=== PATIENT | female | born 1950 | race Caucasian/White ===

== ENCOUNTER → 2017-06-15 | Outpatient (CLI) | payer MEDICARE, BC | END | disposition home or self-care (01) | LOC: LABWHC1 11:53 | PROVIDERS: ATTEND Orthopaedic Surgery | DX: Z01.812 Encounter for preprocedural laboratory examination (principal) | CPT/HCPCS: 87070 ==

== ENCOUNTER → 2017-07-12 | Outpatient (CLI) | payer MEDICARE, BC ==
--- NOTE | 2017-07-12 15:02 | US ---
EXAMINATION TYPE: US venous doppler duplex LE LT DATE OF EXAM: 07/12/2017 2:39 PM COMPARISON: NONE CLINICAL HISTORY: S89.92XA,injury of left lower leg M79.605Pain in l; taking Xarelto x 4 years since PE after back surgery; recent fall between bed and camper wall with injury to left knee and below SIDE PERFORMED: Left TECHNIQUE: The lower extremity deep venous system is examined utilizing real time linear array sonog shana with graded compression, doppler sonography and color-flow sonography. VESSELS IMAGED: Common Femoral Vein Deep Femoral Vein Greater Saphenous Vein * Femoral Vein Popliteal Vein Small Saphenous Vein * Proximal Calf Veins (* superficial vessels) Left Leg: Hyperechoic intimal thickening noted left Femoral Vein mid and distally suggests non occlu ding DVT with chronic wall changes. IMPRESSION: Nonoccluding DVT as discussed above.
== END | disposition home or self-care (01) ==
LOC: RADUSWWP 13:46
PROVIDERS: ATTEND Family Medicine
DX: I82.412 Acute embolism and thrombosis of left femoral vein (principal)

== ENCOUNTER → 2017-08-03 | Outpatient (CLI) | payer MEDICARE, BC ==
[2017-08-03 13:32] LABS: Albumin 4.3 g/dL (3.5-5.0); Potassium 4.4 mmol/L (3.5-5.1); Total Bilirubin 0.4 mg/dL (0.2-1.3); Total Protein 6.9 g/dL (6.3-8.2)
[2017-08-03 13:34] LABS: INR 1.1 (<1.2); Partial Thromboplastin Time 23.1 sec (22.0-30.0); Prothrombin Time 10.4 sec (9.0-12.0)
[2017-08-03 13:50] LABS: Anisocytosis Slight; HCT 41.2 % (34.0-46.0); HGB 13.4 gm/dL (11.4-16.0); Hypochromasia Slight; MCHC 32.5 g/dL (31.0-37.0); MCV 95.4 fL (80.0-100.0); Mean Platelet Volume 7.3; Platelet Count 269 k/uL (150-450); RBC 4.32 m/uL (3.80-5.40); RDW 16.1 % (11.5-15.5); WBC 9.8 k/uL (3.8-10.6)
[2017-08-03 13:59] LABS: Appearance,Urine Turbid (Clear); Bacteria,Urine Moderate /hpf; Bilirubin,Urine Negative (Negative); Blood,Urine Small (Negative); Color,Urine Yellow; Glucose,Urine (UA) Negative (Negative); Hyaline Casts,Urine 14 /lpf (0-2); Ketones,Urine Negative (Negative); Leukocyte Esterase,Urine Large (Negative); Nitrite,Urine Positive (Negative); Protein,Urine Trace (Negative); RBC,Urine 127 /hpf (0-5); Specific Gravity,Urine 1.012 (1.001-1.035); Urobilinogen,Urine <2.0 mg/dL (<2.0); WBC,Urine >182 /hpf (0-5)
== END | disposition home or self-care (01) ==
LOC: LABPAT 12:38
PROVIDERS: ATTEND Orthopaedic Surgery
DX: Z01.812 Encounter for preprocedural laboratory examination (principal); Z79.01 Long term (current) use of anticoagulants
CPT/HCPCS: 36415; 80053; 81001; 85027; 85610; 85730

== ENCOUNTER 2017-08-10 09:14 | Inpatient (IN) | payer MEDICARE, BC ==
[2017-07-30 13:46] VITALS: BMI 44.4
[~2017-08-10 09:14] MED LIST: ACETAMINOPHEN TAB 500 MG TAB PO ONE; HYDROmorphone 0.5 MG/0.5 ML SYRINGE IVP PRN; LIDOCAINE 1% 20 ML VIAL (10MG/ML) FOR IV START INTRADERMA PRN; MELOXICAM 7.5 MG TAB PO ONE; ONDANSETRON 4 MG/2 ML VIAL IVP ONE; TRANEXAMIC ACID 1,000 MG in SODIUM CHLORIDE 0.9% 50 ML IVPB ONE
[2017-08-10 09:43] LABS: Glucose,Whole Blood 114 mg/dL (75-99)
[2017-08-10] MEDS: LACTATED RINGERS 1,000 ML IV SCH (09:45)
[2017-08-10] MEDS ORDERED: PHENYLEPHRINE-0.9% NACL SYG 1 MG/10 ML SYRINGE ONE (11:12)
[2017-08-10] MEDS ORDERED: SUCCINYLCHOLINE CHLORIDE 100 MG/5 ML SYR IV ONE (11:12)
[2017-08-10] MEDS ORDERED: MIDAZOLAM 2 MG/2 ML VIAL ONE (11:12)
[2017-08-10] MEDS ORDERED: SODIUM CHLORIDE 0.9% 100 ML BAG ONE (11:12)
[2017-08-10] MEDS ORDERED: LIDOCAINE 1% INJ 10MG/ML (20 ML MDV) ONE (11:12)
[2017-08-10] MEDS ORDERED: fentaNYL (PF) 50 MCG/ML 2 ML AMP ONE (11:12)
[2017-08-10] MEDS ORDERED: ePHEDrine SULFATE/0.9% NACL/PF 50 MG/5 ML SYRINGE IV ONE (11:12)
[2017-08-10] MEDS ORDERED: HEPARIN SODIUM,PORCINE 10,000 UNIT/ML 1 ML VIAL ONE (11:12)
[2017-08-10] MEDS ORDERED: KETAMINE 10 MG/ML 20 ML VIAL ONE (11:12)
[2017-08-10] MEDS ORDERED: SODIUM CHLORIDE 0.9% IRRIG 1,000 ML BTL IRRIGATION ONE (11:12)
[2017-08-10] MEDS ORDERED: PROPOFOL 10 MG/ML 20 ML VIAL IV ONE (11:12)
[2017-08-10] MEDS ORDERED: TRANEXAMIC ACID 1,000 MG/10 ML VIAL ONE (11:12)
[2017-08-10] MEDS: ROPIVACAINE 246.25 MG, EPINEPHrine 0.5 MG, KETOROLAC 30 MG, cloNIDine HCL/PF 80 MCG, WA... MISCELLANE ONE ×10 (11:20→11:48)
[2017-08-10] MEDS ORDERED: LACTATED RINGERS 1,000 ML IV ONE (12:17)
--- NOTE | 2017-08-10 12:42 | P.OP ---
Date of Procedure: 08/10/17 Preoperative Diagnosis: Severe osteoarthritis right hip Postoperative Diagnosis: Severe osteoarthritis right hip Procedure(s) Performed: Right total hip arthroplasty with a direct anterior approach Implants: Lao and nephew Polarstem size 5 standard Lao & Nephew R3, 3 hole acetabular shell, 52 mm Lao & Nephew reflection 6.5 mm cancellus screw, 20 mm 2 Lao & Nephew R3, XLPE 20 acetabular liner Lao & Nephew Oxinium femoral head 36 m, +4 All components were press-fit. The articulation is Oxinium on polyethylene. Anesthesia: GETA Surgeon: Hi Dykes Can Sealer #1: Daisy Stubbs Estimated Blood Loss (ml): 150 (60 mL returned with Cell Saver) Pathology: other (Femoral head) Condition: stable Disposition: PACU Indications for Procedure: After failure of conservative treatment we discussed the surgical and nonsurgical treatment options at length. Patient wishes to proceed with a total hip arthroplasty with a direct anterior approach. Complications specific to this procedure were discussed at length, including but not limited to infection, leg length discrepancy, dislocation, and nerve injury. Patient is aware of all these complications and informed consent was obtained Operative Findings: The operative findings are consistent with severe osteoarthritis of the right hip Description of Procedure: Patient was seen and evaluated in the preoperative area, consent was reviewed, and the surgical site was marked with a skin marker. Patient was then brought to the operating room and given prophylactic antibiotics intravenously. 1 g of Tranexamic acid was also given. A general anesthetic was administered by the anesthesia department. The patient was then placed on the [place] table with the bony prominences well-padded. The hip area was then prepped and draped in usual sterile fashion. A universal timeout was then performed, which confirmed the patient's name, surgical site, ALLERGIES, and procedure being performed. Next the incision site was located at 1 cm distal and 1 cm lateral to the anterior superior iliac spine. The skin and subcutaneous tissues were sharply incised. Incision was carefully dissected down to the fascia overlying the tensor fascia wilson muscle. This fascia was then incised in line with the incision. Next, using blunt finger dissection, the tensor fascia wilson muscle was dissected off its investing fascia. The muscle was then carefully retracted laterally with a cobra retractor over the lateral neck of the femur. Next, the circumflex vessels were identified and cauterized using the AquaMantis device. The anterior hip capsule was then exposed. The capsule was then opened and an inverted T fashion. Cobra retractors were then placed intracapsularly. The proximal femur was then visualized. The femoral neck was then osteotomized appropriate level above the lesser trochanter. Small amount of traction was placed with the [place] table. A small wedge of bone was then removed from the remaining femoral head. Next, using a corkscrew femoral head was easily removed from the acetabulum. On gross visual inspection, the femoral head had complete loss of articular cartilage in multiple periarticular osteophytes. Attention was then turned to the acetabulum. the acetabulum was exposed and any remaining labrum was excised. Sequential reaming of the acetabulum was performed using fluoroscopic guidance. When the appropriate size was reached, a trial was then placed. The position and fit of the trial was checked with fluoroscopy. The trial was then removed. Then, using fluoroscopic guidance, the final implant was impacted at 20 of anteversion and 40 of abduction, and fully seated in the acetabulum. 2 screws were then placed in the acetabulum. Again fluoroscopy was used to check position of the screws. Next, the liner was then impacted, with a 20 elevated liner located in the anterior superior quadrant. Component locking was confirmed. Attention was then directed to the femur. With the aid of the [place] table, the femur was externally rotated to approximately 130, extended, and abducted under the opposite leg. A side hook was then placed under the proximal femur, and the side hook elevator was used to elevate the proximal femur. Retractors were then placed. A capsular release was performed, as well as a release of the conjoined tendon, which afforded excellent visualization of the proximal femur. Next, a box osteotome was used to lateralize the proximal femur. A hand picker was then used to locate the femoral canal. Sequential broaching was then performed with appropriate size which afforded excellent fixation in the proximal femur. A trial was then placed with appropriate head and neck, and the hip was gently reduced with the aid of the [place] table. Fluoroscopy was then used to check position of the components, as well as to ensure equal leg lengths. The hip was then gently dislocated and the trials were then removed. Final implants were then impacted and the hip was again reduced. Final fluoroscopic x-rays confirmed that the components were in anatomic position, as well as equal leg lengths. The hip was also taken through range of motion, and found to be stable. The hip was then copiously irrigated with antibiotic solution with pulsatile lavage. The hip was then irrigated with Irrisept solution. The soft tissues were then injected with a ropivacaine solution, which consisted of 246.25 mg of ropivacaine, 0.5 mg of epinephrine, 30 mg of Toradol, 80 g of clonidine, and 48.45 mL of sterile water, for a total of 100 mL of fluid injected. A second dose of 1 g of Tranexamic acid was also given. the fascia was then closed with 2-0 strata fix suture. The subcutaneous tissue was closed with 3-0 Vicryl. The subcuticular tissue was closed with 3-0 strata fix suture. The skin was then closed with Dermabond glue and a sterile silver dressing. The patient was then transferred to the recovery room in stable condition. The assistant boys track coach KRISTA Posada was required due to the complexity of surgery, and the need for skilled assistant director of financial aid for positioning, draping, exposure, retraction, and closure of the wound.
--- NOTE | 2017-08-10 12:55 | FL ---
Fluoroscopy HISTORY: Anterior hip replacement 45 seconds fluoroscopy time supplied to the referring clinician. 3 intraoperative C-arm images docum ent the procedure. See dictated report from orthopedic surgery.
--- NOTE | 2017-08-10 13:04 | XR ---
Limited right hip HISTORY: Hip arthroplasty 3 intraoperative C-arm images document the procedure.
[2017-08-10] MEDS ORDERED: NALOXONE 0.4 MG/ML 1 ML VIAL IV PRN (14:36)
[2017-08-10] MEDS ORDERED: hydrOXYzine PAMOATE 25 MG CAP PO PRN (14:36)
[2017-08-10] MEDS ORDERED: DIAZEPAM 5 MG TAB PO PRN ×2 (14:36)
[2017-08-10] MEDS ORDERED: ONDANSETRON 4 MG/2 ML VIAL IVP PRN (14:36)
[2017-08-10] MEDS ORDERED: HYDROcodone/APAP 5-325MG 1 EACH TAB PO PRN (14:36)
[2017-08-10] MEDS ORDERED: HYDROmorphone 0.5 MG/0.5 ML SYRINGE IVP PRN ×3 (14:36)
[2017-08-10] MEDS ORDERED: MAGNESIUM HYDROXIDE 2,400 MG/10 ML CUP PO PRN (14:36)
--- NOTE | 2017-08-10 15:40 | XR ---
EXAMINATION TYPE: XR Hip Limited RT DATE OF EXAM: 08/10/2017 COMPARISON: NONE HISTORY: Postop TECHNIQUE: One view submitted. FINDINGS: There is postsurgical change in near anatomic alignment. There is soft tissue edema and emphysema. IMPRESSION: 1. Postoperative change. Appears in near-anatomic alignment.
[2017-08-10] MEDS ORDERED: GABAPENTIN 300 MG CAP PO PRN (16:13)
--- NOTE | 2017-08-10 17:11 | P.CONS ---
History of Present Illness - Reason for Consult Consult date: 08/10/17 Medical management Requesting physician: Hi Dykes - Chief Complaint s/p total right hip arthroplasty - History of Present Illness This is a 66-year-old female of Dr. Maddox. Status post total right hip arthroplasty with Dr. Dykes. Patient has a known medical history of GERD, depression, diabetes type 2, DVT and PE in which she takes xeralto at home. Patient also states that she has mitral valve prolapse in which she had a stress test and was cleared by cardiology prior to surgery. Patient is currently resting comfortably in bed. denies chest pain, shortness of breath, nausea or vomiting. Patient is having blood pressures in the 90s and complaining of some dizziness the low blood pressure. 500 mL normal saline bolus has been ordered and a home blood pressure medications have been held. Patient currently on xeralto per ortho surgerical services. Antibiotics have also ordered per surgical services. Surgical site clean dry and intact. Review of Systems Please see HPI otherwise unremarkable Past Medical History Past Medical History: Asthma, Diabetes Mellitus, Deep Vein Thrombosis (DVT), GERD/Reflux, Hyperlipidemia, Hypertension, Mitral Valve Prolapse (MVP), Osteoarthritis (OA), Pulmonary Embolus (PE), Thyroid Disorder Additional Past Medical History / Comment(s): scoliosis History of Any Multi-Drug Resistant Organisms: None Reported Past Surgical History: Back Surgery, Breast Surgery, Cholecystectomy, Heart Catheterization, Hernia Repair, Hysterectomy Additional Past Surgical History / Comment(s): spinal surgery with screws and metal plate, jennifer breast reduction Past Anesthesia/Blood Transfusion Reactions: No Reported Reaction Past Psychological History: Depression Smoking Status: Former smoker Past Alcohol Use History: Rare Additional Past Alcohol Use History / Comment(s): smoked 47 years 2 ppd quit Past Drug Use History: None Reported - Past Family History Mother Family Medical History: Cancer, Pneumonia Additional Family Medical History / Comment(s): breast cancer Medications and Allergies Home Medications Medication Instructions Recorded Confirmed Type Ranitidine HCl 150 mg PO BID 06/23/13 08/10/17 History Rivaroxaban [Xarelto] 15 mg PO DAILY 06/23/13 08/10/17 History Simvastatin [Zocor] 40 mg PO HS 06/23/13 08/10/17 History Terbinafine [LamISIL] 250 mg PO BID 06/23/13 08/10/17 History buPROPion HCL [Wellbutrin XL] 300 mg PO DAILY 06/23/13 08/10/17 History metFORMIN HCL [Glucophage] 500 mg PO BID 06/23/13 08/10/17 History predniSONE 20 mg PO DAILY #4 day 06/23/13 08/10/17 Rx rOPINIRole HCL [Requip] 0.25 mg PO HS 06/23/13 08/10/17 History Ascorbic Acid [Vitamin C] 500 mg PO DAILY 07/30/17 08/10/17 History Cholecalciferol [Vitamin D3] 1,000 unit PO DAILY 07/30/17 08/10/17 History DULoxetine HCL [Cymbalta] 60 mg PO DAILY 07/30/17 08/10/17 History Fluticasone/Umeclidin/Vilanter 1 puff INHALATION RT-DAILY 07/30/17 08/10/17 History [Trelegy Ellipta 100-62.5-25] Furosemide [Lasix] 40 mg PO DAILY 07/30/17 08/10/17 History Gabapentin [Neurontin] 300 mg PO DAILY PRN 07/30/17 08/10/17 History Levothyroxine Sodium [Synthroid] 25 mcg PO DAILY 07/30/17 08/10/17 History Losartan [Cozaar] 100 mg PO DAILY 07/30/17 08/10/17 History Mirabegron [Myrbetriq] 50 mg PO DAILY 07/30/17 08/10/17 History Multivitamins, Thera [Multivitamin 1 tab PO DAILY 07/30/17 08/10/17 History (formulary)] OLANZapine [ZyPREXA] 7.5 mg PO DAILY 07/30/17 08/10/17 History Vitamin E 1,000 unit PO DAILY 07/30/17 08/10/17 History Allergies Allergy/AdvReac Type Severity Reaction Status Date / Time No Known Allergies Allergy Verified 08/10/17 15:12 Physical Exam Vitals: Vital Signs Temp Pulse Resp BP Pulse Ox 08/10/17 14:00 100 16 120/59 95 08/10/17 13:45 97 18 110/59 95 08/10/17 13:27 96 16 105/55 93 L 08/10/17 13:19 97.0 F L 98 12 92/53 91 L 08/10/17 09:33 97.2 F L 97 16 134/77 93 L Intake and Output 08/10/17 08/10/17 08/10/17 06:59 14:59 22:59 Intake Total 1350 Output Total 150 Balance 1200 Intake: IV 1350 Output: Estimated Blood Loss 150 Head normocephalic Neck supple Lungs clear to auscultation bilaterally no wheezing or crackles Heart regular rate and rhythm S1-S2, no rub or gallop Abdomen is soft nontender nondistended positive bowel sounds no hepatosplenomegaly Extremities no edema. Right hip dressing clean dry and intact Neuro alert and orientated to 3 Results Labs: Abnormal Lab Results - Last 24 Hours (Table) 08/10/17 Range/Units 09:38 POC Glucose (mg/dL) 114 H (75-99) mg/dL Assessment and Plan Assessment: 1. post total right hip arthroplasty with Dr. Dykes. Patient currently on Kefzol and xeralto per surgical services. 2. Postsurgical hypotension: Patient received 500 mL bolus. Home blood medications currently on hold including Lasix, Aldactone and Cozaar 3. History of mitral valve prolapse. Patient states she had stress test and clearance from cardiology prior to surgery 4. History of DVT and pulmonary embolism. Patient was maintained on xeralto at home. Xeralto 20 mg by mouth ordered per Orthos services 5. Diabetes mellitus type 2. Sliding scale insulin ordered 6. History of bipolar depression. Patient states she takes Abilify, Wellbutrin , Cymbalta and Zyprexa at home. Medications will be reordered 7. History of hyperlipidemia 8. History of hypertension. Current blood pressure medications are on hold due to hypotension 9. Hypothyroidism. Patient's Synthroid resumed. DVT prophylaxis xeralto and SCDs. GI prophylaxis Pepcid Thank you for this consult. I performed an examination of the patient and discussed their management with the Nurse Practitioner. I have reviewed the Nurse Practitioner's notes and agree with the documented findings and plan of care Time with Patient: Greater than 30 (Greater than 60% of the total time spent in counseling and coordination of care)
[2017-08-10 17:19] LABS: Glucose,Whole Blood 149 mg/dL (75-99)
[2017-08-10] MEDS: SODIUM CHLORIDE 0.9% 1,000 ML IV SCH (18:06)
[2017-08-10] MEDS: INSULIN ASPART 100 UNIT/ML 1 ML 10 ML VIAL SQ SCH ×2 (18:16→21:26)
[2017-08-10 21:19] LABS: Glucose,Whole Blood 122 mg/dL (75-99)
[2017-08-10] MEDS: ATORVASTATIN 20 MG TAB PO SCH (21:26)
[2017-08-10] MEDS: SENNOSIDES-DOCUSATE SODIUM 1 EACH TAB PO SCH (21:26)
[2017-08-11] MEDS: SODIUM CHLORIDE 0.9% 1,000 ML IV SCH ×2 (03:10→11:45)
[2017-08-11] MEDS: LEVOTHYROXINE 25 MCG TAB PO SCH (06:21)
[2017-08-11 07:01] LABS: Glucose,Whole Blood 133 mg/dL (75-99)
[2017-08-11] MEDS: INSULIN ASPART 100 UNIT/ML 1 ML 10 ML VIAL SQ SCH ×4 (07:10→21:35)
[2017-08-11 07:30] LABS: Basophils % (A) 0 %; Eosinophils # (A) 0.1 k/uL (0-0.7); Eosinophils % (A) 1 %; HCT 36.6 % (34.0-46.0); HGB 11.5 gm/dL (11.4-16.0); Hypochromasia Slight; Lymphocytes # (A) 0.8 k/uL (1.0-4.8); Lymphocytes % (A) 7 %; MCH 29.5 pg (25.0-35.0); MCHC 31.4 g/dL (31.0-37.0); Mean Platelet Volume 7.3; Monocytes # (A) 0.7 k/uL (0-1.0); Monocytes % (A) 6 %; Neutrophils # (A) 9.7 k/uL (1.3-7.7); Neutrophils % (A) 84 %; Platelet Count 260 k/uL (150-450); RBC 3.89 m/uL (3.80-5.40); RDW 15.1 % (11.5-15.5); WBC 11.5 k/uL (3.8-10.6)
[2017-08-11 07:42] LABS: Albumin 3.4 g/dL (3.5-5.0); Potassium 5.1 mmol/L (3.5-5.1); Total Bilirubin 0.4 mg/dL (0.2-1.3); Total Protein 5.7 g/dL (6.3-8.2)
[2017-08-11] MEDS: TRELEGY ELLIPTA INHALATION SCH (08:10)
[2017-08-11] MEDS: ASCORBIC ACID 500 MG TAB PO SCH (09:06)
[2017-08-11] MEDS: buPROPion XL 300 MG TAB.ER.24H PO SCH (09:06)
[2017-08-11] MEDS: CHOLECALCIFEROL 1,000 UNIT TAB PO SCH (09:06)
[2017-08-11] MEDS: OLANZapine 2.5 MG TAB PO SCH (09:06)
[2017-08-11] MEDS: DULoxetine HCL 60 MG CAPSULE.DR PO SCH (09:06)
[2017-08-11] MEDS: HYDROcodone/APAP 5-325MG 1 EACH TAB PO PRN ×3 (09:06→21:58)
[2017-08-11] MEDS: FAMOTIDINE 20 MG TAB PO SCH (09:06)
[2017-08-11] MEDS: LACTATED RINGERS 1,000 ML IV SCH (09:41)
--- NOTE | 2017-08-11 10:35 | P.PN ---
Subjective Progress Note Date: 08/11/17 This is a 66-year-old female of Dr. Maddox. Status post total right hip arthroplasty with Dr. Dykes. Patient has a known medical history of GERD, depression, diabetes type 2, DVT and PE in which she takes xeralto at home. Patient also states that she has mitral valve prolapse in which she had a stress test and was cleared by cardiology prior to surgery. Patient is currently resting comfortably in bed. denies chest pain, shortness of breath, nausea or vomiting. Patient is having blood pressures in the 90s and complaining of some dizziness the low blood pressure. 500 mL normal saline bolus has been ordered and a home blood pressure medications have been held. Patient currently on xeralto per ortho surgerical services. Antibiotics have also ordered per surgical services. Surgical site clean dry and intact. On 08/11/2017 patient is currently sitting up in chair. Patient is sleepy due to administration of pain medication prior but able to answer questions. Patient states she has been up walking. Patient had episodes of hypotension yesterday. Patient received 2 500 mL boluses. Current blood pressure 102/65. Home blood pressure medications currently on hold. White blood cell this a.m. 11.5, UA and culture along with chest x-ray have been ordered. Bun 32 and creatinine 1.83. We'll continue IV fluid at 100 and continue to hold Aldactone , losartan and Lasix. Patient questioned about home medication of prednisone, patient states she took it for a temporary time for her breathing but has not been on it for multiple weeks. . Objective - Vital Signs Vital signs: Vital Signs Temp 98.3 F 08/11/17 07:35 Pulse 62 08/11/17 07:35 Resp 14 08/11/17 07:35 BP 102/65 08/11/17 07:35 Pulse Ox 96 08/11/17 07:35 Intake & Output 08/10/17 08/11/17 08/11/17 18:59 06:59 18:59 Intake Total 1350 1500 Output Total 150 Balance 1200 1500 Weight 140.6 kg Intake: IV 1350 Intake, IV Titration 900 Amount Sodium Chloride 0.9% 1, 800 000 ml @ 100 mls/hr IV . Q10H [facility] Rx#:[id number] ceFAZolin 3 gm In Sodium 100 Chloride 0.9% 50 ml @ 100 mls/hr IVPB Q8H [facility] Rx#: [id number] Oral 600 Output: Estimated Blood Loss 150 Other: Voiding Method Toilet # Voids 1 - Exam Head normocephalic Neck supple Lungs clear to auscultation bilaterally no wheezing or crackles Heart regular rate and rhythm S1-S2, no rub or gallop Abdomen is soft nontender nondistended positive bowel sounds no hepatosplenomegaly Extremities no edema, right hip dressing clean dry and intact Neuro alert and orientated to 3. Patient sleepy but arousable and answers questions appropriatley. - Labs CBC & Chem 7: 08/11/17 06:40 08/11/17 06:40 Labs: Abnormal Lab Results - Last 24 Hours (Table) 08/10/17 08/10/17 08/11/17 Range/Units 16:43 21:06 06:40 WBC 11.5 H (3.8-10.6) k/uL Neutrophils # 9.7 H (1.3-7.7) k/uL Lymphocytes # 0.8 L (1.0-4.8) k/uL BUN (7-17) mg/dL Creatinine (0.52-1.04) mg/dL Glucose (74-99) mg/dL POC Glucose (mg/dL) 149 H 122 H (75-99) mg/dL Total Protein (6.3-8.2) g/dL Albumin (3.5-5.0) g/dL 08/11/17 08/11/17 Range/Units 06:40 06:59 WBC (3.8-10.6) k/uL Neutrophils # (1.3-7.7) k/uL Lymphocytes # (1.0-4.8) k/uL BUN 32 H (7-17) mg/dL Creatinine 1.83 H (0.52-1.04) mg/dL Glucose 117 H (74-99) mg/dL POC Glucose (mg/dL) 133 H (75-99) mg/dL Total Protein 5.7 L (6.3-8.2) g/dL Albumin 3.4 L (3.5-5.0) g/dL Assessment and Plan Assessment: 1. post total right hip arthroplasty with Dr. Dykes. Patient currently on Kefzol and xarelto per surgical services. 2. Postsurgical hypotension: Patient received 500 mL bolus. Home blood medications currently on hold including Lasix, Aldactone and Cozaar. Blood pressure now 102/65 we'll continue to hold home blood pressure medications. 3. History of mitral valve prolapse. Patient states she had stress test and clearance from cardiology prior to surgery 4. History of DVT and pulmonary embolism. Patient was maintained on xarelto at home. Xarelto 20 mg by mouth ordered per [facility] services 5. Diabetes mellitus type 2. Sliding scale insulin ordered 6. History of bipolar depression. Patient states she takes Abilify, Wellbutrin , Cymbalta and Zyprexa at home. Medications will be reordered. Psych consulted due to multiple medications 7. History of hyperlipidemia 8. History of hypertension. Current blood pressure medications are on hold due to hypotension 9. Hypothyroidism. Patient's Synthroid resumed. 10. Acute kidney injury. Bun 32, creatinine 1.83. Will continue IV fluid at 100. We'll continue to hold home medications of Aldactone, Lasix, Cozaar. 11. Leukocytosis. White blood cell 11.5. Analysis, urine culture and chest x- ray has been ordered. Prednisone 20 mg listed on her home medications discussed with patient. Patient states she has not taken medication in multiple weeks and was prescribed by her primary care provider for breathing issues. DVT prophylaxis xeralto and SCDs. GI prophylaxis Pepcid
--- NOTE | 2017-08-11 11:00 | P.PN ---
Subjective Progress Note Date: 08/11/17 This is a 66 year-old female who is status post right total hip arthroplasty. This is postoperative day #1. Patient is seen and evaluated at bedside with Dr. Hi Dykes. Patient states that her pain is well-controlled. Patient denies any fever/chills, numbness, weakness, tingling, abdominal pain, shortness of breath or chest pain. Objective - Vital Signs Vital signs: Vital Signs Temp 98.3 F 08/11/17 07:35 Pulse 62 08/11/17 07:35 Resp 14 08/11/17 07:35 BP 102/65 08/11/17 07:35 Pulse Ox 96 08/11/17 07:35 Intake & Output 08/10/17 08/11/17 08/11/17 18:59 06:59 18:59 Intake Total 1350 1500 Output Total 150 Balance 1200 1500 Weight 140.6 kg Intake: IV 1350 Intake, IV Titration 900 Amount Sodium Chloride 0.9% 1, 800 000 ml @ 100 mls/hr IV . Q10H [facility] Rx#:[id number] ceFAZolin 3 gm In Sodium 100 Chloride 0.9% 50 ml @ 100 mls/hr IVPB Q8H [facility] Rx#: [id number] Oral 600 Output: Estimated Blood Loss 150 Other: Voiding Method Toilet # Voids 1 - Exam Vital signs are stable. Patient is in no acute distress and is alert and oriented 3. Calf is soft and nontender to palpation. Dressing is clean, dry, and intact. Patient has full foot and ankle motion without pain or difficulty. Neurovascular status and circulatory status are intact. - Labs CBC & Chem 7: 08/11/17 06:40 08/11/17 06:40 Labs: Abnormal Lab Results - Last 24 Hours (Table) 08/10/17 08/10/17 08/11/17 Range/Units 16:43 21:06 06:40 WBC 11.5 H (3.8-10.6) k/uL Neutrophils # 9.7 H (1.3-7.7) k/uL Lymphocytes # 0.8 L (1.0-4.8) k/uL BUN (7-17) mg/dL Creatinine (0.52-1.04) mg/dL Glucose (74-99) mg/dL POC Glucose (mg/dL) 149 H 122 H (75-99) mg/dL Total Protein (6.3-8.2) g/dL Albumin (3.5-5.0) g/dL 08/11/17 08/11/17 Range/Units 06:40 06:59 WBC (3.8-10.6) k/uL Neutrophils # (1.3-7.7) k/uL Lymphocytes # (1.0-4.8) k/uL BUN 32 H (7-17) mg/dL Creatinine 1.83 H (0.52-1.04) mg/dL Glucose 117 H (74-99) mg/dL POC Glucose (mg/dL) 133 H (75-99) mg/dL Total Protein 5.7 L (6.3-8.2) g/dL Albumin 3.4 L (3.5-5.0) g/dL Assessment and Plan (1) Primary osteoarthritis of right hip Current Visit: Yes Status: Acute Code(s): M16.11 - UNILATERAL PRIMARY OSTEOARTHRITIS, RIGHT HIP SNOMED Code(s): 069411800 (2) S/P total hip arthroplasty Current Visit: Yes Status: Acute Code(s): Z96.649 - PRESENCE OF UNSPECIFIED ARTIFICIAL HIP JOINT SNOMED Code(s): 031368253608 Plan: Continue routine postop care. Continue antocoagulation with Xarelto. Weightbearing as tolerated with a walker Leave dressing in place for 1 week Likely discharge to rehab Wednesday.
[2017-08-11 11:52] LABS: Glucose,Whole Blood 130 mg/dL (75-99)
--- NOTE | 2017-08-11 13:12 | XR ---
EXAMINATION TYPE: XR chest 2V DATE OF EXAM: 08/11/2017 COMPARISON: Prior chest x-ray 04/17/2013 HISTORY: Elevated white blood cell count, longterm placement, postop TECHNIQUE: Frontal and lateral views of the chest are obtained. FINDINGS: Patchy basilar density is present. There is no evident pneumothorax or pleural effusion. C ardiac mediastinal silhouette, pulmonary vascularity and michelle are stable. Prominent lung volume may b e indicative of COPD. IMPRESSION: Basilar atelectasis, correlate to exclude pneumonia, follow-up suggested.
--- NOTE | 2017-08-11 13:42 | P.CN ---
Psychiatric Consult - . Consult date: 08/11/17 Consult:: Identification data/reason for consult: The patient is a 66-year-old female admitted to surgery for right hip arthroplasty. The surgeons submitted a consult to evaluate the patient's multiple psychiatric medications. Psychiatric history: I reviewed the medical record and interviewed the patient. She confirmed that she is taking for psychotropic medications; Abilify 20 mg daily, Wellbutrin XL 300 mg daily, Cymbalta 60 mg daily and Zyprexa 7.5 mg daily. She stated that she's been taking this medication combination for " about 8 months." The medications are prescribed by her primary care provider, Dr. Maddox, at [facility]. She denied side effects to the medications and reported a marked improvement in her mood since she was taking this medication combination. Her daughter was also present during interview and remarked that her mother "is doing the best I seen her." She denied feeling depressed, sad, hopeless or helpless. She denied thoughts of or suicide. She described a history of depression and treatment of depression for more than 20 years. She received all of her psychotropic medications from her primary care provider. She had met with an individual therapist in the past but was transitioned out of individual therapy several years ago. She described a history of classic depressive symptoms including hopelessness, helplessness and worthlessness, feelings of guilt, thoughts of suicide, insomnia , impairment in her capacity etc. She denied a history of sustained irritability, elevated mood or euphoria consistent with kaykay or hypomania. She denied a history of psychotic symptoms such as auditory, visual or olfactory house hallucinations. She denied history of problems with alcohol or drugs. Past psychiatric history: She denied psychiatric hospitalizations. She denied history of suicide attempts or gestures. Social history: She lives in [facility] screen was In particular her of 47 years. They are retired. He has a daughter, son and 6 grandchildren. Mental status examination she presented as an obese 66-year-old female who was pleasant on approach. She made eye contact and attempted to interview. She had no prominent physical abnormalities. She had a blunted but bright facial expression. She is alert and oriented to person, place and time. She showed psychomotor retardation but no abnormal involuntary movements. Her speech was spontaneous with normal rate, rhythm and volume. Her affect was blunted but stable and appropriate. She denied suicidal ideation or wishes. She denied homicidal ideation. She denied such depressive cognitions as hopelessness, helplessness and worthlessness. She did not express ideas reference, phobias, paranoid ideation, magical ideation or delusional thoughts or beliefs. Her thinking was abstract and associations were coherent, logical and goal directed. She denied hallucinations and did not appear to be responding to internal stimuli. Impression: Major depressive disorder recurrent in full sustained remission Recommendation: Continue current psychiatric medications. Refer to her primary care provider for continued management of the medications and the discussion of any changes if necessary. Thank you for this consult. 08/11/17 13:30
[2017-08-11] MEDS: RIVAROXABAN 20 MG TAB PO SCH (17:23)
[2017-08-11 17:24] LABS: Glucose,Whole Blood 135 mg/dL (75-99)
[2017-08-11 20:57] LABS: Glucose,Whole Blood 138 mg/dL (75-99)
[2017-08-11] MEDS: ATORVASTATIN 20 MG TAB PO SCH (21:35)
[2017-08-11] MEDS: SENNOSIDES-DOCUSATE SODIUM 1 EACH TAB PO SCH (21:35)
[2017-08-12] MEDS: HYDROcodone/APAP 5-325MG 1 EACH TAB PO PRN ×4 (04:47→21:24)
[2017-08-12] MEDS: LEVOTHYROXINE 25 MCG TAB PO SCH (06:23)
[2017-08-12 07:04] LABS: Glucose,Whole Blood 135 mg/dL (75-99)
[2017-08-12 07:17] LABS: Albumin 3.2 g/dL (3.5-5.0); Calcium 9.1 mg/dL (8.4-10.2); Potassium 4.5 mmol/L (3.5-5.1); Total Bilirubin 0.5 mg/dL (0.2-1.3); Total Protein 5.6 g/dL (6.3-8.2)
[2017-08-12] MEDS: INSULIN ASPART 100 UNIT/ML 1 ML 10 ML VIAL SQ SCH ×4 (07:32→21:23)
[2017-08-12] MEDS: TRELEGY ELLIPTA INHALATION SCH (07:48)
[2017-08-12] MEDS: SODIUM CHLORIDE 0.9% 1,000 ML IV SCH ×3 (07:53→21:33)
[2017-08-12] MEDS: LACTATED RINGERS 1,000 ML IV SCH (07:54)
[2017-08-12] MEDS: FAMOTIDINE 20 MG TAB PO SCH (08:28)
[2017-08-12] MEDS: ASCORBIC ACID 500 MG TAB PO SCH (08:28)
[2017-08-12] MEDS: buPROPion XL 300 MG TAB.ER.24H PO SCH (08:28)
[2017-08-12] MEDS: CHOLECALCIFEROL 1,000 UNIT TAB PO SCH (08:28)
[2017-08-12] MEDS: OLANZapine 2.5 MG TAB PO SCH (08:29)
--- NOTE | 2017-08-12 08:29 | P.PN ---
Subjective Progress Note Date: 08/12/17 This is a 66 year-old female who is status post right total hip arthroplasty. This is postoperative day #2. Patient is seen and evaluated at bedside. Patient states that her pain is well-controlled today and she has been up and walking with physical therapy. Patient denies any fever/chills, numbness, weakness, tingling, abdominal pain, shortness of breath or chest pain. Objective - Vital Signs Vital signs: Vital Signs Temp 97.2 F L 08/12/17 07:15 Pulse 86 08/12/17 07:15 Resp 12 08/12/17 07:15 BP 113/71 08/12/17 07:15 Pulse Ox 95 08/12/17 07:15 Intake & Output 08/11/17 08/12/17 08/12/17 18:59 06:59 18:59 Intake Total 400 300 550 Balance 400 300 550 Intake: Intake, IV Titration 400 Amount Sodium Chloride 0.9% 1, 400 000 ml @ 100 mls/hr IV . Q10H [facility] Rx#:[id number] Oral 300 550 Other: Voiding Method Toilet Bedside Commode # Voids 2 3 1 - Exam Vital signs are stable. Patient is in no acute distress and is alert and oriented 3. Calf is soft and nontender to palpation. Dressing is clean, dry, and intact. Patient has full foot and ankle motion without pain or difficulty. Neurovascular status and circulatory status are intact. - Labs CBC & Chem 7: 08/11/17 06:40 08/12/17 06:17 Labs: Abnormal Lab Results - Last 24 Hours (Table) 08/11/17 08/11/17 08/11/17 Range/Units 11:38 17:15 20:35 BUN (7-17) mg/dL Creatinine (0.52-1.04) mg/dL Glucose (74-99) mg/dL POC Glucose (mg/dL) 130 H 135 H 138 H (75-99) mg/dL Total Protein (6.3-8.2) g/dL Albumin (3.5-5.0) g/dL 08/12/17 08/12/17 Range/Units 06:17 06:47 BUN 28 H (7-17) mg/dL Creatinine 1.22 H (0.52-1.04) mg/dL Glucose 122 H (74-99) mg/dL POC Glucose (mg/dL) 135 H (75-99) mg/dL Total Protein 5.6 L (6.3-8.2) g/dL Albumin 3.2 L (3.5-5.0) g/dL Assessment and Plan (1) Primary osteoarthritis of right hip Current Visit: Yes Status: Acute Code(s): M16.11 - UNILATERAL PRIMARY OSTEOARTHRITIS, RIGHT HIP SNOMED Code(s): 072716734 (2) S/P total hip arthroplasty Current Visit: Yes Status: Acute Code(s): Z96.649 - PRESENCE OF UNSPECIFIED ARTIFICIAL HIP JOINT SNOMED Code(s): 607168105211 Plan: Continue routine postop care. Continue antocoagulation with Xarelto. Weightbearing as tolerated with a walker Leave dressing in place for 1 week Likely discharge to rehab Wednesday.
[2017-08-12] MEDS: DULoxetine HCL 60 MG CAPSULE.DR PO SCH (09:41)
[2017-08-12 09:52] LABS: Basophils % (A) 0 %; Eosinophils # (A) 0.2 k/uL (0-0.7); Eosinophils % (A) 3 %; HCT 32.7 % (34.0-46.0); HGB 10.2 gm/dL (11.4-16.0); Lymphocytes # (A) 0.7 k/uL (1.0-4.8); Lymphocytes % (A) 8 %; MCH 29.3 pg (25.0-35.0); MCHC 31.3 g/dL (31.0-37.0); MCV 93.5 fL (80.0-100.0); Mean Platelet Volume 8.3; Monocytes # (A) 0.7 k/uL (0-1.0); Monocytes % (A) 8 %; Neutrophils # (A) 6.6 k/uL (1.3-7.7); Neutrophils % (A) 80 %; Platelet Count 200 k/uL (150-450); WBC 8.3 k/uL (3.8-10.6)
--- NOTE | 2017-08-12 10:41 | P.PN ---
Subjective Progress Note Date: 08/12/17 This is a 66-year-old female of Dr. Maddox. Status post total right hip arthroplasty with Dr. Dykes. Patient has a known medical history of GERD, depression, diabetes type 2, DVT and PE in which she takes xeralto at home. Patient also states that she has mitral valve prolapse in which she had a stress test and was cleared by cardiology prior to surgery. Patient is currently resting comfortably in bed. denies chest pain, shortness of breath, nausea or vomiting. Patient is having blood pressures in the 90s and complaining of some dizziness the low blood pressure. 500 mL normal saline bolus has been ordered and a home blood pressure medications have been held. Patient currently on xeralto per ortho surgerical services. Antibiotics have also ordered per surgical services. Surgical site clean dry and intact. On 08/11/2017 patient is currently sitting up in chair. Patient is sleepy due to administration of pain medication prior but able to answer questions. Patient states she has been up walking. Patient had episodes of hypotension yesterday. Patient received 2 500 mL boluses. Current blood pressure 102/65. Home blood pressure medications currently on hold. White blood cell this a.m. 11.5, UA and culture along with chest x-ray have been ordered. Bun 32 and creatinine 1.83. We'll continue IV fluid at 100 and continue to hold Aldactone , losartan and Lasix. Patient questioned about home medication of prednisone, patient states she took it for a temporary time for her breathing but has not been on it for multiple weeks. 08/12/2017 patient sitting up in bed. She has taken her oxygen off. She does not feel short of breath. We will monitor her off of oxygen. Denies any chest pain shortness of breath. Denies any nausea or vomiting. Reports passing gas no bowel movement yet. Denies any difficulty urinating. Creatinine is improving down to 1.22. White count normalized 8.3. Hemoglobin dropped to 10.2 Objective - Vital Signs Vital signs: Vital Signs Temp 97.2 F L 08/12/17 07:15 Pulse 86 08/12/17 07:15 Resp 12 08/12/17 07:15 BP 113/71 08/12/17 07:15 Pulse Ox 95 08/12/17 07:15 Intake & Output 08/11/17 08/12/17 08/12/17 18:59 06:59 18:59 Intake Total 400 300 550 Balance 400 300 550 Intake: Intake, IV Titration 400 Amount Sodium Chloride 0.9% 1, 400 000 ml @ 100 mls/hr IV . Q10H [facility] Rx#:[id number] Oral 300 550 Other: Voiding Method Toilet Bedside Commode # Voids 2 3 1 - Exam Head normocephalic Neck supple Lungs clear to auscultation bilaterally no wheezing or crackles Heart regular rate and rhythm S1-S2, no rub or gallop Abdomen is soft nontender nondistended positive bowel sounds no hepatosplenomegaly Extremities no edema. Right hip dressing clean dry and intact, no cellulitis Neuro alert and orientated to 3 - Labs CBC & Chem 7: 08/12/17 06:17 08/12/17 06:17 Labs: Abnormal Lab Results - Last 24 Hours (Table) 08/11/17 08/11/17 08/11/17 Range/Units 11:38 17:15 20:35 RBC (3.80-5.40) m/uL Hgb (11.4-16.0) gm/dL Hct (34.0-46.0) % Lymphocytes # (1.0-4.8) k/uL BUN (7-17) mg/dL Creatinine (0.52-1.04) mg/dL Glucose (74-99) mg/dL POC Glucose (mg/dL) 130 H 135 H 138 H (75-99) mg/dL Total Protein (6.3-8.2) g/dL Albumin (3.5-5.0) g/dL 08/12/17 08/12/17 08/12/17 Range/Units 06:17 06:17 06:47 RBC 3.50 L (3.80-5.40) m/uL Hgb 10.2 L (11.4-16.0) gm/dL Hct 32.7 L (34.0-46.0) % Lymphocytes # 0.7 L (1.0-4.8) k/uL BUN 28 H (7-17) mg/dL Creatinine 1.22 H (0.52-1.04) mg/dL Glucose 122 H (74-99) mg/dL POC Glucose (mg/dL) 135 H (75-99) mg/dL Total Protein 5.6 L (6.3-8.2) g/dL Albumin 3.2 L (3.5-5.0) g/dL Assessment and Plan Assessment: 1. Status post total right hip arthroplasty with Dr. Dykes. Patient currently on Kefzol and xarelto per surgical services. 2. Postsurgical hypotension: Patient received 500 mL bolus. Home blood medications currently on hold including Lasix, Aldactone and Cozaar. Blood pressure slowly showing improvement. Continue to hold BP home medications 3. History of mitral valve prolapse. Patient states she had stress test and clearance from cardiology prior to surgery 4. History of DVT and pulmonary embolism. Patient was maintained on xarelto at home. Xarelto 20 mg by mouth ordered per [facility] 5. Diabetes mellitus type 2. Sliding scale insulin ordered 6. History of bipolar, depression. Patient states she takes Abilify, Wellbutrin, Cymbalta and Zyprexa at home. Medications will be reordered. Patient seen by psychiatry. They're recommending CT continue current home psych medications 7. History of hyperlipidemia 8. History of hypertension. Current blood pressure medications are on hold due to hypotension 9. Hypothyroidism. Patient's Synthroid resumed. 10. Acute kidney injury. Bun 32, creatinine 1.83. We'll continue to hold home medications of Aldactone, Lasix, Cozaar. Kidney function improving. Continue to monitor 11. Leukocytosis. Resolved. Chest x-ray showing atelectasis. Doubt pneumonia. Patient denies any cough or fever. Encourage incentive spirometer use. Urinalysis pending Prednisone 20 mg listed on her home medications discussed with patient. Patient states she has not taken medication in multiple weeks and was prescribed by her primary care provider for breathing issues. 12. Expected acute blood loss anemia secondary to surgical procedure. We'll start iron supplement. Repeat CBC in a.m. DVT prophylaxis Xarelto and GI prophylaxis Pepcid Anticipate discharge to [facility] tomorrow I performed an examination of the patient and discussed their management with the physician Radio Reporter. I have reviewed the Physician Radio Reporter's notes and agree with the documented findings and plan of care
[2017-08-12 11:06] LABS: Glucose,Whole Blood 147 mg/dL (75-99)
[2017-08-12 17:18] LABS: Glucose,Whole Blood 116 mg/dL (75-99)
[2017-08-12] MEDS: RIVAROXABAN 20 MG TAB PO SCH (17:29)
[2017-08-12 19:45] LABS: Glucose,Whole Blood 176 mg/dL (75-99)
[2017-08-12] MEDS: ATORVASTATIN 20 MG TAB PO SCH (21:23)
[2017-08-12] MEDS: FERROUS SULFATE 325 MG TAB PO SCH (21:23)
[2017-08-12] MEDS: SENNOSIDES-DOCUSATE SODIUM 1 EACH TAB PO SCH (21:23)
[2017-08-13 02:07] VITALS: RESP 16; TEMP 98.3
[2017-08-13] MEDS: HYDROcodone/APAP 5-325MG 1 EACH TAB PO PRN ×2 (03:58→10:07)
[2017-08-13] MEDS: LACTATED RINGERS 1,000 ML IV SCH (05:28)
[2017-08-13] MEDS: LEVOTHYROXINE 25 MCG TAB PO SCH (06:22)
[2017-08-13 06:54] LABS: Basophils % (A) 0 %; Eosinophils # (A) 0.3 k/uL (0-0.7); Eosinophils % (A) 3 %; HCT 31.2 % (34.0-46.0); HGB 9.7 gm/dL (11.4-16.0); Lymphocytes # (A) 0.8 k/uL (1.0-4.8); Lymphocytes % (A) 10 %; MCH 29.1 pg (25.0-35.0); MCHC 31.2 g/dL (31.0-37.0); MCV 93.6 fL (80.0-100.0); Mean Platelet Volume 7.4; Monocytes # (A) 0.5 k/uL (0-1.0); Monocytes % (A) 7 %; Neutrophils # (A) 6.4 k/uL (1.3-7.7); Neutrophils % (A) 78 %; Platelet Count 233 k/uL (150-450); RBC 3.34 m/uL (3.80-5.40); WBC 8.2 k/uL (3.8-10.6)
[2017-08-13 06:56] LABS: Potassium 4.5 mmol/L (3.5-5.1); Total Bilirubin 0.4 mg/dL (0.2-1.3); Total Protein 5.4 g/dL (6.3-8.2)
[2017-08-13 06:58] LABS: Glucose,Whole Blood 144 mg/dL (75-99)
[2017-08-13 07:28] VITALS: BP 128/76; PULSE 80
[2017-08-13] MEDS: INSULIN ASPART 100 UNIT/ML 1 ML 10 ML VIAL SQ SCH ×2 (08:10→12:08)
[2017-08-13] MEDS: TRELEGY ELLIPTA INHALATION SCH (08:16)
--- NOTE | 2017-08-13 08:22 | P.DS ---
Providers Date of admission: 08/10/17 09:14 Expected date of discharge: 08/13/17 Attending physician: Hi Dykes Consults: 08/10/17 14:36 Consult Physician Routine Consulting Provider: Geneva Maddox Consult Reason/Comments: medical management and anticoagulation Do you want consulting provider notified?: Yes 08/10/17 15:35 Consult Physician Routine Consulting Provider: Kalee Sweet Consult Reason/Comments: medical management Do you want consulting provider notified?: Yes 08/10/17 17:18 Consult Physician Routine Consulting Provider: Isak Oneal Consult Reason/Comments: Multiple psych medications Do you want consulting provider notified?: Yes 08/10/17 18:30 Consult Physician Routine Consulting Provider: Mati Roberts Consult Reason/Comments: Multiple psych medications Do you want consulting provider notified?: Already Contacted Primary care physician: Geneva Maddxo - Discharge Diagnosis(es) (1) Primary osteoarthritis of right hip Current Visit: Yes Status: Acute (2) S/P total hip arthroplasty Current Visit: Yes Status: Acute Hospital Course: This is a 66-year-old female with known history of degenerative arthritis of the right hip. The patient presents for evaluation. After discussion and consideration patient elects to proceed with total hip arthroplasty. The patient is seen preoperatively by Dr. Dykes and medically cleared for surgery by their primary care physician. Patient is admitted to [facility] on 08/10/2017 for total hip arthroplasty. The procedures performed without complication or sequelae. The patient is doing well postoperatively. Labs and vital signs are stable on day of discharge. On day of discharge patient's hip incision is healing well. There is minimal erythema. There is no drainage noted at this time. There is minimal soft tissue swelling to the hip and thigh. Patient has full foot and ankle motion without difficulty or pain. Neurovascular status to the right lower extremity is intact. Patient is discharged to rehab in good condition. Please see med rec for accurate list of home medications. Plan - Discharge Summary Discharge Rx Participant: Yes New Discharge Prescriptions: New HYDROcodone/APAP 5-325MG [[place] 5-325] 1 - 2 tab PO Q4-6H PRN #90 tab PRN Reason: Pain Rivaroxaban [Xarelto] 1 tab PO DAILY #30 tab Sennosides [Senokot] 1 tab PO BID #60 tablet No Action rOPINIRole HCL [Requip] 0.25 mg PO HS buPROPion HCL [Wellbutrin XL] 300 mg PO DAILY metFORMIN HCL [Glucophage] 500 mg PO BID Simvastatin [Zocor] 40 mg PO HS Rivaroxaban [Xarelto] 15 mg PO DAILY Ranitidine HCl 150 mg PO BID Terbinafine [LamISIL] 250 mg PO BID predniSONE 20 mg PO DAILY #4 day Furosemide [Lasix] 40 mg PO DAILY Multivitamins, Thera [Multivitamin (formulary)] 1 tab PO DAILY Cholecalciferol [Vitamin D3] 1,000 unit PO DAILY Ascorbic Acid [Vitamin C] 500 mg PO DAILY Vitamin E 1,000 unit PO DAILY Fluticasone/Umeclidin/Vilanter [Trelegy Ellipta 100-62.5-25] 1 puff INHALATION RT-DAILY Levothyroxine Sodium [Synthroid] 25 mcg PO DAILY OLANZapine [ZyPREXA] 7.5 mg PO DAILY Mirabegron [Myrbetriq] 50 mg PO DAILY DULoxetine HCL [Cymbalta] 60 mg PO DAILY Losartan [Cozaar] 100 mg PO DAILY Gabapentin [Neurontin] 300 mg PO DAILY PRN PRN Reason: Pain Spironolactone [Aldactone] 500 mg PO DAILY ARIPiprazole [Abilify] 20 mg PO DAILY Discharge Medication List Ranitidine HCl 150 mg PO BID 06/23/13 [History] Rivaroxaban [Xarelto] 15 mg PO DAILY 06/23/13 [History] Simvastatin [Zocor] 40 mg PO HS 06/23/13 [History] Terbinafine [LamISIL] 250 mg PO BID 06/23/13 [History] buPROPion HCL [Wellbutrin XL] 300 mg PO DAILY 06/23/13 [History] metFORMIN HCL [Glucophage] 500 mg PO BID 06/23/13 [History] predniSONE 20 mg PO DAILY #4 day 06/23/13 [Rx] rOPINIRole HCL [Requip] 0.25 mg PO HS 06/23/13 [History] Ascorbic Acid [Vitamin C] 500 mg PO DAILY 07/30/17 [History] Cholecalciferol [Vitamin D3] 1,000 unit PO DAILY 07/30/17 [History] DULoxetine HCL [Cymbalta] 60 mg PO DAILY 07/30/17 [History] Fluticasone/Umeclidin/Vilanter [Trelegy Ellipta 100-62.5-25] 1 puff INHALATION RT-DAILY 07/30/17 [History] Furosemide [Lasix] 40 mg PO DAILY 07/30/17 [History] Gabapentin [Neurontin] 300 mg PO DAILY PRN 07/30/17 [History] Levothyroxine Sodium [Synthroid] 25 mcg PO DAILY 07/30/17 [History] Losartan [Cozaar] 100 mg PO DAILY 07/30/17 [History] Mirabegron [Myrbetriq] 50 mg PO DAILY 07/30/17 [History] Multivitamins, Thera [Multivitamin (formulary)] 1 tab PO DAILY 07/30/17 [History ] OLANZapine [ZyPREXA] 7.5 mg PO DAILY 07/30/17 [History] Vitamin E 1,000 unit PO DAILY 07/30/17 [History] ARIPiprazole [Abilify] 20 mg PO DAILY 08/10/17 [History] Spironolactone [Aldactone] 500 mg PO DAILY 08/10/17 [History] HYDROcodone/APAP 5-325MG [[place] 5-325] 1 - 2 tab PO Q4-6H PRN #90 tab 08/13/17 [ Rx] Rivaroxaban [Xarelto] 1 tab PO DAILY #30 tab 08/13/17 [Rx] Sennosides [Senokot] 1 tab PO BID #60 tablet 08/13/17 [Rx] Follow up Appointment(s)/Referral(s): Hi Dykes DO [Doctor of Osteopathic Medicine] - 08/23/17 3:40 pm Geneva Maddox DO [Primary Care Provider] - 08/17/17 1:00 pm (With Veronique) Activity/Diet/Wound Care/Special Instructions: Weightbearing as tolerated with walker Leave dressing intact. Dressing may be removed by home care nurse in 10 days. May shower with dressing on. Follow-up with [facility] in 2 weeks, please call with any questions or concerns [phone] Discharge Disposition: TRANSFER TO SNF/ECF
[2017-08-13] MEDS: DULoxetine HCL 60 MG CAPSULE.DR PO SCH (08:24)
[2017-08-13] MEDS: FERROUS SULFATE 325 MG TAB PO SCH (08:24)
[2017-08-13] MEDS: ASCORBIC ACID 500 MG TAB PO SCH (08:24)
[2017-08-13] MEDS: FAMOTIDINE 20 MG TAB PO SCH (08:24)
[2017-08-13] MEDS: CHOLECALCIFEROL 1,000 UNIT TAB PO SCH (08:24)
[2017-08-13] MEDS: buPROPion XL 300 MG TAB.ER.24H PO SCH (08:24)
[2017-08-13] MEDS: OLANZapine 2.5 MG TAB PO SCH (08:25)
[2017-08-13 11:27] LABS: Glucose,Whole Blood 130 mg/dL (75-99)
--- NOTE | 2017-08-13 12:30 | P.PN ---
Subjective Progress Note Date: 08/13/17 This is a 66-year-old female of Dr. Maddox. Status post total right hip arthroplasty with Dr. Dykes. Patient has a known medical history of GERD, depression, diabetes type 2, DVT and PE in which she takes xeralto at home. Patient also states that she has mitral valve prolapse in which she had a stress test and was cleared by cardiology prior to surgery. Patient is currently resting comfortably in bed. denies chest pain, shortness of breath, nausea or vomiting. Patient is having blood pressures in the 90s and complaining of some dizziness the low blood pressure. 500 mL normal saline bolus has been ordered and a home blood pressure medications have been held. Patient currently on xeralto per ortho surgerical services. Antibiotics have also ordered per surgical services. Surgical site clean dry and intact. On 08/11/2017 patient is currently sitting up in chair. Patient is sleepy due to administration of pain medication prior but able to answer questions. Patient states she has been up walking. Patient had episodes of hypotension yesterday. Patient received 2 500 mL boluses. Current blood pressure 102/65. Home blood pressure medications currently on hold. White blood cell this a.m. 11.5, UA and culture along with chest x-ray have been ordered. Bun 32 and creatinine 1.83. We'll continue IV fluid at 100 and continue to hold Aldactone , losartan and Lasix. Patient questioned about home medication of prednisone, patient states she took it for a temporary time for her breathing but has not been on it for multiple weeks. 08/12/2017 patient sitting up in bed. She has taken her oxygen off. She does not feel short of breath. We will monitor her off of oxygen. Denies any chest pain shortness of breath. Denies any nausea or vomiting. Reports passing gas no bowel movement yet. Denies any difficulty urinating. Creatinine is improving down to 1.22. White count normalized 8.3. Hemoglobin dropped to 10.2 August 13 2017 patient sitting up in bedside chair. Pain is controlled. She denies any chest pain shortness breath. Denies any nausea or vomiting. Reports passing gas. No bowel movement. Denies any difficulty urinating. Hemoglobin has dropped to 9.2 she needs to continue her ferrous sulfate. Recommend checking a CBC in 1 week. Kidney functions have improved creatinine is normal at 0.94. Objective - Vital Signs Vital signs: Vital Signs Temp 98.3 F 08/13/17 07:27 Pulse 80 08/13/17 07:27 Resp 16 08/13/17 07:27 BP 128/76 08/13/17 07:27 Pulse Ox 94 L 08/13/17 08:16 Intake & Output 08/12/17 08/13/17 08/13/17 18:59 06:59 18:59 Intake Total 770 1190 Balance 770 1190 Intake: Intake, IV Titration 100 650 Amount Sodium Chloride 0.9% 1, 100 650 000 ml @ 50 mls/hr IV . Q20H [facility] Rx#:[id number] Oral 670 540 Other: Voiding Method Bedside Commode Toilet Bedside Commode # Voids 1 2 # Bowel Movements 0 - Exam Head normocephalic Neck supple Lungs clear to auscultation bilaterally no wheezing or crackles Heart regular rate and rhythm S1-S2, no rub or gallop Abdomen is soft nontender nondistended positive bowel sounds no hepatosplenomegaly Extremities no edema. Right hip dressing clean dry and intact, no cellulitis Neuro alert and orientated to 3 - Labs CBC & Chem 7: 08/13/17 06:13 08/13/17 06:13 Labs: Abnormal Lab Results - Last 24 Hours (Table) 08/12/17 08/12/17 08/13/17 Range/Units 17:11 19:43 06:13 RBC 3.34 L (3.80-5.40) m/uL Hgb 9.7 L (11.4-16.0) gm/dL Hct 31.2 L (34.0-46.0) % Lymphocytes # 0.8 L (1.0-4.8) k/uL BUN (7-17) mg/dL Glucose (74-99) mg/dL POC Glucose (mg/dL) 116 H 176 H (75-99) mg/dL Total Protein (6.3-8.2) g/dL Albumin (3.5-5.0) g/dL 08/13/17 08/13/17 08/13/17 Range/Units 06:13 06:56 11:12 RBC (3.80-5.40) m/uL Hgb (11.4-16.0) gm/dL Hct (34.0-46.0) % Lymphocytes # (1.0-4.8) k/uL BUN 23 H (7-17) mg/dL Glucose 121 H (74-99) mg/dL POC Glucose (mg/dL) 144 H 130 H (75-99) mg/dL Total Protein 5.4 L (6.3-8.2) g/dL Albumin 3.0 L (3.5-5.0) g/dL Assessment and Plan Assessment: 1. Status post total right hip arthroplasty with Dr. Dykes. Patient currently on Kefzol and xarelto per surgical services. 2. Expected postoperative hypotension: Likely medication induced from anesthesia and pain medication and also hypokalemic. Improved with IV fluids. Patient received 500 mL bolus. Home blood medications currently on hold including Lasix, Aldactone and Cozaar. Blood pressure slowly showing improvement. Continue to hold BP home medications. Blood pressure medications have been adjusted. Lasix and Aldactone discontinued during this admission. Cozaar has been decreased from 100 to 50 mg daily 3. History of mitral valve prolapse. Patient states she had stress test and clearance from cardiology prior to surgery 4. History of DVT and pulmonary embolism. Patient was maintained on xarelto at home. Xarelto 20 mg by mouth ordered per [facility] 5. Diabetes mellitus type 2. Okay to resume oral hypoglycemics 6. History of bipolar, depression. Patient states she takes Abilify, Wellbutrin, Cymbalta and Zyprexa at home. Medications will be reordered. Patient seen by psychiatry. They're recommending CT continue current home psych medications 7. History of hyperlipidemia 8. History of hypertension. Current blood pressure medications are on hold due to hypotension 9. Hypothyroidism. Patient's Synthroid resumed. 10. Acute kidney injury. Bun 32, creatinine 1.83. Kidney function improving. Continue to monitor. Creatinine 0.94 at discharge. Kidney functions have normalized 11. Leukocytosis. Resolved. Chest x-ray showing atelectasis. Doubt pneumonia. Patient denies any cough or fever. Encourage incentive spirometer use. Urinalysis pending Prednisone 20 mg listed on her home medications discussed with patient. Patient states she has not taken medication in multiple weeks and was prescribed by her primary care provider for breathing issues. 12. Expected acute blood loss anemia secondary to surgical procedure. Patient started on iron supplement. Recheck CBC in 1 week DVT prophylaxis Xarelto and GI prophylaxis Pepcid Patient is medical stable for discharge to [facility] Dr. Sweet to follow at [facility] I performed an examination of the patient and discussed their management with the physician Nailing Machine Feeder. I have reviewed the Physician Nailing Machine Feeder's notes and agree with the documented findings and plan of care
== END 2017-08-13 15:15 | DRG 470 ==
LOC: 2ORMAIN 09:14 → 3SUR 13:14
PROVIDERS: ADMIT Orthopaedic Surgery; ATTEND Orthopaedic Surgery
PROC: 30233N0 Transfusion of Autologous Red Blood Cells into Peripheral Vein, Percutaneous Approach (ICD-10-PCS; 2017-08-10)
PROC: 0SR906A Replacement of Right Hip Joint with Oxidized Zirconium on Polyethylene Synthetic Substitute, Uncemented, Open Approach (ICD-10-PCS; principal; 2017-08-10 11:30)
DX: M16.11 Unilateral primary osteoarthritis, right hip (principal); N17.9 Acute kidney failure, unspecified; D62 Acute posthemorrhagic anemia; J98.11 Atelectasis; I95.9 Hypotension, unspecified; M41.9 Scoliosis, unspecified; J43.9 Emphysema, unspecified; J45.909 Unspecified asthma, uncomplicated; E11.9 Type 2 diabetes mellitus without complications; I10 Essential (primary) hypertension; E78.5 Hyperlipidemia, unspecified; K21.9 Gastro-esophageal reflux disease without esophagitis; I34.1 Nonrheumatic mitral (valve) prolapse; F33.42 Major depressive disorder, recurrent, in full remission; E03.9 Hypothyroidism, unspecified; Z79.01 Long term (current) use of anticoagulants; Z79.84 Long term (current) use of oral hypoglycemic drugs; Z79.890 Hormone replacement therapy; Z79.51 Long term (current) use of inhaled steroids; Z79.52 Long term (current) use of systemic steroids; Z79.899 Other long term (current) drug therapy; Z90.49 Acquired absence of other specified parts of digestive tract; Z90.710 Acquired absence of both cervix and uterus; Z98.1 Arthrodesis status; Z86.718 Personal history of other venous thrombosis and embolism; Z87.891 Personal history of nicotine dependence; Z86.711 Personal history of pulmonary embolism; Z80.3 Family history of malignant neoplasm of breast; Z82.5 Family history of asthma and other chronic lower respiratory diseases
CPT/HCPCS: 71046; 73501; 80053; 85025; 86850; 86891; 86900; 86901; 88300; 94760

== ENCOUNTER → 2018-08-09 | Outpatient (CLI) | payer MEDICARE, BC ==
--- NOTE | 2018-08-09 13:15 | MR ---
EXAMINATION TYPE: MR knee RT wo con DATE OF EXAM: 08/09/2018 COMPARISON: None HISTORY: Pain TECHNIQUE: Multiplanar, multisequence imaging of the right knee is performed without IV contrast. FINDINGS: There is limitation exam due to artifact. Assessment of menisci is limited. There is significant narrowing of the medial compartment of the knee joint and patellofemoral joint i n a pattern compatible osteoarthritis. Hypertrophic spurring noted. There is abnormal signal in the p osterior horn of the medial meniscus compatible with a tear. Grossly the anterior cruciate and posterior cruciate ligaments are intact. The medial collateral and lateral collateral ligaments are intact. 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 There is a moderate-sized suprapatellar bursal fluid collection. Patellar and quadriceps tendons are intact. No obvious evidence of marrow edema or contusion. No acute fracture. There is a small amount of soft tissue edema diffusely no sizable popliteal fossa cyst. IMPRESSION: 1. Findings are compatible with osteoarthritis involving the tricompartment spaces. No erosive change s. 2. Degenerative complex tear posterior horn and body medial meniscus. 3. Chondromalacia involving the articular cartilage as discussed above. 4. No evidence of ligamentous tear.
== END | disposition home or self-care (01) ==
LOC: RADMRIMAIN 11:50
PROVIDERS: ATTEND Orthopaedic Surgery
DX: S83.232A Complex tear of medial meniscus, current injury, left knee, initial encounter (principal); M22.41 Chondromalacia patellae, right knee; M17.11 Unilateral primary osteoarthritis, right knee; M21.061 Valgus deformity, not elsewhere classified, right knee; M71.20 Synovial cyst of popliteal space [Baker], unspecified knee

== ENCOUNTER 2019-04-11 06:58 | Day surgery (SDC) | payer BC, MEDICARE ==
[2019-04-07 08:51] VITALS: BMI 44.4
[~2019-04-11 06:58] MED LIST changes: -ACETAMINOPHEN TAB 500 MG TAB PO ONE; -HYDROmorphone 0.5 MG/0.5 ML SYRINGE IVP PRN; +LACTATED RINGERS 1,000 ML IV SCH; +LIDOCAINE 1% (10MG/ML) FOR IV START INTRADERMA PRN; -LIDOCAINE 1% 20 ML VIAL (10MG/ML) FOR IV START INTRADERMA PRN; -MELOXICAM 7.5 MG TAB PO ONE; -ONDANSETRON 4 MG/2 ML VIAL IVP ONE; -TRANEXAMIC ACID 1,000 MG in SODIUM CHLORIDE 0.9% 50 ML IVPB ONE
[2019-04-11 07:16] VITALS: TEMP 97.9
[2019-04-11] MEDS ORDERED: LACTATED RINGERS 1,000 ML IV ONE ×2 (07:22)
[2019-04-11] MEDS ORDERED: PROPOFOL 10 MG/ML 20 ML VIAL IV ONE (07:40)
[2019-04-11] MEDS ORDERED: LIDOCAINE 1% INJ 10MG/ML (20 ML MDV) ONE (07:40)
--- NOTE | 2019-04-11 07:55 | P.GSHP ---
History of Present Illness H&P Date: 04/11/19 Chief Complaint: Diarrhea Is a 60-year-old female presents today for colonoscopy. Patient had issues with diarrhea. Past Medical History Past Medical History: Asthma, Diabetes Mellitus, Deep Vein Thrombosis (DVT), GERD/Reflux, Hyperlipidemia, Hypertension, Mitral Valve Prolapse (MVP), Osteoarthritis (OA), Pulmonary Embolus (PE), Thyroid Disorder Additional Past Medical History / Comment(s): scoliosis, HAS BEEN HAVING FREQUENT DIARRHEA. DVT/PE AFTER BACK SURGERY-2012 History of Any Multi-Drug Resistant Organisms: None Reported Past Surgical History: Back Surgery, Breast Surgery, Cholecystectomy, Heart Catheterization, Hernia Repair, Hysterectomy, Joint Replacement Additional Past Surgical History / Comment(s): spinal surgery with screws and metal plate, jennifer breast reduction, RT CHRISTIANO, COLONOSCOPY, BILAT CATARACTS REMOVED WITH LENS IMPLANTS Past Anesthesia/Blood Transfusion Reactions: No Reported Reaction Smoking Status: Former smoker - Past Family History Mother Family Medical History: Cancer, Pneumonia Additional Family Medical History / Comment(s): breast cancer Medications and Allergies Home Medications Medication Instructions Recorded Confirmed Type Ranitidine HCl 150 mg PO BID 06/23/13 04/07/19 History Simvastatin [Zocor] 40 mg PO HS 06/23/13 04/07/19 History Terbinafine [LamISIL] 250 mg PO BID 06/23/13 04/07/19 History buPROPion HCL [Wellbutrin XL] 300 mg PO DAILY 06/23/13 04/07/19 History rOPINIRole HCL [Requip] 0.25 mg PO HS 06/23/13 04/07/19 History Ascorbic Acid [Vitamin C] 500 mg PO DAILY 07/30/17 04/07/19 History Cholecalciferol [Vitamin D3 (25 1,000 unit PO DAILY 07/30/17 04/07/19 History Mcg = 1000 Iu)] DULoxetine HCL [Cymbalta] 60 mg PO DAILY 07/30/17 04/07/19 History Fluticasone/Umeclidin/Vilanter 1 puff INHALATION RT-DAILY 07/30/17 04/07/19 History [Trelegy Ellipta 100-62.5-25] Gabapentin [Neurontin] 300 mg PO DAILY PRN 07/30/17 04/07/19 History Levothyroxine Sodium [Synthroid] 25 mcg PO DAILY 07/30/17 04/07/19 History Mirabegron [Myrbetriq] 50 mg PO DAILY 07/30/17 04/07/19 History Multivitamins, Thera [Multivitamin 1 tab PO DAILY 07/30/17 04/07/19 History (formulary)] OLANZapine [ZyPREXA] 7.5 mg PO DAILY 07/30/17 04/07/19 History Vitamin E 1,000 unit PO DAILY 07/30/17 04/07/19 History ARIPiprazole [Abilify] 20 mg PO DAILY 08/10/17 04/07/19 History Losartan [Cozaar] 50 mg PO DAILY #0 08/13/17 04/07/19 Rx Rivaroxaban [Xarelto] 1 tab PO DAILY #30 tab 08/13/17 04/07/19 Rx Sennosides [Senokot] 1 tab PO BID #60 tablet 08/13/17 04/07/19 Rx Allergies Allergy/AdvReac Type Severity Reaction Status Date / Time No Known Allergies Allergy Verified 04/07/19 08:41 Surgical - Exam Vital Signs Temp Pulse Resp BP Pulse Ox 97.9 F 91 20 135/65 95 04/11/19 07:15 04/11/19 07:15 04/11/19 07:15 04/11/19 07:15 04/11/19 07:15 - General well developed, well nourished, no distress - Eyes PERRL - ENT normal pinna - Neck no masses - Respiratory normal expansion - Cardiovascular Rhythm: regular - Abdomen Abdomen: soft, non tender Assessment and Plan Assessment: Diarrhea. We'll perform colonoscopy.
[2019-04-11 08:26] VITALS: BP 123/77; PULSE 79; RESP 18
--- NOTE | 2019-04-11 09:55 | P.OP ---
Date of Procedure: 04/11/19 Preoperative Diagnosis: Diarrhea Postoperative Diagnosis: Normal appearing colon Biopsy pending Procedure(s) Performed: Colonoscopy Anesthesia: MAC Surgeon: Zain Clinton Pathology: other (Random cold biopsy) Condition: stable Disposition: PACU Description of Procedure: The patient's placed on the endoscopy table in the lateral position. She received IV sedation. Digital rectal exam was performed which revealed no abnormalities. The flexible colonoscope was then placed patient anus and passed throughout the entire colon. The ileocecal valve was visualized. The cecum ascending transverse, descending and sigmoid colon appeared normal. Random biopsies were taken of the right transverse left and rectum. There is known to any inflammatory changes or colitis. The scope was withdrawn for patient.
== END 2019-04-11 08:42 | disposition home or self-care (01) ==
LOC: ORWHC2ENDO 06:58
PROVIDERS: ATTEND Surgery
DX: R19.7 Diarrhea, unspecified (principal); I10 Essential (primary) hypertension; I34.1 Nonrheumatic mitral (valve) prolapse; E11.9 Type 2 diabetes mellitus without complications; K21.9 Gastro-esophageal reflux disease without esophagitis; E78.5 Hyperlipidemia, unspecified; M19.90 Unspecified osteoarthritis, unspecified site; F32.9 Major depressive disorder, single episode, unspecified; J44.9 Chronic obstructive pulmonary disease, unspecified; E07.9 Disorder of thyroid, unspecified; Z86.711 Personal history of pulmonary embolism; Z98.890 Other specified postprocedural states; Z90.49 Acquired absence of other specified parts of digestive tract; Z87.19 Personal history of other diseases of the digestive system; Z90.710 Acquired absence of both cervix and uterus; Z96.641 Presence of right artificial hip joint; Z98.41 Cataract extraction status, right eye; Z98.42 Cataract extraction status, left eye; Z86.718 Personal history of other venous thrombosis and embolism; Z96.1 Presence of intraocular lens; Z87.891 Personal history of nicotine dependence; Z80.3 Family history of malignant neoplasm of breast; Z83.6 Family history of other diseases of the respiratory system; Z79.899 Other long term (current) drug therapy; Z79.51 Long term (current) use of inhaled steroids; Z79.890 Hormone replacement therapy; Z79.01 Long term (current) use of anticoagulants; Z99.81 Dependence on supplemental oxygen
CPT/HCPCS: 88305; 45380; J2001; J2704

== ENCOUNTER 2021-06-03 15:37 | Inpatient (IN) | payer MEDICARE ==
[2021-06-03] MEDS ORDERED: ACETAMINOPHEN TAB 500 MG TAB PO STA (15:57)
[2021-06-03] MEDS ORDERED: IPRATROPIUM-ALBUTEROL 3 ML NEB INHALATION STA (15:57)
--- NOTE | 2021-06-03 15:57 | ED ---
General Adult HPI - General Chief complaint: Shortness of Breath Stated complaint: MANSOOR Time Seen by Provider: 06/03/21 15:40 Source: patient, EMS, RN notes reviewed Mode of arrival: EMS Limitations: no limitations - History of Present Illness Initial comments: Patient is a pleasant 70-year-old female presenting to the emergency department with difficulty breathing. Symptoms have progressed over the past couple of weeks. Patient does have cough. No fevers at home. Patient was recently diagnosed with cellulitis. Patient has chronic leg edema. Patient does have history of COPD. - Related Data Home Medications Medication Instructions Recorded Confirmed Ranitidine HCl 150 mg PO BID 06/23/13 04/07/19 Simvastatin [Zocor] 40 mg PO HS 06/23/13 04/07/19 Terbinafine [LamISIL] 250 mg PO BID 06/23/13 04/07/19 buPROPion HCL [Wellbutrin XL] 300 mg PO DAILY 06/23/13 04/07/19 rOPINIRole HCL [Requip] 0.25 mg PO HS 06/23/13 04/07/19 Ascorbic Acid [Vitamin C] 500 mg PO DAILY 07/30/17 04/07/19 Cholecalciferol [Vitamin D3 (25 1,000 unit PO DAILY 07/30/17 04/07/19 Mcg = 1000 Iu)] DULoxetine HCL [Cymbalta] 60 mg PO DAILY 07/30/17 04/07/19 Fluticasone/Umeclidin/Vilanter 1 puff INHALATION RT-DAILY 07/30/17 04/07/19 [Trelegy Ellipta 100-62.5-25] Gabapentin [Neurontin] 300 mg PO DAILY PRN 07/30/17 04/07/19 Levothyroxine Sodium [Synthroid] 25 mcg PO DAILY 07/30/17 04/07/19 Mirabegron [Myrbetriq] 50 mg PO DAILY 07/30/17 04/07/19 Multivitamins, Thera [Multivitamin 1 tab PO DAILY 07/30/17 04/07/19 (formulary)] OLANZapine [ZyPREXA] 7.5 mg PO DAILY 07/30/17 04/07/19 Vitamin E (Dl,Tocopheryl Acet) 1,000 unit PO DAILY 07/30/17 04/07/19 [Vitamin E] ARIPiprazole [Abilify] 20 mg PO DAILY 08/10/17 04/07/19 Previous Rx's Medication Instructions Recorded Losartan [Cozaar] 50 mg PO DAILY #0 08/13/17 Rivaroxaban [Xarelto] 1 tab PO DAILY #30 tab 08/13/17 Sennosides [Senokot] 1 tab PO BID #60 tablet 08/13/17 Allergies Allergy/AdvReac Type Severity Reaction Status Date / Time No Known Allergies Allergy Verified 06/03/21 17:41 Review of Systems ROS Statement: Those systems with pertinent positive or pertinent negative responses have been documented in the HPI. ROS Other: All systems not noted in ROS Statement are negative. Constitutional: Reports: as per HPI Eyes: Denies: eye pain ENT: Denies: ear pain Respiratory: Reports: as per HPI, cough, dyspnea Cardiovascular: Denies: chest pain Endocrine: Reports: fatigue Gastrointestinal: Denies: abdominal pain Genitourinary: Denies: dysuria Musculoskeletal: Denies: back pain Skin: Denies: rash Neurological: Denies: weakness Past Medical History Past Medical History: Asthma, Diabetes Mellitus, Deep Vein Thrombosis (DVT), GERD/Reflux, Hyperlipidemia, Hypertension, Mitral Valve Prolapse (MVP), Osteoarthritis (OA), Pulmonary Embolus (PE), Thyroid Disorder Additional Past Medical History / Comment(s): scoliosis, HAS BEEN HAVING FREQUENT DIARRHEA. DVT/PE AFTER BACK SURGERY-2012 History of Any Multi-Drug Resistant Organisms: None Reported Past Surgical History: Back Surgery, Breast Surgery, Cholecystectomy, Heart Catheterization, Hernia Repair, Hysterectomy, Joint Replacement Additional Past Surgical History / Comment(s): spinal surgery with screws and metal plate, jennifer breast reduction, RT CHRISTIANO, COLONOSCOPY, BILAT CATARACTS REMOVED WITH LENS IMPLANTS Past Anesthesia/Blood Transfusion Reactions: No Reported Reaction Past Psychological History: Bipolar, Depression Past Alcohol Use History: Rare Past Drug Use History: None Reported - Past Family History Mother Family Medical History: Cancer, Pneumonia Additional Family Medical History / Comment(s): breast cancer General Exam Limitations: no limitations General appearance: alert, in no apparent distress Head exam: Present: normocephalic Eye exam: Present: normal appearance Neck exam: Present: normal inspection. Absent: meningismus Respiratory exam: Present: wheezes Cardiovascular Exam: Present: regular rate, normal rhythm GI/Abdominal exam: Present: soft. Absent: tenderness Extremities exam: Present: pedal edema Neurological exam: Present: alert Psychiatric exam: Present: normal affect, normal mood Skin exam: Present: erythema (Right lower leg) Course Vital Signs 06/03/21 15:48 Temperature 101.4 F H Pulse Rate 60 Respiratory 35 H Rate Blood Pressure 127/60 O2 Sat by Pulse 93 L Oximetry - Reevaluation(s) Reevaluation #1: 06/03/21 17:45 There is concern for sepsis diagnosed at 1745. Blood culture and lactic acid and IV antibiotics will be ordered. EKG Findings - EKG Comments: EKG Findings:: Sinus rhythm with rate of 100. DC 177. QRS 97. QT 324. QTC 31. Normal axis. Low QRS voltage. No acute ST change. Medical Decision Making - Medical Decision Making Patient reevaluated and somewhat improved. Patient updated on results and plan. Dr. Mills has been paged for admission for Dr. Maddox. - Lab Data Result diagrams: 06/03/21 16:41 06/03/21 16:41 Lab Results 06/03/21 06/03/21 06/03/21 Range/Units 16:41 16:41 16:41 WBC 16.9 H (3.8-10.6) k/uL RBC 4.78 (3.80-5.40) m/uL Hgb 14.4 (11.4-16.0) gm/dL Hct 44.7 (34.0-46.0) % MCV 93.5 (80.0-100.0) fL MCH 30.2 (25.0-35.0) pg MCHC 32.3 (31.0-37.0) g/dL RDW 14.4 (11.5-15.5) % Plt Count 319 (150-450) k/uL MPV 7.7 Neutrophils % 92 % Lymphocytes % 2 % Monocytes % 4 % Eosinophils % 1 % Basophils % 0 % Neutrophils # 15.6 H (1.3-7.7) k/uL Lymphocytes # 0.3 L (1.0-4.8) k/uL Monocytes # 0.7 (0-1.0) k/uL Eosinophils # 0.1 (0-0.7) k/uL Basophils # 0.1 (0-0.2) k/uL PT 11.9 (9.0-12.0) sec INR 1.1 (<1.2) APTT 28.5 (22.0-30.0) sec Sodium 136 L (137-145) mmol/L Potassium 4.6 (3.5-5.1) mmol/L Chloride 101 (98-107) mmol/L Carbon Dioxide 26 (22-30) mmol/L Anion Gap 9 mmol/L BUN 24 H (7-17) mg/dL Creatinine 2.08 H (0.52-1.04) mg/dL Est GFR (CKD-EPI)AfAm 27 (>60 ml/min/1.73 sqM) Est GFR (CKD-EPI)NonAf 24 (>60 ml/min/1.73 sqM) Glucose 102 H (74-99) mg/dL Plasma Lactic Acid Wenceslao (0.7-2.0) mmol/L Calcium 9.2 (8.4-10.2) mg/dL Total Bilirubin 0.9 (0.2-1.3) mg/dL AST 19 (14-36) U/L ALT 12 (4-34) U/L Alkaline Phosphatase 125 (38-126) U/L Troponin I (0.000-0.034) ng/mL NT-Pro-B Natriuret Pep pg/mL Total Protein 7.2 (6.3-8.2) g/dL Albumin 4.1 (3.5-5.0) g/dL Coronavirus (PCR) (Not Detectd) 06/03/21 06/03/21 06/03/21 Range/Units 16:41 16:41 16:41 WBC (3.8-10.6) k/uL RBC (3.80-5.40) m/uL Hgb (11.4-16.0) gm/dL Hct (34.0-46.0) % MCV (80.0-100.0) fL MCH (25.0-35.0) pg MCHC (31.0-37.0) g/dL RDW (11.5-15.5) % Plt Count (150-450) k/uL MPV Neutrophils % % Lymphocytes % % Monocytes % % Eosinophils % % Basophils % % Neutrophils # (1.3-7.7) k/uL Lymphocytes # (1.0-4.8) k/uL Monocytes # (0-1.0) k/uL Eosinophils # (0-0.7) k/uL Basophils # (0-0.2) k/uL PT (9.0-12.0) sec INR (<1.2) APTT (22.0-30.0) sec Sodium (137-145) mmol/L Potassium (3.5-5.1) mmol/L Chloride (98-107) mmol/L Carbon Dioxide (22-30) mmol/L Anion Gap mmol/L BUN (7-17) mg/dL Creatinine (0.52-1.04) mg/dL Est GFR (CKD-EPI)AfAm (>60 ml/min/1.73 sqM) Est GFR (CKD-EPI)NonAf (>60 ml/min/1.73 sqM) Glucose (74-99) mg/dL Plasma Lactic Acid Wenceslao 1.4 (0.7-2.0) mmol/L Calcium (8.4-10.2) mg/dL Total Bilirubin (0.2-1.3) mg/dL AST (14-36) U/L ALT (4-34) U/L Alkaline Phosphatase (38-126) U/L Troponin I <0.012 (0.000-0.034) ng/mL NT-Pro-B Natriuret Pep 138 pg/mL Total Protein (6.3-8.2) g/dL Albumin (3.5-5.0) g/dL Coronavirus (PCR) (Not Detectd) 06/03/21 Range/Units 17:04 WBC (3.8-10.6) k/uL RBC (3.80-5.40) m/uL Hgb (11.4-16.0) gm/dL Hct (34.0-46.0) % MCV (80.0-100.0) fL MCH (25.0-35.0) pg MCHC (31.0-37.0) g/dL RDW (11.5-15.5) % Plt Count (150-450) k/uL MPV Neutrophils % % Lymphocytes % % Monocytes % % Eosinophils % % Basophils % % Neutrophils # (1.3-7.7) k/uL Lymphocytes # (1.0-4.8) k/uL Monocytes # (0-1.0) k/uL Eosinophils # (0-0.7) k/uL Basophils # (0-0.2) k/uL PT (9.0-12.0) sec INR (<1.2) APTT (22.0-30.0) sec Sodium (137-145) mmol/L Potassium (3.5-5.1) mmol/L Chloride (98-107) mmol/L Carbon Dioxide (22-30) mmol/L Anion Gap mmol/L BUN (7-17) mg/dL Creatinine (0.52-1.04) mg/dL Est GFR (CKD-EPI)AfAm (>60 ml/min/1.73 sqM) Est GFR (CKD-EPI)NonAf (>60 ml/min/1.73 sqM) Glucose (74-99) mg/dL Plasma Lactic Acid Wenceslao (0.7-2.0) mmol/L Calcium (8.4-10.2) mg/dL Total Bilirubin (0.2-1.3) mg/dL AST (14-36) U/L ALT (4-34) U/L Alkaline Phosphatase (38-126) U/L Troponin I (0.000-0.034) ng/mL NT-Pro-B Natriuret Pep pg/mL Total Protein (6.3-8.2) g/dL Albumin (3.5-5.0) g/dL Coronavirus (PCR) Not Detected (Not Detectd) - Radiology Data Radiology results: image reviewed (Chest x-ray shows no acute process) Critical Care Time Critical Care Time: Yes Total Critical Care Time: 32 Disposition Clinical Impression: Acute exacerbation of chronic obstructive pulmonary disease, Cellulitis, Sepsis Disposition: ADMITTED IP TO THIS HOSP Condition: Serious Is patient prescribed a controlled substance at d/c from ED?: No Referrals: Geneva Maddox DO [Primary Care Provider] - 1-2 days Time of Disposition: 17:45
[2021-06-03 16:48] LABS: Basophils # (A) 0.1 k/uL (0-0.2); Basophils % (A) 0 %; Eosinophils # (A) 0.1 k/uL (0-0.7); Eosinophils % (A) 1 %; HCT 44.7 % (34.0-46.0); HGB 14.4 gm/dL (11.4-16.0); Lymphocytes # (A) 0.3 k/uL (1.0-4.8); Lymphocytes % (A) 2 %; MCH 30.2 pg (25.0-35.0); MCHC 32.3 g/dL (31.0-37.0); MCV 93.5 fL (80.0-100.0); Mean Platelet Volume 7.7; Monocytes # (A) 0.7 k/uL (0-1.0); Monocytes % (A) 4 %; Neutrophils # (A) 15.6 k/uL (1.3-7.7); Neutrophils % (A) 92 %; Platelet Count 319 k/uL (150-450); RBC 4.78 m/uL (3.80-5.40); RDW 14.4 % (11.5-15.5); WBC 16.9 k/uL (3.8-10.6)
--- NOTE | 2021-06-03 16:54 | XR ---
EXAMINATION TYPE: XR chest 2V DATE OF EXAM: 06/03/2021 COMPARISON: 08/11/2017 HISTORY: Difficulty breathing TECHNIQUE: 2 view FINDINGS: There is no heart failure not confluent pneumonic infiltrate. Costophrenic angles are clear . There are chest leads. There are no hilar masses. IMPRESSION: No active cardiomegaly disease. No change.
[2021-06-03 16:59] LABS: INR 1.1 (<1.2); Partial Thromboplastin Time 28.5 sec (22.0-30.0); Prothrombin Time 11.9 sec (9.0-12.0)
[2021-06-03 17:07] LABS: Albumin 4.1 g/dL (3.5-5.0); Calcium 9.2 mg/dL (8.4-10.2); Potassium 4.6 mmol/L (3.5-5.1); Total Bilirubin 0.9 mg/dL (0.2-1.3); Total Protein 7.2 g/dL (6.3-8.2)
[2021-06-03] MEDS ORDERED: VANCOMYCIN IV PER PHARMACY 1 EACH MISC MISCELLANE PRN (17:47)
[2021-06-03] MEDS ORDERED: IPRATROPIUM-ALBUTEROL 3 ML NEB INHALATION PRN (17:48)
[2021-06-03] MEDS: methylPREDNISolone SOD SUCCI 125 MG/2 ML VIAL IV SCH ×2 (18:23→23:56)
[2021-06-03] MEDS ORDERED: VANCOMYCIN 2,500 MG in SODIUM CHLORIDE 0.9% 500 ML 500 ML IVPB ONE (19:00)
[2021-06-03] MEDS: IPRATROPIUM-ALBUTEROL 3 ML NEB INHALATION SCH (19:29)
[2021-06-04] MEDS ORDERED: GABAPENTIN 300 MG CAP PO PRN (06:16)
[2021-06-04] MEDS: methylPREDNISolone SOD SUCCI 125 MG/2 ML VIAL IV SCH ×3 (06:22→17:50)
[2021-06-04] MEDS: IPRATROPIUM-ALBUTEROL 3 ML NEB INHALATION SCH ×4 (07:12→23:29)
[2021-06-04 08:57] LABS: African American GFR (CKD) 27 (>60 ml/min/1.73 sqM); Anion Gap 8 mmol/L; Blood Urea Nitrogen 29 mg/dL (7-17); Calcium 8.8 mg/dL (8.4-10.2); Carbon Dioxide 27 mmol/L (22-30); Chloride 100 mmol/L (98-107); Glucose 173 mg/dL (74-99); Non-African American GFR(CKD) 24 (>60 ml/min/1.73 sqM); Potassium 4.5 mmol/L (3.5-5.1); Sodium 135 mmol/L (137-145)
[2021-06-04] MEDS: BREXPIPRAZOLE 3 MG PO SCH (10:46)
[2021-06-04] MEDS: LOSARTAN 50 MG TAB PO SCH (10:55)
[2021-06-04] MEDS: FAMOTIDINE 20 MG TAB PO SCH (10:55)
[2021-06-04] MEDS: hydroCHLOROthiazide 25 MG TAB PO SCH (10:56)
[2021-06-04] MEDS: buPROPion XL 300 MG TAB.ER.24H PO SCH (10:56)
[2021-06-04] MEDS: AMPICILLIN-SULBACTAM 3 GM in SODIUM CHLORIDE 0.9% 100 ML IVPB SCH ×2 (10:56→20:34)
[2021-06-04] MEDS: SPIRONOLACTONE 25 MG TAB PO SCH (10:56)
[2021-06-04] MEDS: PSYLLIUM HUSK 100% 6 GM PACKET PO SCH (11:13)
[2021-06-04] MEDS: RIVAROXABAN 20 MG TAB PO SCH (17:49)
[2021-06-04] MEDS: ATORVASTATIN 20 MG TAB PO SCH (20:33)
--- NOTE | 2021-06-04 22:42 | P.HPIM ---
History of Present Illness H&P Date: 06/04/21 Chief Complaint: malaise, shortness of breath Jorge Kelsey is a 70 yo F with PMH of COPD, chronic respiratory failure on home O2, bipolar disorder, CKD3, morbid obesity who presented to the ED complaining of increased weakness malaise and shortness of breath. She complains she has been treated for a wound on her leg by her PCP and was given antibiotics a few weeks ago but despite this it has remained red and draining. She feels things have worsened and she is now getting more swelling. She denies fever or chills. On presentation pt febrile, tachycardic and hypoxic. WBC 17k, Cr 2.08, trop negative. CXR no acute process. Pt started on IV steroids, vancomycin, rocephin. Review of Systems All systems: negative Constitutional: Reports fatigue, Reports fever, Reports malaise, Reports weakness, Denies chills Eyes: denies blurred vision, denies pain Ears, nose, mouth and throat: Denies headache, Denies sore throat Cardiovascular: Denies chest pain, Denies shortness of breath Respiratory: Reports dyspnea, Denies cough Gastrointestinal: Denies abdominal pain, Denies diarrhea, Denies nausea, Denies vomiting Genitourinary: Denies dysuria, Denies hematuria Musculoskeletal: Denies myalgias Integumentary: Denies pruritus, Denies rash Neurological: Denies numbness, Denies weakness Psychiatric: Denies anxiety, Denies depression Endocrine: Denies fatigue, Denies weight change Past Medical History Past Medical History: Asthma, COPD, Diabetes Mellitus, Deep Vein Thrombosis (DVT), GERD/Reflux, Hyperlipidemia, Hypertension, Mitral Valve Prolapse (MVP), Osteoarthritis (OA), Pneumonia, Pulmonary Embolus (PE), Thyroid Disorder Additional Past Medical History / Comment(s): Recent diagnosis of bilateral cellulitis, chronic bilateral leg edema, RLS, bilateral PEs/R leg DVT after back surgery, MVP, NIDDM diet controlled, chronic head tremors, gout, neuropathy bilateral feet, chronic low back pain. History of Any Multi-Drug Resistant Organisms: None Reported Past Surgical History: Back Surgery, Breast Surgery, Cholecystectomy, Heart Catheterization, Hernia Repair, Hysterectomy, Joint Replacement Additional Past Surgical History / Comment(s): spinal surgery with screws and metal plate, jennifer breast reduction, RT CHRISTIANO, COLONOSCOPY, BILAT CATARACTS REMOVED WITH LENS IMPLANTS, bladder suspension x2, hiatal hernia repair Past Anesthesia/Blood Transfusion Reactions: No Reported Reaction Smoking Status: Former smoker - Past Family History Mother Family Medical History: Cancer Additional Family Medical History / Comment(s): breast cancer Father Family Medical History: No Reported History Additional Family Medical History / Comment(s): Father was healthy Medications and Allergies Home Medications Medication Instructions Recorded Confirmed Type Simvastatin [Zocor] 40 mg PO HS 06/23/13 06/03/21 History buPROPion HCL [Wellbutrin XL] 300 mg PO DAILY 06/23/13 06/03/21 History Ascorbic Acid [Vitamin C] 500 mg PO DAILY 07/30/17 06/03/21 History Mirabegron [Myrbetriq] 50 mg PO DAILY 07/30/17 06/03/21 History Multivitamins, Thera [Multivitamin 1 tab PO DAILY 07/30/17 06/03/21 History (formulary)] ARIPiprazole [Abilify] 20 mg PO DAILY 08/10/17 06/03/21 History Losartan [Cozaar] 50 mg PO DAILY #0 08/13/17 06/03/21 Rx Brexpiprazole [Rexulti] 3 mg PO DAILY 06/03/21 06/03/21 History Cholecalciferol [Vitamin D3 (25 25 mcg PO DAILY 06/03/21 06/03/21 History Mcg = 1000 Iu)] DULoxetine HCL [Cymbalta] 60 mg PO DAILY 06/03/21 06/03/21 History Famotidine 40 mg PO DAILY 06/03/21 06/03/21 History Gabapentin 600 mg PO BID PRN 06/03/21 06/03/21 History Rivaroxaban [Xarelto] 20 mg PO W/SUPPER 06/03/21 06/03/21 History SILVER sulfADIAZINE CREAM 1 applic TOPICAL BID 06/03/21 06/03/21 History [Silvadene Cream] Semaglutide [Ozempic] 0.5 mg SQ MO 06/03/21 06/03/21 History Spironolactone 50 mg PO DAILY 06/03/21 06/03/21 History Tolterodine Tartrate [Tolterodine 4 mg PO DAILY 06/03/21 06/03/21 History Tartrate ER] Umeclidinium Brm/Vilanterol Tr 1 puff INHALATION RT-BID 06/03/21 06/03/21 History [Anoro Ellipta 62.5-25 Mcg INH] Vitamin E [Vitamin E (1000 Iu = 1,000 unit PO DAILY 06/03/21 06/03/21 History 450 MG)] hydroCHLOROthiazide 25 mg PO DAILY 06/03/21 06/03/21 History metOLazone [Zaroxolyn] 2.5 mg PO MOFR 06/03/21 06/03/21 History Allergies Allergy/AdvReac Type Severity Reaction Status Date / Time No Known Allergies Allergy Verified 06/03/21 17:41 Physical Exam Vitals: Vital Signs Temp Pulse Pulse Resp BP BP Pulse Ox 06/04/21 20:25 98.4 F 82 20 120/67 94 L 06/04/21 16:56 98.6 F 87 19 107/66 93 L 06/04/21 15:32 79 06/04/21 15:22 76 06/04/21 13:48 98.0 F 86 16 100/64 93 L 06/04/21 11:18 75 06/04/21 11:10 76 06/04/21 08:00 98.4 F 86 16 146/78 93 L 06/04/21 07:28 75 06/04/21 07:12 72 06/04/21 06:00 97.5 F L 86 19 109/79 93 L Intake and Output 06/04/21 06/04/21 06/04/21 06:59 14:59 22:59 Intake Total 0 Balance 0 Intake: Oral 0 Other: Voiding Method Bedside Commode Bedside Commode # Voids 1 # Bowel Movements 2 Weight 145.15 kg General: well nourished, well developed, morbidly obese, in mild distress. Vitals reviewed Eyes: PERRL, EOMI, conjunctiva normal HENT: normocephalic, mucus membranes moist Neck: supple, no JVD Lungs: increased respiratory effort, no wheezes or rales CV: Regular rate and rhythm, no murmur. Peripheral pulses 2+ Abdomen: soft, nondistended, no organomegaly Lymph: no cervical or axillary LAD Skin: lower extremity edema 1+, erythema, open wounds with minimal serous drainage Neuro: A&Ox3, normal mood and affect Results CBC & Chem 7: 06/03/21 16:41 06/04/21 07:52 Labs: Abnormal Lab Results - Last 24 Hours (Table) 06/04/21 Range/Units 07:52 Sodium 135 L (137-145) mmol/L BUN 29 H (7-17) mg/dL Creatinine 2.09 H (0.52-1.04) mg/dL Glucose 173 H (74-99) mg/dL Microbiology - Last 24 Hours (Table) 06/03/21 17:30 Blood Culture - Preliminary Blood No Growth after 24 hours Thrombosis Risk Factor Assmnt - Choose All That Apply Any of the Below Risk Factors Present?: Yes Each Factor Represents 1 point: Abnormal pulmonary function (COPD), Sepsis (< 1month), Swollen legs (current) Each Risk Factor Represents 2 Points: Age 61-74 years Each Risk Factor Represents 3 Points: History of DVT/PE Other congenital or acquired thrombophilia - If yes, enter type in comment: No Thrombosis Risk Factor Assessment Total Risk Factor Score: 8 Thrombosis Risk Factor Assessment Level: High Risk Assessment and Plan Plan: 1. Severe sepsis. secondary to cellulitis of both lower extremities. Continue with vancomycin, unasyn. ID consult. Follow blood cultures 2. Acute on chronic hypoxic respiratory failure. COPD. Continue with duonebs; pt given solumedrol 3. Bipolar disorder. Continue home medications 4. Hx DVT. Continue lovenox 5. Chronic diastolic CHF. Continue HCTZ, aldactone. Hold metolazone 6. CKD. HTN. Continue losartan
[2021-06-05] MEDS: AMPICILLIN-SULBACTAM 3 GM in SODIUM CHLORIDE 0.9% 100 ML IVPB SCH ×3 (00:53→17:06)
--- NOTE | 2021-06-05 00:57 | P.CONS ---
History of Present Illness - Reason for Consult Consult date: 06/04/21 Cellulitis, antibiotic treatment Requesting physician: Mae Maya - Chief Complaint Lower extremity swelling and redness x few days - History of Present Illness Patient is a 70-year-old female with multiple comorbidities in this patient did have a chronic swelling to bilateral lower extremity that apparently seem to be getting worse for the last few days without any history of any trauma patient has been present to the hospital for evaluation of increasing shortness of breath apparently getting worse for the last few days patient denies having any chest pain no significant cough or sputum production no nausea vomiting no abdominal pain no diarrhea she recommended of some pain to bilateral extremities patient left leg with did have some diffuse swelling redness and wound to the left lateral leg but no drainage, with the symptom the patient has been evaluated by ER physician on arrival to the ER the patient did have fever of 101.4 degrees formulae patient was mildly hypoxic with need for supplemental oxygen. Have elevated white count with a left shift BUN and creatinine was mildly elevated liver enzymes are normal sesay PCR was negative blood cultures been currently pending chest x-ray no active cardiopulmonary disease patient was started on Unasyn has been admitted to the hospital infectious disease was consulted for further management of antibiotic therapy Review of Systems Positive point has been mentioned in the HPI rest of the systems are negative Past Medical History Past Medical History: Asthma, COPD, Diabetes Mellitus, Deep Vein Thrombosis (DVT), GERD/Reflux, Hyperlipidemia, Hypertension, Mitral Valve Prolapse (MVP), Osteoarthritis (OA), Pneumonia, Pulmonary Embolus (PE), Thyroid Disorder Additional Past Medical History / Comment(s): Recent diagnosis of bilateral cellulitis, chronic bilateral leg edema, RLS, bilateral PEs/R leg DVT after back surgery, MVP, NIDDM diet controlled, chronic head tremors, gout, neuropathy bilateral feet, chronic low back pain. History of Any Multi-Drug Resistant Organisms: None Reported Past Surgical History: Back Surgery, Breast Surgery, Cholecystectomy, Heart Catheterization, Hernia Repair, Hysterectomy, Joint Replacement Additional Past Surgical History / Comment(s): spinal surgery with screws and metal plate, jennifer breast reduction, RT CHRISTIANO, COLONOSCOPY, BILAT CATARACTS REMOVED WITH LENS IMPLANTS, bladder suspension x2, hiatal hernia repair Past Anesthesia/Blood Transfusion Reactions: No Reported Reaction Smoking Status: Former smoker - Past Family History Mother Family Medical History: Cancer Additional Family Medical History / Comment(s): breast cancer Father Family Medical History: No Reported History Additional Family Medical History / Comment(s): Father was healthy Medications and Allergies Home Medications Medication Instructions Recorded Confirmed Type Simvastatin [Zocor] 40 mg PO HS 06/23/13 06/03/21 History buPROPion HCL [Wellbutrin XL] 300 mg PO DAILY 06/23/13 06/03/21 History Ascorbic Acid [Vitamin C] 500 mg PO DAILY 07/30/17 06/03/21 History Mirabegron [Myrbetriq] 50 mg PO DAILY 07/30/17 06/03/21 History Multivitamins, Thera [Multivitamin 1 tab PO DAILY 07/30/17 06/03/21 History (formulary)] ARIPiprazole [Abilify] 20 mg PO DAILY 08/10/17 06/03/21 History Losartan [Cozaar] 50 mg PO DAILY #0 08/13/17 06/03/21 Rx Brexpiprazole [Rexulti] 3 mg PO DAILY 06/03/21 06/03/21 History Cholecalciferol [Vitamin D3 (25 25 mcg PO DAILY 06/03/21 06/03/21 History Mcg = 1000 Iu)] DULoxetine HCL [Cymbalta] 60 mg PO DAILY 06/03/21 06/03/21 History Famotidine 40 mg PO DAILY 06/03/21 06/03/21 History Gabapentin 600 mg PO BID PRN 06/03/21 06/03/21 History Rivaroxaban [Xarelto] 20 mg PO W/SUPPER 06/03/21 06/03/21 History SILVER sulfADIAZINE CREAM 1 applic TOPICAL BID 06/03/21 06/03/21 History [Silvadene Cream] Semaglutide [Ozempic] 0.5 mg SQ MO 06/03/21 06/03/21 History Spironolactone 50 mg PO DAILY 06/03/21 06/03/21 History Tolterodine Tartrate [Tolterodine 4 mg PO DAILY 06/03/21 06/03/21 History Tartrate ER] Umeclidinium Brm/Vilanterol Tr 1 puff INHALATION RT-BID 06/03/21 06/03/21 History [Anoro Ellipta 62.5-25 Mcg INH] Vitamin E [Vitamin E (1000 Iu = 1,000 unit PO DAILY 06/03/21 06/03/21 History 450 MG)] hydroCHLOROthiazide 25 mg PO DAILY 06/03/21 06/03/21 History metOLazone [Zaroxolyn] 2.5 mg PO MOFR 06/03/21 06/03/21 History Allergies Allergy/AdvReac Type Severity Reaction Status Date / Time No Known Allergies Allergy Verified 06/03/21 17:41 Physical Exam Vitals: Vital Signs Temp Pulse Pulse Resp BP BP Pulse Ox 06/04/21 13:48 98.0 F 86 16 100/64 93 L 06/04/21 11:18 75 06/04/21 11:10 76 06/04/21 08:00 98.4 F 86 16 146/78 93 L 06/04/21 07:28 75 06/04/21 07:12 72 06/04/21 06:00 97.5 F L 86 19 109/79 93 L 06/03/21 22:00 100.4 F H 90 18 150/75 94 L 06/03/21 21:02 92 22 110/69 92 L 06/03/21 20:24 108 H 06/03/21 19:24 100.3 F H 06/03/21 19:06 104 H 24 148/76 94 L 06/03/21 18:17 106 H 24 108/70 06/03/21 17:58 102 H 06/03/21 17:49 100 06/03/21 15:48 101.4 F H 60 35 H 127/60 93 L Intake and Output 06/03/21 06/04/21 06/04/21 22:59 06:59 14:59 Intake Total 0 Balance 0 Intake: Oral 0 Other: Voiding Method Bedside Commode # Bowel Movements 2 2 Weight 145.15 kg 145.15 kg GENERAL DESCRIPTION: An elderly female lying in bed, no distress. No tachypnea or accessory muscle of respiration use. HEENT: Shows Pallor , no scleral icterus. Oral mucous membrane is dry. No pharyngeal erythema or thrush NECK: Trachea central, no thyromegaly. LUNGS: Unlabored breathing. Clear to auscultation anteriorly. No wheeze or crackle. HEART: S1, S2, regular rate and rhythm. No loud murmur ABDOMEN: Soft, no tenderness , guarding or rigidity, no organomegaly EXTREMITIES: Diffuse swelling to bilateral lower extremity with some erythema superficial ulceration to the left lower leg with no slough tissue or any foul- smelling drainage SKIN: No rash, no masses palpable. NEUROLOGICAL: The patient is awake, alert, oriented x3, mood and affect normal. Results CBC & Chem 7: 06/03/21 16:41 06/04/21 07:52 Labs: Abnormal Lab Results - Last 24 Hours (Table) 06/03/21 06/03/21 06/04/21 Range/Units 16:41 16:41 07:52 WBC 16.9 H (3.8-10.6) k/uL Neutrophils # 15.6 H (1.3-7.7) k/uL Lymphocytes # 0.3 L (1.0-4.8) k/uL Sodium 136 L 135 L (137-145) mmol/L BUN 24 H 29 H (7-17) mg/dL Creatinine 2.08 H 2.09 H (0.52-1.04) mg/dL Glucose 102 H 173 H (74-99) mg/dL Assessment and Plan (1) Cellulitis Current Visit: Yes Status: Acute Code(s): L03.90 - CELLULITIS, UNSPECIFIED SNOMED Code(s): 518664937 (2) Sepsis Current Visit: Yes Status: Acute Code(s): A41.9 - SEPSIS, UNSPECIFIED ORGANISM SNOMED Code(s): 26799098 Plan: 1patient presented to hospital with sepsis in this patient did have fever elevated white count source likely bilateral lower extremity cellulitis left greater than the right and likely from gram-positive skin florecita. 2patient with elevated creatinine hydronephrosis from vancomycin. 3local wound care to be left lower extremity with Aquacel silver to the open wound moisturizing cream to the dry scaly skin to the leg followed by Alfonso wrap from just above the toe to below the knee. 4local wound care to the right leg wound with moisturizing cream to the skin and Alfonso wrap from distal lateral to below the knee. 5Unasyn 3 g every 8 hours We will follow on clinical condition and cultures to further adjust medication if needed Thank you for this consultation will follow this patient along with you
[2021-06-05] MEDS ORDERED: VANCOMYCIN 2,500 MG in SODIUM CHLORIDE 0.9% 500 ML 500 ML IVPB SCH (06:00)
[2021-06-05] MEDS: IPRATROPIUM-ALBUTEROL 3 ML NEB INHALATION SCH ×4 (07:15→19:50)
[2021-06-05 08:12] LABS: African American GFR (CKD) 32 (>60 ml/min/1.73 sqM); Anion Gap 10 mmol/L; Blood Urea Nitrogen 36 mg/dL (7-17); Calcium 8.9 mg/dL (8.4-10.2); Carbon Dioxide 25 mmol/L (22-30); Chloride 102 mmol/L (98-107); Glucose 159 mg/dL (74-99); Non-African American GFR(CKD) 28 (>60 ml/min/1.73 sqM); Potassium 4.4 mmol/L (3.5-5.1); Sodium 137 mmol/L (137-145)
[2021-06-05] MEDS: hydroCHLOROthiazide 25 MG TAB PO SCH (09:13)
[2021-06-05] MEDS: FAMOTIDINE 20 MG TAB PO SCH (09:13)
[2021-06-05] MEDS: SPIRONOLACTONE 25 MG TAB PO SCH (09:13)
[2021-06-05] MEDS: LOSARTAN 50 MG TAB PO SCH (09:13)
[2021-06-05] MEDS: PSYLLIUM HUSK 100% 6 GM PACKET PO SCH (09:14)
[2021-06-05] MEDS: buPROPion XL 300 MG TAB.ER.24H PO SCH (09:14)
[2021-06-05] MEDS: BREXPIPRAZOLE 3 MG PO SCH (09:43)
--- NOTE | 2021-06-05 12:01 | P.PN ---
Subjective Progress Note Date: 06/05/21 Jorge Kelsey is a 70 yo F with PMH of COPD, chronic respiratory failure on home O2, bipolar disorder, CKD3, morbid obesity who presented to the ED complaining of increased weakness malaise and shortness of breath. She complains she has been treated for a wound on her leg by her PCP and was given antibiotics a few weeks ago but despite this it has remained red and draining. She feels things have worsened and she is now getting more swelling. She denies fever or chills. On presentation pt febrile, tachycardic and hypoxic. WBC 17k, Cr 2.08, trop negative. CXR no acute process. Pt started on IV steroids, vancomycin, rocephin. 06/05/2021 Maintaining O2 sats in the 90s on 4 L nasal cannula. Maintained on IV antibiotics of Unasyn, Afebrile, preliminary blood cultures reporting no crackles after 24 hours. BUN 36, creatinine 1.81. Denies increased shortness of breath. Denies chest pain, palpitations. Denies pain in legs. Objective - Vital Signs Vital signs: Vital Signs Temp 97.9 F 06/05/21 05:00 Pulse 72 06/05/21 11:19 Resp 16 06/05/21 08:40 BP 130/70 06/05/21 09:43 Pulse Ox 92 L 06/05/21 05:00 Intake & Output 06/04/21 06/05/21 06/05/21 18:59 06:59 18:59 Intake Total 1270 Balance 1270 Weight 145.15 kg Intake: Intake, IV Titration 200 Amount Ampicillin-Sulbactam 3 gm 200 In Sodium Chloride 0.9% 100 ml @ 200 mls/hr IVPB Q8HR [facility] Rx#:[id number] Oral 1070 Other: Voiding Method Bedside Commode Bedside Commode Bedside Commode # Voids 1 1 2 # Bowel Movements 1 - Exam General: morbidly obese, alert and oriented 3, sitting up in chair, NAD Eyes: PERRL, EOMI, conjunctiva normal HENT: normocephalic, mucus membranes moist Neck: supple, no JVD Lungs: unlabored,CTA, no wheezes or rales CV: Regular rate and rhythm, no murmur. Peripheral pulses 2+ Abdomen: soft, nondistended, no organomegaly Skin: lower extremity edema, bilateral lower extremity Alfonso wrap dressings clean dry and intact Neuro: A&Ox3, normal mood and affect - Labs CBC & Chem 7: 06/03/21 16:41 06/05/21 07:10 Labs: Abnormal Lab Results - Last 24 Hours (Table) 06/05/21 Range/Units 07:10 BUN 36 H (7-17) mg/dL Creatinine 1.81 H (0.52-1.04) mg/dL Glucose 159 H (74-99) mg/dL Microbiology - Last 24 Hours (Table) 06/03/21 16:30 Blood Culture - Preliminary Blood No Growth after 24 hours 06/03/21 17:30 Blood Culture - Preliminary Blood No Growth after 24 hours Assessment and Plan Assessment: Severe sepsis secondary to bilateral lower extremity cellulitis Acute on chronic hypoxic respiratory failure secondary to the above. Wears 4l nasal cannula at home, qhs. DMII COPD-chronic Bipolar disorder Chronic diastolic CHF History of DVT CKD HTN Plan: Continue on current medication regime ,monitoring and symptomatic t reatment.Steroids discontinued, secondary to increased shakiness and clinically not presenting as acute COPD exacerbation. Antibiotics/wound care as per ID. The impression and plan of care has been dictated as directed. .: I performed a history and examination of this patient, discussed the same with the dictator. I agree with the dictator's note ,documented as a scribe. Any additional findings or plans will be noted.
[2021-06-05] MEDS ORDERED: PANTOPRAZOLE 40 MG/10 ML VIAL IVP SCH (12:15)
[2021-06-05 12:35] LABS: Glucose,Whole Blood 129 mg/dL (75-99)
[2021-06-05] MEDS: INSULIN ASPART (NovoLOG) 100 UNIT/ML VIAL SQ SCH ×3 (12:56→20:31)
[2021-06-05] MEDS: ACETAMINOPHEN TAB 325 MG TAB PO PRN ×2 (15:14→21:13)
[2021-06-05] MEDS: RIVAROXABAN 20 MG TAB PO SCH (17:59)
[2021-06-05 20:29] LABS: Glucose,Whole Blood 180 mg/dL (75-99)
[2021-06-05] MEDS: ATORVASTATIN 20 MG TAB PO SCH (20:32)
[2021-06-05] MEDS: GABAPENTIN 300 MG CAP PO PRN (21:15)
--- NOTE | 2021-06-05 22:12 | P.PN ---
Subjective Progress Note Date: 06/05/21 Principal diagnosis: Bilateral lower extremity cellulitis Patient is a 71-year-old female presented to hospital with weakness did have significant swelling to both lower extremity and some superficial ulceration to the left leg concerning for cellulitis. On today's evaluation that is 06/05/2021, the patient denies having any fever or chills, the patient is breathing comfortably, the patient denies having any chest pain or shortness with a cough no abdominal pain overall discomfort to the bilateral lower extremity has decreased Objective - Vital Signs Vital signs: Vital Signs Temp 97.6 F 06/05/21 12:43 Pulse 82 06/05/21 12:43 Resp 20 06/05/21 12:43 BP 130/70 06/05/21 09:43 Pulse Ox 99 06/05/21 12:43 Intake & Output 06/04/21 06/05/21 06/05/21 18:59 06:59 18:59 Intake Total 1270 Balance 1270 Weight 145.15 kg Intake: Intake, IV Titration 200 Amount Ampicillin-Sulbactam 3 gm 200 In Sodium Chloride 0.9% 100 ml @ 200 mls/hr IVPB Q8HR [facility] Rx#:[id number] Oral 1070 Other: Voiding Method Bedside Commode Bedside Commode Bedside Commode # Voids 1 1 2 # Bowel Movements 1 - Exam GENERAL DESCRIPTION: An elderly female lying in bed in no distress RESPIRATORY SYSTEM: Unlabored breathing , decreased breath sounds at bases HEART: S1 S2 regular rate and rhythm , ABDOMEN: Soft , no tenderness EXTREMITIES: Bilateral legs are currently wrapped no drainage on the dressing - Labs CBC & Chem 7: 06/03/21 16:41 06/05/21 07:10 Labs: Abnormal Lab Results - Last 24 Hours (Table) 06/05/21 06/05/21 Range/Units 07:10 12:20 BUN 36 H (7-17) mg/dL Creatinine 1.81 H (0.52-1.04) mg/dL Glucose 159 H (74-99) mg/dL POC Glucose (mg/dL) 129 H (75-99) mg/dL Microbiology - Last 24 Hours (Table) 06/03/21 16:30 Blood Culture - Preliminary Blood No Growth after 24 hours 06/03/21 17:30 Blood Culture - Preliminary Blood No Growth after 24 hours Assessment and Plan (1) Cellulitis Current Visit: Yes Status: Acute Code(s): L03.90 - CELLULITIS, UNSPECIFIED SNOMED Code(s): 375987491 (2) Sepsis Current Visit: Yes Status: Acute Code(s): A41.9 - SEPSIS, UNSPECIFIED ORGANISM SNOMED Code(s): 49221724 Plan: 1patient presented to hospital with sepsis in this patient did have fever elevated white count source likely bilateral lower extremity cellulitis left greater than the right and likely from gram-positive skin florecita. 2patient with elevated creatinine high risk of nephrotoxicity from vancomycin. 3local wound care to be left lower extremity with Aquacel silver to the open wound moisturizing cream to the dry scaly skin to the leg followed by Alfonso wrap from just above the toe to below the knee. 4local wound care to the right leg wound with moisturizing cream to the skin and Alfonso wrap from distal lateral to below the knee. 5patient to continue with Unasyn 3 g every 8 hours, hopefully finishing therapy with oral antibiotics Time with Patient: Less than 30
[2021-06-06] MEDS: AMPICILLIN-SULBACTAM 3 GM in SODIUM CHLORIDE 0.9% 100 ML IVPB SCH ×4 (00:29→23:59)
[2021-06-06 06:42] LABS: African American GFR (CKD) 30 (>60 ml/min/1.73 sqM); Anion Gap 3 mmol/L; Blood Urea Nitrogen 38 mg/dL (7-17); Calcium 8.7 mg/dL (8.4-10.2); Carbon Dioxide 31 mmol/L (22-30); Chloride 102 mmol/L (98-107); Glucose 104 mg/dL (74-99); Non-African American GFR(CKD) 26 (>60 ml/min/1.73 sqM); Potassium 4.3 mmol/L (3.5-5.1); Sodium 136 mmol/L (137-145)
[2021-06-06 07:11] LABS: Glucose,Whole Blood 83 mg/dL (75-99)
[2021-06-06] MEDS: INSULIN ASPART (NovoLOG) 100 UNIT/ML VIAL SQ SCH ×4 (07:47→21:04)
[2021-06-06] MEDS: IPRATROPIUM-ALBUTEROL 3 ML NEB INHALATION SCH ×4 (08:14→20:07)
[2021-06-06] MEDS: LOSARTAN 50 MG TAB PO SCH (08:28)
[2021-06-06] MEDS: hydroCHLOROthiazide 25 MG TAB PO SCH (08:29)
[2021-06-06] MEDS: buPROPion XL 300 MG TAB.ER.24H PO SCH (08:29)
[2021-06-06] MEDS: FAMOTIDINE 20 MG TAB PO SCH (08:29)
[2021-06-06] MEDS: SPIRONOLACTONE 25 MG TAB PO SCH (08:29)
[2021-06-06] MEDS: PSYLLIUM HUSK 100% 6 GM PACKET PO SCH (09:17)
[2021-06-06] MEDS: BREXPIPRAZOLE 3 MG PO SCH (09:19)
[2021-06-06 09:30] LABS: Basophils # (A) 0.02 X 10*3/uL (0.00-0.10); Basophils % (A) 0.2 %; Eosinophils # (A) 0.06 X 10*3/uL (0.04-0.35); Eosinophils % (A) 0.5 %; HCT 38.3 % (37.2-46.3); HGB 11.4 g/dL (12.0-15.0); Immature Grans, Automated 0.6 %; Lymphocytes # (A) 1.11 X 10*3/uL (0.90-5.00); Lymphocytes % (A) 8.5 %; MCH 28.5 pg (27.0-32.0); MCHC 29.8 g/dL (32.0-37.0); MCV 95.8 fL (80.0-97.0); Mean Platelet Volume 10.6 fL (9.5-12.2); Monocytes # (A) 1.39 X 10*3/uL (0.20-1.00); Monocytes % (A) 10.6 %; NRBC Per 100 WBC 0 /100 WBCS (0.0-0.0); Neutrophils # (A) 10.44 X 10*3/uL (1.80-7.70); Neutrophils % (A) 79.6 %; Platelet Count 273 X 10*3/uL (140-440); RDW 14.6 % (11.5-14.5)
[2021-06-06 11:50] LABS: Glucose,Whole Blood 88 mg/dL (75-99)
--- NOTE | 2021-06-06 13:54 | P.PN ---
Subjective Progress Note Date: 06/06/21 Jorge Kelsey is a 70 yo F with PMH of COPD, chronic respiratory failure on home O2, bipolar disorder, CKD3, morbid obesity who presented to the ED complaining of increased weakness malaise and shortness of breath. She complains she has been treated for a wound on her leg by her PCP and was given antibiotics a few weeks ago but despite this it has remained red and draining. She feels things have worsened and she is now getting more swelling. She denies fever or chills. On presentation pt febrile, tachycardic and hypoxic. WBC 17k, Cr 2.08, trop negative. CXR no acute process. Pt started on IV steroids, vancomycin, rocephin. 06/05/2021 Maintaining O2 sats in the 90s on 4 L nasal cannula. Maintained on IV antibiotics of Unasyn, Afebrile, preliminary blood cultures reporting no crackles after 24 hours. BUN 36, creatinine 1.81. Denies increased shortness of breath. Denies chest pain, palpitations. Denies pain in legs. 06/06/2021 sitting up in chair, feeling better today. Breathing improving, oxygen requirements decreased, maintaining O2 sats in the 90s on 3 L nasal cannula. Steroids have been discontinued with significant improvement in shakiness. Maintained on Unasyn. Denies chest pain, palpitations or increased shortness of breath. Denies leg pain. BUN 38, creatinine 1.9. WBC trending down. C. difficile ruled out. Objective - Vital Signs Vital signs: Vital Signs Temp 98.2 F 06/06/21 11:49 Pulse 79 06/06/21 12:07 Resp 18 06/06/21 11:49 BP 102/67 06/06/21 11:49 Pulse Ox 98 06/06/21 11:49 Intake & Output 06/05/21 06/06/21 06/06/21 18:59 06:59 18:59 Intake Total 360 340 Balance 360 340 Intake: Intake, IV Titration 100 Amount Ampicillin-Sulbactam 3 gm 100 In Sodium Chloride 0.9% 100 ml @ 200 mls/hr IVPB Q8HR [facility] Rx#:[id number] Oral 360 240 Other: Voiding Method Bedside Commode Bedside Commode Bedside Commode # Voids 4 1 # Bowel Movements 1 2 - Exam General: morbidly obese, alert and oriented 3, sitting up in chair, NAD Eyes: PERRL, EOMI, conjunctiva normal HENT: normocephalic, mucus membranes moist Neck: supple, no JVD Lungs: unlabored,CTA, no wheezes or rales CV: Regular rate and rhythm, no murmur. Peripheral pulses 2+ Abdomen: soft, nondistended, no organomegaly Skin: Decreasing lower extremity edema, bilateral lower extremity Alfonso wrap dressings clean dry and intact Neuro: A&Ox3, normal mood and affect - Labs CBC & Chem 7: 06/06/21 05:34 06/06/21 05:34 Labs: Abnormal Lab Results - Last 24 Hours (Table) 06/05/21 06/06/21 06/06/21 Range/Units 20:28 05:34 05:34 WBC 13.10 H (4.50-10.00) X 10*3/uL RBC 4.00 L (4.10-5.20) X 10*6/uL Hgb 11.4 L (12.0-15.0) g/dL MCHC 29.8 L (32.0-37.0) g/dL RDW 14.6 H (11.5-14.5) % Immature Gran # 0.08 H (0.00-0.04) X 10*3/uL Neutrophils # 10.44 H (1.80-7.70) X 10*3/uL Monocytes # 1.39 H (0.20-1.00) X 10*3/uL Sodium 136 L (137-145) mmol/L Carbon Dioxide 31 H (22-30) mmol/L BUN 38 H (7-17) mg/dL Creatinine 1.91 H (0.52-1.04) mg/dL Glucose 104 H (74-99) mg/dL POC Glucose (mg/dL) 180 H (75-99) mg/dL Microbiology - Last 24 Hours (Table) 06/03/21 16:30 Blood Culture - Preliminary Blood No Growth after 48 hours 06/03/21 17:30 Blood Culture - Preliminary Blood No Growth after 48 hours Assessment and Plan Assessment: Severe sepsis secondary to bilateral lower extremity cellulitis Acute on chronic hypoxic respiratory failure secondary to the above. Wears 4l nasal cannula at home, qhs. DMII COPD-chronic Bipolar disorder Chronic diastolic CHF History of DVT CKD HTN Plan: Continue on current medication regime ,monitoring and symptomatic treatment.Antibiotics/wound care as per ID. increase activity as tolerated. The impression and plan of care has been dictated as directed. : I performed a history and examination of this patient, discussed the same with the dictator. I agree with the dictator's note ,documented as a scribe. Any additional findings or plans will be noted.
[2021-06-06] MEDS: MINERAL OIL-WHITE PETROLATUM CREAM 454 GM JAR TOPICAL SCH (14:47)
[2021-06-06] MEDS: RIVAROXABAN 20 MG TAB PO SCH (15:50)
--- NOTE | 2021-06-06 17:02 | P.PN ---
Subjective Progress Note Date: 06/06/21 Principal diagnosis: Bilateral lower extremity cellulitis Patient is a 71-year-old female presented to hospital with weakness did have significant swelling to both lower extremity and some superficial ulceration to the left leg concerning for cellulitis. On today's evaluation that is 06/06/2021, the patient remains to be afebrile, the patient is breathing comfortably, the patient denies having any chest pain or shortness with a cough , the patient denies abdominal pain , the patient discomfort to the bilateral lower extremity has decreased Objective - Vital Signs Vital signs: Vital Signs Temp 98.2 F 06/06/21 11:49 Pulse 79 06/06/21 12:07 Resp 18 06/06/21 11:49 BP 102/67 06/06/21 11:49 Pulse Ox 98 06/06/21 11:49 Intake & Output 06/05/21 06/06/21 06/06/21 18:59 06:59 18:59 Intake Total 360 340 Balance 360 340 Intake: Intake, IV Titration 100 Amount Ampicillin-Sulbactam 3 gm 100 In Sodium Chloride 0.9% 100 ml @ 200 mls/hr IVPB Q8HR [facility] Rx#:[id number] Oral 360 240 Other: Voiding Method Bedside Commode Bedside Commode Bedside Commode # Voids 4 1 # Bowel Movements 1 2 - Exam GENERAL DESCRIPTION: An elderly female lying in bed in no distress RESPIRATORY SYSTEM: Unlabored breathing , decreased breath sounds at bases HEART: S1 S2 regular rate and rhythm , ABDOMEN: Soft , no tenderness EXTREMITIES: Bilateral legs are currently wrapped , her redness has decreased and no drainage - Labs CBC & Chem 7: 06/06/21 05:34 06/06/21 05:34 Labs: Abnormal Lab Results - Last 24 Hours (Table) 06/05/21 06/06/21 06/06/21 Range/Units 20:28 05:34 05:34 WBC (4.50-10.00) X 10*3/uL RBC (4.10-5.20) X 10*6/uL Hgb (12.0-15.0) g/dL MCHC (32.0-37.0) g/dL RDW (11.5-14.5) % Immature Gran # (0.00-0.04) X 10*3/uL Neutrophils # (1.80-7.70) X 10*3/uL Monocytes # (0.20-1.00) X 10*3/uL Sodium 136 L (137-145) mmol/L Carbon Dioxide 31 H (22-30) mmol/L BUN 38 H (7-17) mg/dL Creatinine 1.91 H (0.52-1.04) mg/dL Glucose 104 H (74-99) mg/dL POC Glucose (mg/dL) 180 H (75-99) mg/dL Hemoglobin A1c 6.1 H (0.0-6.0) % 06/06/21 Range/Units 05:34 WBC 13.10 H (4.50-10.00) X 10*3/uL RBC 4.00 L (4.10-5.20) X 10*6/uL Hgb 11.4 L (12.0-15.0) g/dL MCHC 29.8 L (32.0-37.0) g/dL RDW 14.6 H (11.5-14.5) % Immature Gran # 0.08 H (0.00-0.04) X 10*3/uL Neutrophils # 10.44 H (1.80-7.70) X 10*3/uL Monocytes # 1.39 H (0.20-1.00) X 10*3/uL Sodium (137-145) mmol/L Carbon Dioxide (22-30) mmol/L BUN (7-17) mg/dL Creatinine (0.52-1.04) mg/dL Glucose (74-99) mg/dL POC Glucose (mg/dL) (75-99) mg/dL Hemoglobin A1c (0.0-6.0) % Microbiology - Last 24 Hours (Table) 06/03/21 16:30 Blood Culture - Preliminary Blood No Growth after 48 hours 06/03/21 17:30 Blood Culture - Preliminary Blood No Growth after 48 hours Assessment and Plan (1) Cellulitis Current Visit: Yes Status: Acute Code(s): L03.90 - CELLULITIS, UNSPECIFIED SNOMED Code(s): 660617179 (2) Sepsis Current Visit: Yes Status: Acute Code(s): A41.9 - SEPSIS, UNSPECIFIED ORGANISM SNOMED Code(s): 95908647 Plan: 1patient presented to hospital with sepsis in this patient did have fever elevated white count source likely bilateral lower extremity cellulitis left greater than the right and likely from gram-positive skin florecita. 2patient with elevated creatinine high risk of nephrotoxicity from vancomycin. 3local wound care to be left lower extremity with Aquacel silver to the open wound moisturizing cream to the dry scaly skin to the leg followed by Alfonso wrap from just above the toe to below the knee. 4local wound care to the right leg wound with moisturizing cream to the skin and Alfonso wrap from distal lateral to below the knee. 5patient seemed to have clinically responded to the Unasyn her white count is trending down, patient to continue with Unasyn 3 g every 8 hours, hopefully finishing therapy with oral antibiotics Time with Patient: Less than 30
[2021-06-06 17:08] LABS: Glucose,Whole Blood 101 mg/dL (75-99)
--- NOTE | 2021-06-06 17:47 | CDI ---
Documentation Clarification Form Date: 06/06/2021 05:20:25 PM From: Marleni Mosley RN, CCDS Admit Date: 06/03/2021 05:49:00 PM Patient Name: Jorge Kelsey Visit Number: [id number] Discharge Date: ATTENTION: The Clinical Documentation Specialists (CDI) and [facility] Coding Staff appreciate your assistance in clarifying documentation. Please respond to the clarification below the line at the bottom and electronically sign. The CDI & [facility] Coding staff will review the response and follow-up if needed. Please note: Queries are made part of the Legal Health Record. If you have any questions, please contact the author of this message via ITS. Dr. Jeet Alaniz Cellulitis is documented in the ED assessment, ID consult, H/P and subsequent progress notes and this patient has history of diabetes mellitus type II. Additional clarification regarding the type of cellulitis is requested. History/risk factors: Diabetes Mellitus, DVT, Hypertension PE, Morbid obesity Clinical Indicators: 70-year-old present with recently diagnosed cellulitis. Patient has chronic leg edema. She has erythema right lower leg, lower extremity edema 1+, open wounds with minimal serous drainage. Cellulitis of both lower extremities. She has some erythema superficial ulceration to the left lower leg with no slough tissue or any foul-smelling drainage. 06/03 Labs: WBC 16.9, Neutrophils 15.6, BUN 24, CR 2.08, Glucose 102, Lactic acid 1.4 06/03 Vital signs: 127/60 60 35 101.4 93 % Treatment: Left lower extremity open wounds followed by Alfonso wrap from just above the toe to below the knee. Right leg wound with moisturizing cream to the skin and Alfonso wrap from distal lateral to below the knee Unasyn 3 GM Q 8 HRS Insulin Novolog SQ Sliding scale Monitor blood glucose ACHS Please clarify the type of cellulitis, if known: [ ] Cellulitis due to Diabetes Mellitus type 2 [ ] Chronic Cellulitis [ ] Other, please specify: [ ] Unable to determine (Template Last Revised: April 2020) Cellulitis due to Diabetes Mellitus type 2 MTDD
[2021-06-06 20:58] LABS: Glucose,Whole Blood 100 mg/dL (75-99)
[2021-06-06] MEDS: ATORVASTATIN 20 MG TAB PO SCH (21:03)
[2021-06-06] MEDS: GABAPENTIN 300 MG CAP PO PRN (21:07)
[2021-06-07 06:56] LABS: Glucose,Whole Blood 85 mg/dL (75-99)
[2021-06-07] MEDS: IPRATROPIUM-ALBUTEROL 3 ML NEB INHALATION SCH ×4 (07:50→19:34)
[2021-06-07] MEDS: INSULIN ASPART (NovoLOG) 100 UNIT/ML VIAL SQ SCH ×4 (08:05→23:22)
[2021-06-07] MEDS: buPROPion XL 300 MG TAB.ER.24H PO SCH (09:32)
[2021-06-07] MEDS: SPIRONOLACTONE 25 MG TAB PO SCH (09:33)
[2021-06-07] MEDS: FAMOTIDINE 20 MG TAB PO SCH (09:33)
[2021-06-07] MEDS: AMPICILLIN-SULBACTAM 3 GM in SODIUM CHLORIDE 0.9% 100 ML IVPB SCH ×2 (09:33→15:49)
[2021-06-07] MEDS: LOSARTAN 50 MG TAB PO SCH (09:33)
[2021-06-07] MEDS: MINERAL OIL-WHITE PETROLATUM CREAM 454 GM JAR TOPICAL SCH (09:34)
[2021-06-07] MEDS: BREXPIPRAZOLE 3 MG PO SCH (09:34)
[2021-06-07] MEDS: hydroCHLOROthiazide 25 MG TAB PO SCH (09:34)
[2021-06-07] MEDS: PSYLLIUM HUSK 100% 6 GM PACKET PO SCH (09:35)
[2021-06-07 11:33] LABS: Basophils # (A) 0.03 X 10*3/uL (0.00-0.10); Basophils % (A) 0.3 %; Eosinophils # (A) 0.42 X 10*3/uL (0.04-0.35); Eosinophils % (A) 4.4 %; HCT 38.2 % (37.2-46.3); HGB 11.3 g/dL (12.0-15.0); Immature Grans, Automated 1.4 %; Lymphocytes # (A) 1.31 X 10*3/uL (0.90-5.00); Lymphocytes % (A) 13.7 %; MCH 28.5 pg (27.0-32.0); MCHC 29.6 g/dL (32.0-37.0); MCV 96.2 fL (80.0-97.0); Mean Platelet Volume 10.5 fL (9.5-12.2); Monocytes # (A) 1.03 X 10*3/uL (0.20-1.00); Monocytes % (A) 10.7 %; NRBC Per 100 WBC 0 /100 WBCS (0.0-0.0); Neutrophils # (A) 6.67 X 10*3/uL (1.80-7.70); Neutrophils % (A) 69.5 %; Platelet Count 268 X 10*3/uL (140-440); RBC 3.97 X 10*6/uL (4.10-5.20); RDW 14.9 % (11.5-14.5); WBC 9.59 X 10*3/uL (4.50-10.00)
[2021-06-07 11:42] LABS: African American GFR (CKD) 35.1 (60.0-200.0); Anion Gap 9.9 mmol/L (10.00-18.00); BUN/Creat Ratio 16.51 Ratio (12.00-20.00); Blood Urea Nitrogen 27.9 mg/dL (9.0-27.0); Calcium 8.9 mg/dL (8.7-10.3); Carbon Dioxide 28.5 mmol/L (20.0-27.5); Non-African American GFR(CKD) 30.2 (60.0-200.0); Potassium 4.5 mmol/L (3.5-5.5)
[2021-06-07 12:10] LABS: Glucose,Whole Blood 76 mg/dL (75-99)
[2021-06-07 17:20] LABS: Glucose,Whole Blood 110 mg/dL (75-99)
[2021-06-07] MEDS: RIVAROXABAN 20 MG TAB PO SCH (17:24)
--- NOTE | 2021-06-07 18:02 | P.PN ---
Subjective This is a pleasant 70 years old female with past medical history of asthma, COPD, diabetes mellitus, deep venous thrombosis on Xarelto, GERD, hypertension, hyperlipidemia, osteoarthritis, pulmonary embolism, hypothyroidism. Presents with cellulitis and be covered currently with Unasyn. Also continued on home dose of Xarelto. Looks like patient improved gradually. Leukocytosis improved today with WBC 9.5. Hemoglobin 11.3. Creatinine improved down to 1.7. Objective - Vital Signs Vital signs: Vital Signs Temp 97.7 F 06/07/21 11:29 Pulse 76 06/07/21 12:04 Resp 18 06/07/21 11:29 BP 142/67 06/07/21 11:29 Pulse Ox 98 06/07/21 11:29 Intake & Output 06/06/21 06/07/21 06/07/21 18:59 06:59 18:59 Intake Total 360 200 Output Total 600 450 Balance -240 -250 Intake: Oral 360 200 Output: Urine 600 450 Other: Voiding Method Bedside Commode Bedside Commode # Voids 2 1 # Bowel Movements 2 0 1 - Exam GENERAL: The patient is alert and oriented x3, not in any acute distress. Well developed, well nourished. HEENT: Pupils are round and equally reacting to light. EOMI. No scleral icterus. No conjunctival pallor. Normocephalic, atraumatic. No pharyngeal erythema. No thyromegaly. CARDIOVASCULAR: S1 and S2 present. No murmurs, rubs, or gallops. PULMONARY: Chest is clear to auscultation, no wheezing or crackles. ABDOMEN: Soft, nontender, nondistended, normoactive bowel sounds. No palpable organomegaly. MUSCULOSKELETAL: No joint swelling or deformity. -EXTREMITIES: No cyanosis, clubbing, or pedal edema. Bilateral cellulitis, more on the right side, with dressing in place. Improving NEUROLOGICAL: Gross neurological examination did not reveal any focal deficits. SKIN: No rashes. no petechiae. - Labs CBC & Chem 7: 06/07/21 06:11 06/07/21 06:11 Labs: Abnormal Lab Results - Last 24 Hours (Table) 06/06/21 06/06/21 06/06/21 Range/Units 05:34 17:06 20:37 RBC (4.10-5.20) X 10*6/uL Hgb (12.0-15.0) g/dL MCHC (32.0-37.0) g/dL RDW (11.5-14.5) % Immature Gran # (0.00-0.04) X 10*3/uL Monocytes # (0.20-1.00) X 10*3/uL Eosinophils # (0.04-0.35) X 10*3/uL Carbon Dioxide (20.0-27.5) mmol/L Anion Gap (10.00-18.00) mmol/L BUN (9.0-27.0) mg/dL Creatinine (0.6-1.5) mg/dL Est GFR (CKD-EPI)AfAm (60.0-200.0) Est GFR (CKD-EPI)NonAf (60.0-200.0) POC Glucose (mg/dL) 101 H 100 H (75-99) mg/dL Hemoglobin A1c 6.1 H (0.0-6.0) % 06/07/21 06/07/21 Range/Units 06:11 06:11 RBC 3.97 L (4.10-5.20) X 10*6/uL Hgb 11.3 L (12.0-15.0) g/dL MCHC 29.6 L (32.0-37.0) g/dL RDW 14.9 H (11.5-14.5) % Immature Gran # 0.13 H (0.00-0.04) X 10*3/uL Monocytes # 1.03 H (0.20-1.00) X 10*3/uL Eosinophils # 0.42 H (0.04-0.35) X 10*3/uL Carbon Dioxide 28.5 H (20.0-27.5) mmol/L Anion Gap 9.90 L (10.00-18.00) mmol/L BUN 27.9 H (9.0-27.0) mg/dL Creatinine 1.7 H (0.6-1.5) mg/dL Est GFR (CKD-EPI)AfAm 35.1 L (60.0-200.0) Est GFR (CKD-EPI)NonAf 30.2 L (60.0-200.0) POC Glucose (mg/dL) (75-99) mg/dL Hemoglobin A1c (0.0-6.0) % Microbiology - Last 24 Hours (Table) 06/03/21 16:30 Blood Culture - Preliminary Blood No Growth after 72 hours 06/03/21 17:30 Blood Culture - Preliminary Blood No Growth after 72 hours Assessment and Plan Assessment: Bilateral leg cellulitis Hypertension Hyperlipidemia Diabetes mellitus History of GERD History of posterior arthritis History of DVT/PE on Xarelto History of asthma, COPD, no acute exacerbation Hypothyroidism Obesity with BMI 45.9 Plan: this is a pleasant 70 years old female who presents with cellulitis Continue with Unasyn Labs and medication were reviewed.. Continue same treatment. Continue with symptomatic treatment. Resume home medication. Monitor lytes and vitals. DVT and GI prophylaxis. Further recommendations as per clinical course of the patient DVT prophylaxis: Xarelto GI Prophylaxis: Pepcid PT/OT: Home health care, ordered
[2021-06-07] MEDS: GABAPENTIN 300 MG CAP PO PRN (20:00)
[2021-06-07] MEDS: ATORVASTATIN 20 MG TAB PO SCH (20:00)
[2021-06-07 20:39] LABS: Glucose,Whole Blood 90 mg/dL (75-99)
[2021-06-07] MEDS: ACETAMINOPHEN TAB 325 MG TAB PO PRN (20:47)
[2021-06-08] MEDS: AMPICILLIN-SULBACTAM 3 GM in SODIUM CHLORIDE 0.9% 100 ML IVPB SCH ×4 (00:02→23:31)
[2021-06-08 07:16] LABS: Glucose,Whole Blood 91 mg/dL (75-99)
[2021-06-08] MEDS: INSULIN ASPART (NovoLOG) 100 UNIT/ML VIAL SQ SCH ×4 (07:31→20:33)
[2021-06-08] MEDS: buPROPion XL 300 MG TAB.ER.24H PO SCH (07:42)
[2021-06-08] MEDS: BREXPIPRAZOLE 3 MG PO SCH (07:42)
[2021-06-08] MEDS: FAMOTIDINE 20 MG TAB PO SCH (07:43)
[2021-06-08] MEDS: LOSARTAN 50 MG TAB PO SCH (07:43)
[2021-06-08] MEDS: hydroCHLOROthiazide 25 MG TAB PO SCH (07:43)
[2021-06-08] MEDS: PSYLLIUM HUSK 100% 6 GM PACKET PO SCH ×2 (07:43→07:45)
[2021-06-08] MEDS: SPIRONOLACTONE 25 MG TAB PO SCH (07:43)
[2021-06-08] MEDS: MINERAL OIL-WHITE PETROLATUM CREAM 454 GM JAR TOPICAL SCH (07:59)
[2021-06-08] MEDS: IPRATROPIUM-ALBUTEROL 3 ML NEB INHALATION SCH ×4 (08:47→19:49)
[2021-06-08 10:59] LABS: Glucose,Whole Blood 102 mg/dL (75-99)
--- NOTE | 2021-06-08 12:51 | P.PN ---
Subjective This is a pleasant 70 years old female with past medical history of asthma, COPD, diabetes mellitus, deep venous thrombosis on Xarelto, GERD, hypertension, hyperlipidemia, osteoarthritis, pulmonary embolism, hypothyroidism. Presents with cellulitis and be covered currently with Unasyn. Also continued on home dose of Xarelto. Looks like patient improved gradually. Leukocytosis improved today with WBC 9.5. Hemoglobin 11.3. Creatinine improved down to 1.7. 06/08/2021 Patient with known new symptoms. Her leg cellulitis improving on both sides. She is kept on Unasyn. Her creatinine improving but it's elevated compared to baseline of 0.8, yesterday creatinine 1.7. Labs from today pending. We ordered urine analysis, bladder scan and nephrology consult Objective - Vital Signs Vital signs: Vital Signs Temp 97.7 F 06/08/21 04:14 Pulse 78 06/08/21 09:00 Resp 20 06/08/21 04:14 BP 135/71 06/08/21 04:14 Pulse Ox 100 06/08/21 08:50 Intake & Output 06/07/21 06/08/21 06/08/21 18:59 06:59 18:59 Intake Total 100 400 Output Total 450 Balance 100 -50 Intake: Intake, IV Titration 100 Amount Ampicillin-Sulbactam 3 gm 100 In Sodium Chloride 0.9% 100 ml @ 200 mls/hr IVPB Q8HR [facility] Rx#:[id number] Oral 400 Output: Urine 450 Other: Voiding Method Bedside Commode # Voids 1 2 1 # Bowel Movements 1 0 - Exam GENERAL: The patient is alert and oriented x3, not in any acute distress. Well developed, well nourished. HEENT: Pupils are round and equally reacting to light. EOMI. No scleral icterus. No conjunctival pallor. Normocephalic, atraumatic. No pharyngeal erythema. No thyromegaly. CARDIOVASCULAR: S1 and S2 present. No murmurs, rubs, or gallops. PULMONARY: Chest is clear to auscultation, no wheezing or crackles. ABDOMEN: Soft, nontender, nondistended, normoactive bowel sounds. No palpable organomegaly. MUSCULOSKELETAL: No joint swelling or deformity. -EXTREMITIES: No cyanosis, clubbing, or pedal edema. Bilateral cellulitis, more on the right side, with dressing in place. Improving NEUROLOGICAL: Gross neurological examination did not reveal any focal deficits. SKIN: No rashes. no petechiae. - Labs CBC & Chem 7: 06/07/21 06:11 06/07/21 06:11 Labs: Abnormal Lab Results - Last 24 Hours (Table) 06/07/21 06/07/21 06/07/21 Range/Units 06:11 06:11 17:18 RBC 3.97 L (4.10-5.20) X 10*6/uL Hgb 11.3 L (12.0-15.0) g/dL MCHC 29.6 L (32.0-37.0) g/dL RDW 14.9 H (11.5-14.5) % Immature Gran # 0.13 H (0.00-0.04) X 10*3/uL Monocytes # 1.03 H (0.20-1.00) X 10*3/uL Eosinophils # 0.42 H (0.04-0.35) X 10*3/uL Carbon Dioxide 28.5 H (20.0-27.5) mmol/L Anion Gap 9.90 L (10.00-18.00) mmol/L BUN 27.9 H (9.0-27.0) mg/dL Creatinine 1.7 H (0.6-1.5) mg/dL Est GFR (CKD-EPI)AfAm 35.1 L (60.0-200.0) Est GFR (CKD-EPI)NonAf 30.2 L (60.0-200.0) POC Glucose (mg/dL) 110 H (75-99) mg/dL 06/08/21 Range/Units 10:56 RBC (4.10-5.20) X 10*6/uL Hgb (12.0-15.0) g/dL MCHC (32.0-37.0) g/dL RDW (11.5-14.5) % Immature Gran # (0.00-0.04) X 10*3/uL Monocytes # (0.20-1.00) X 10*3/uL Eosinophils # (0.04-0.35) X 10*3/uL Carbon Dioxide (20.0-27.5) mmol/L Anion Gap (10.00-18.00) mmol/L BUN (9.0-27.0) mg/dL Creatinine (0.6-1.5) mg/dL Est GFR (CKD-EPI)AfAm (60.0-200.0) Est GFR (CKD-EPI)NonAf (60.0-200.0) POC Glucose (mg/dL) 102 H (75-99) mg/dL Microbiology - Last 24 Hours (Table) 06/03/21 16:30 Blood Culture - Preliminary Blood No Growth after 96 hours 06/03/21 17:30 Blood Culture - Preliminary Blood No Growth after 96 hours Assessment and Plan Assessment: Bilateral leg cellulitis Acute kidney injury Hypertension Hyperlipidemia Diabetes mellitus History of GERD History of posterior arthritis History of DVT/PE on Xarelto History of asthma, COPD, no acute exacerbation Hypothyroidism Obesity with BMI 45.9 Plan: this is a pleasant 70 years old female who presents with cellulitis Continue with Unasyn Consult nephrology. Check urinalysis and bladder scan Labs and medication were reviewed.. Continue same treatment. Continue with symptomatic treatment. Resume home medication. Monitor lytes and vitals. DVT and GI prophylaxis. Further recommendations as per clinical course of the patient DVT prophylaxis: Xarelto GI Prophylaxis: Pepcid PT/OT: Home health care, ordered Dr. Alaniz team will resume the care of the patient tomorrow
[2021-06-08 14:27] LABS: Appearance,Urine Clear (Clear); Bilirubin,Urine Negative (Negative); Blood,Urine Negative (Negative); Color,Urine Light Yellow; Glucose,Urine (UA) Negative (Negative); Ketones,Urine Negative (Negative); Leukocyte Esterase,Urine Negative (Negative); Nitrite,Urine Negative (Negative); Protein,Urine Negative (Negative); Urobilinogen,Urine <2.0 mg/dL (<2.0)
[2021-06-08 17:12] LABS: Glucose,Whole Blood 86 mg/dL (75-99)
[2021-06-08] MEDS: RIVAROXABAN 20 MG TAB PO SCH (17:39)
[2021-06-08] MEDS: GABAPENTIN 300 MG CAP PO PRN (19:33)
[2021-06-08 20:29] LABS: Glucose,Whole Blood 129 mg/dL (75-99)
[2021-06-08] MEDS: ATORVASTATIN 20 MG TAB PO SCH (20:36)
[2021-06-08] MEDS: ACETAMINOPHEN TAB 325 MG TAB PO PRN (20:36)
--- NOTE | 2021-06-08 23:55 | P.PN ---
Subjective Progress Note Date: 06/07/21 Principal diagnosis: Bilateral lower extremity cellulitis Patient is a 71-year-old female presented to hospital with weakness did have significant swelling to both lower extremity and some superficial ulceration to the left leg concerning for cellulitis. On today's evaluation that is 06/07/2021, the patient continues to be afebrile, the patient is breathing comfortably on Levaquin and oxygen, the patient denies having any chest pain or shortness with a cough , the patient denies abdominal pain , the patient pain to the bilateral lower extremity has decreased in in tensity Objective - Vital Signs Vital signs: Vital Signs Temp 97.7 F 06/07/21 11:29 Pulse 72 06/07/21 16:20 Resp 18 06/07/21 11:29 BP 142/67 06/07/21 11:29 Pulse Ox 98 06/07/21 11:29 Intake & Output 06/06/21 06/07/21 06/07/21 18:59 06:59 18:59 Intake Total 360 200 100 Output Total 600 450 Balance -240 -250 100 Intake: Intake, IV Titration 100 Amount Ampicillin-Sulbactam 3 gm 100 In Sodium Chloride 0.9% 100 ml @ 200 mls/hr IVPB Q8HR [facility] Rx#:[id number] Oral 360 200 Output: Urine 600 450 Other: Voiding Method Bedside Commode Bedside Commode # Voids 2 1 # Bowel Movements 2 0 1 - Exam GENERAL DESCRIPTION: An elderly female lying in bed in no distress RESPIRATORY SYSTEM: Unlabored breathing , decreased breath sounds at bases HEART: S1 S2 regular rate and rhythm , ABDOMEN: Soft , no tenderness EXTREMITIES: Bilateral legs are currently wrapped , her redness has decreased and no drainage - Labs CBC & Chem 7: 06/07/21 06:11 06/07/21 06:11 Labs: Abnormal Lab Results - Last 24 Hours (Table) 06/06/21 06/06/21 06/07/21 Range/Units 17:06 20:37 06:11 RBC 3.97 L (4.10-5.20) X 10*6/uL Hgb 11.3 L (12.0-15.0) g/dL MCHC 29.6 L (32.0-37.0) g/dL RDW 14.9 H (11.5-14.5) % Immature Gran # 0.13 H (0.00-0.04) X 10*3/uL Monocytes # 1.03 H (0.20-1.00) X 10*3/uL Eosinophils # 0.42 H (0.04-0.35) X 10*3/uL Carbon Dioxide (20.0-27.5) mmol/L Anion Gap (10.00-18.00) mmol/L BUN (9.0-27.0) mg/dL Creatinine (0.6-1.5) mg/dL Est GFR (CKD-EPI)AfAm (60.0-200.0) Est GFR (CKD-EPI)NonAf (60.0-200.0) POC Glucose (mg/dL) 101 H 100 H (75-99) mg/dL 06/07/21 Range/Units 06:11 RBC (4.10-5.20) X 10*6/uL Hgb (12.0-15.0) g/dL MCHC (32.0-37.0) g/dL RDW (11.5-14.5) % Immature Gran # (0.00-0.04) X 10*3/uL Monocytes # (0.20-1.00) X 10*3/uL Eosinophils # (0.04-0.35) X 10*3/uL Carbon Dioxide 28.5 H (20.0-27.5) mmol/L Anion Gap 9.90 L (10.00-18.00) mmol/L BUN 27.9 H (9.0-27.0) mg/dL Creatinine 1.7 H (0.6-1.5) mg/dL Est GFR (CKD-EPI)AfAm 35.1 L (60.0-200.0) Est GFR (CKD-EPI)NonAf 30.2 L (60.0-200.0) POC Glucose (mg/dL) (75-99) mg/dL Microbiology - Last 24 Hours (Table) 06/03/21 16:30 Blood Culture - Preliminary Blood No Growth after 72 hours 06/03/21 17:30 Blood Culture - Preliminary Blood No Growth after 72 hours Assessment and Plan (1) Cellulitis Current Visit: Yes Status: Acute Code(s): L03.90 - CELLULITIS, UNSPECIFIED SNOMED Code(s): 094776075 (2) Sepsis Current Visit: Yes Status: Acute Code(s): A41.9 - SEPSIS, UNSPECIFIED ORGANISM SNOMED Code(s): 32432474 Plan: 1patient presented to hospital with sepsis in this patient did have fever elevated white count source likely bilateral lower extremity cellulitis left greater than the right and likely from gram-positive skin florecita. 2 local wound care to be left lower extremity with Aquacel silver to the open wound moisturizing cream to the dry scaly skin to the leg followed by Alfonso wrap from just above the toe to below the knee. 3local wound care to the right leg wound with moisturizing cream to the skin and Alfonso wrap from distal lateral to below the knee. 4patient seemed to have clinically responded to the Unasyn her white count is trending down, patient to continue with Unasyn 3 g every 8 hours, Time with Patient: Less than 30
--- NOTE | 2021-06-08 23:56 | P.PN ---
Subjective Progress Note Date: 06/08/21 Principal diagnosis: Bilateral lower extremity cellulitis Patient is a 71-year-old female presented to hospital with weakness did have significant swelling to both lower extremity and some superficial ulceration to the left leg concerning for cellulitis. On today's evaluation that is 06/08/2021, the patient denies any fever or any chills, the patient is breathing comfortably on Levaquin and oxygen, the patient denies having any chest pain or shortness with a cough , the patient denies abdominal pain , the patient denies pain to the bilateral lower extremity and no further drainage Objective - Vital Signs Vital signs: Vital Signs Temp 97.8 F 06/08/21 11:16 Pulse 76 06/08/21 12:16 Resp 16 06/08/21 11:16 BP 114/71 06/08/21 11:16 Pulse Ox 97 06/08/21 11:16 Intake & Output 06/07/21 06/08/21 06/08/21 18:59 06:59 18:59 Intake Total 100 400 Output Total 450 Balance 100 -50 Intake: Intake, IV Titration 100 Amount Ampicillin-Sulbactam 3 gm 100 In Sodium Chloride 0.9% 100 ml @ 200 mls/hr IVPB Q8HR [facility] Rx#:[id number] Oral 400 Output: Urine 450 Other: Voiding Method Bedside Commode # Voids 1 2 1 # Bowel Movements 1 0 - Exam GENERAL DESCRIPTION: An elderly female lying in bed in no distress RESPIRATORY SYSTEM: Unlabored breathing , decreased breath sounds at bases HEART: S1 S2 regular rate and rhythm , ABDOMEN: Soft , no tenderness EXTREMITIES: Bilateral legs are currently wrapped , her redness has decreased and no drainage - Labs CBC & Chem 7: 06/07/21 06:11 06/07/21 06:11 Labs: Abnormal Lab Results - Last 24 Hours (Table) 06/07/21 06/08/21 Range/Units 17:18 10:56 POC Glucose (mg/dL) 110 H 102 H (75-99) mg/dL Microbiology - Last 24 Hours (Table) 06/03/21 16:30 Blood Culture - Preliminary Blood No Growth after 96 hours 06/03/21 17:30 Blood Culture - Preliminary Blood No Growth after 96 hours Assessment and Plan (1) Cellulitis Current Visit: Yes Status: Acute Code(s): L03.90 - CELLULITIS, UNSPECIFIED SNOMED Code(s): 793869791 (2) Sepsis Current Visit: Yes Status: Acute Code(s): A41.9 - SEPSIS, UNSPECIFIED ORGANISM SNOMED Code(s): 70384084 Plan: 1patient presented to hospital with sepsis in this patient did have fever elevated white count source likely bilateral lower extremity cellulitis left greater than the right and likely from gram-positive skin florecita. 2 local wound care to be left lower extremity with Aquacel silver to the open wound moisturizing cream to the dry scaly skin to the leg followed by Alfonso wrap from just above the toe to below the knee. 3local wound care to the right leg wound with moisturizing cream to the skin and Alfonso wrap from distal lateral to below the knee. 4patient seemed to have clinically responded to the Unasyn , the patient white count has normalized, she will continue with Unasyn while inpatient finishing therapy with oral Augmentin 7 days Time with Patient: Less than 30
[2021-06-09 07:11] LABS: Glucose,Whole Blood 84 mg/dL (75-99)
[2021-06-09] MEDS: INSULIN ASPART (NovoLOG) 100 UNIT/ML VIAL SQ SCH ×2 (08:12→11:44)
[2021-06-09] MEDS: BREXPIPRAZOLE 3 MG PO SCH (08:13)
[2021-06-09] MEDS: PSYLLIUM HUSK 100% 6 GM PACKET PO SCH (08:14)
[2021-06-09] MEDS: buPROPion XL 300 MG TAB.ER.24H PO SCH (08:15)
[2021-06-09] MEDS: SPIRONOLACTONE 25 MG TAB PO SCH (08:15)
[2021-06-09] MEDS: FAMOTIDINE 20 MG TAB PO SCH (08:15)
[2021-06-09] MEDS: hydroCHLOROthiazide 25 MG TAB PO SCH (08:15)
[2021-06-09] MEDS: LOSARTAN 50 MG TAB PO SCH (08:15)
[2021-06-09] MEDS: AMPICILLIN-SULBACTAM 3 GM in SODIUM CHLORIDE 0.9% 100 ML IVPB SCH (08:16)
[2021-06-09] MEDS: MINERAL OIL-WHITE PETROLATUM CREAM 454 GM JAR TOPICAL SCH (08:17)
[2021-06-09] MEDS: IPRATROPIUM-ALBUTEROL 3 ML NEB INHALATION SCH ×2 (08:41→13:15)
[2021-06-09 09:28] LABS: African American GFR (CKD) 39.2 (60.0-200.0); Anion Gap 9.6 mmol/L (10.00-18.00); BUN/Creat Ratio 11.23 Ratio (12.00-20.00); Blood Urea Nitrogen 17.3 mg/dL (9.0-27.0); Carbon Dioxide 28.7 mmol/L (20.0-27.5); Non-African American GFR(CKD) 33.8 (60.0-200.0); Potassium 4.2 mmol/L (3.5-5.5)
--- NOTE | 2021-06-09 10:57 | P.NPCON ---
History of Present Illness - Reason for Consult acute renal failure, chronic renal failure - History of Present Illness Reason for consultation: Acute kidney injury on chronic kidney disease History of present illness: Patient is a 70-year-old female seen in consultation for acute kidney injury and chronic kidney disease. 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 Patient's creatinine in October 2020 was 1.9, eGFR 26. Patient's creatinine this admission was 2.08 and is down to 1.5 today. Patient presented to the hospital after she sustained a fall. Patient doesn't quite remember how she fell. She is being treated for Luisana from a cellulitis. Denies chest pain or shortness of breath. Does have history of diabetes. No vomiting or diarrhea. Oral intake is fair. Blood pressure has been somewhat labile ranging from low 100s to 160s systolic. She denies any hematuria or dysuria. Denies family history of renal disease. I don't see any NSAIDs and her home medication list. Currently sitting up in bed. No active complaints. Vital signs are stable. General: Awake. No acute distress. HEENT: Head exam is unremarkable. LUNGS: Breath sounds decreased. HEART: Rate and Rhythm are regular. ABDOMEN: Soft, obese. EXTREMITITES: Trace edema. Luisana remedies resolved. Past Medical History Past Medical History: Asthma, COPD, Diabetes Mellitus, Deep Vein Thrombosis (DVT), GERD/Reflux, Hyperlipidemia, Hypertension, Mitral Valve Prolapse (MVP), Osteoarthritis (OA), Pneumonia, Pulmonary Embolus (PE), Thyroid Disorder Additional Past Medical History / Comment(s): Recent diagnosis of bilateral cellulitis, chronic bilateral leg edema, RLS, bilateral PEs/R leg DVT after back surgery, MVP, NIDDM diet controlled, chronic head tremors, gout, neuropathy bilateral feet, chronic low back pain. History of Any Multi-Drug Resistant Organisms: None Reported Past Surgical History: Back Surgery, Breast Surgery, Cholecystectomy, Heart Catheterization, Hernia Repair, Hysterectomy, Joint Replacement Additional Past Surgical History / Comment(s): spinal surgery with screws and metal plate, jennifer breast reduction, RT CHRISTIANO, COLONOSCOPY, BILAT CATARACTS REMOVED WITH LENS IMPLANTS, bladder suspension x2, hiatal hernia repair Past Anesthesia/Blood Transfusion Reactions: No Reported Reaction Smoking Status: Former smoker - Past Family History Mother Family Medical History: Cancer Additional Family Medical History / Comment(s): breast cancer Father Family Medical History: No Reported History Additional Family Medical History / Comment(s): Father was healthy Medications and Allergies Home Medications Medication Instructions Recorded Confirmed Type Simvastatin [Zocor] 40 mg PO HS 06/23/13 06/03/21 History buPROPion HCL [Wellbutrin XL] 300 mg PO DAILY 06/23/13 06/03/21 History Ascorbic Acid [Vitamin C] 500 mg PO DAILY 07/30/17 06/03/21 History Mirabegron [Myrbetriq] 50 mg PO DAILY 07/30/17 06/03/21 History Multivitamins, Thera [Multivitamin 1 tab PO DAILY 07/30/17 06/03/21 History (formulary)] ARIPiprazole [Abilify] 20 mg PO DAILY 08/10/17 06/03/21 History Losartan [Cozaar] 50 mg PO DAILY #0 08/13/17 06/03/21 Rx Brexpiprazole [Rexulti] 3 mg PO DAILY 06/03/21 06/03/21 History Cholecalciferol [Vitamin D3 (25 25 mcg PO DAILY 06/03/21 06/03/21 History Mcg = 1000 Iu)] DULoxetine HCL [Cymbalta] 60 mg PO DAILY 06/03/21 06/03/21 History Famotidine 40 mg PO DAILY 06/03/21 06/03/21 History Gabapentin 600 mg PO BID PRN 06/03/21 06/03/21 History Rivaroxaban [Xarelto] 20 mg PO W/SUPPER 06/03/21 06/03/21 History SILVER sulfADIAZINE CREAM 1 applic TOPICAL BID 06/03/21 06/03/21 History [Silvadene Cream] Semaglutide [Ozempic] 0.5 mg SQ MO 06/03/21 06/03/21 History Spironolactone 50 mg PO DAILY 06/03/21 06/03/21 History Tolterodine Tartrate [Tolterodine 4 mg PO DAILY 06/03/21 06/03/21 History Tartrate ER] Umeclidinium Brm/Vilanterol Tr 1 puff INHALATION RT-BID 06/03/21 06/03/21 History [Anoro Ellipta 62.5-25 Mcg INH] Vitamin E [Vitamin E (1000 Iu = 1,000 unit PO DAILY 06/03/21 06/03/21 History 450 MG)] hydroCHLOROthiazide 25 mg PO DAILY 06/03/21 06/03/21 History metOLazone [Zaroxolyn] 2.5 mg PO MOFR 06/03/21 06/03/21 History Allergies Allergy/AdvReac Type Severity Reaction Status Date / Time No Known Allergies Allergy Verified 06/03/21 17:41 Physical Exam Vitals: Vital Signs Temp Pulse Pulse Resp BP BP Pulse Ox 06/09/21 08:52 84 06/09/21 08:43 80 06/09/21 04:08 98.8 F 79 18 163/74 92 L 06/08/21 20:02 76 06/08/21 20:00 98 F 84 18 109/72 92 L 06/08/21 19:49 72 95 06/08/21 16:24 76 06/08/21 16:15 80 06/08/21 12:16 76 06/08/21 12:05 74 06/08/21 11:16 97.8 F 66 16 114/71 97 Intake and Output 06/08/21 06/09/21 06/09/21 22:59 06:59 14:59 Intake Total 200 100 Balance 200 100 Intake: Intake, IV Titration 200 100 Amount Ampicillin-Sulbactam 3 gm 200 100 In Sodium Chloride 0.9% 100 ml @ 200 mls/hr IVPB Q8HR [facility] Rx#:[id number] Other: Voiding Method Bedside Commode # Voids 4 Results - Lab Results Most recent lab results Calcium 9.0 mg/dL (8.7-10.3) 06/09/21 05:11 06/07/21 06:11 06/09/21 05:11 Assessment and Plan Plan: Assessment: 1. Acute kidney injury mostly prerenal secondary to infection. Renal function improving. Creatinine 1.5 today. UA benign. 2. Chronic kidney disease stage IIIB/4 with baseline creatinine near 1.7-1.9 secondary to nephrosclerosis and nonsteroidal use. 3. Hypertension with chronic kidney disease. 4. Lower extremity cellulitis on antibiotics. 5. Diabetes mellitus. Plan: Maintain current antihypertensives. Hold losartan for systolic blood pressure less than 120. Avoid nephrotoxins. Continue to monitor renal function and urine output. Thank you for the consultation. I will continue to follow the patient with you during her hospital stay.
[2021-06-09 11:39] LABS: Glucose,Whole Blood 98 mg/dL (75-99)
[2021-06-09 12:02] VITALS: BP 121/78; RESP 16; TEMP 99.2
--- NOTE | 2021-06-09 13:19 | P.DS ---
Providers Date of admission: 06/03/21 17:49 Expected date of discharge: 06/09/21 Attending physician: Jeet Alaniz MD Consults: 06/04/21 10:14 Consult Physician Routine Consulting Provider: Quang Cope Consult Reason/Comments: cellulitis, antibx. tx Do you want consulting provider notified?: Yes 06/08/21 12:49 Consult Physician Urgent Consulting Provider: Juice Olson Consult Reason/Comments: [email or web address] Do you want consulting provider notified?: Yes Primary care physician: Geneva Maddox Hospital Course: Final Diagnoses: Severe sepsis secondary to bilateral lower extremity cellulitis Acute on chronic hypoxic respiratory failure secondary to the above. Wears 4l nasal cannula at home, qhs. DMII COPD-chronic Bipolar disorder Chronic diastolic CHF History of DVT CKD stage IIIB?4 HTN Hospital course: Jorge Kelsey is a 70 yo F with PMH of COPD, chronic respiratory failure on home O2, bipolar disorder, CKD3, morbid obesity who presented to the ED complaining of increased weakness malaise and shortness of breath. She complains she has been treated for a wound on her leg by her PCP and was given antibiotics a few weeks ago but despite this it has remained red and draining. She feels things have worsened and she is now getting more swelling. She denies fever or chills. On presentation pt febrile, tachycardic and hypoxic. WBC 17k, Cr 2.08, trop negative. CXR no acute process. Pt started on IV steroids, vancomycin, rocephin. 06/05/2021 Maintaining O2 sats in the 90s on 4 L nasal cannula. Maintained on IV antibiotics of Unasyn, Afebrile, preliminary blood cultures reporting no crackles after 24 hours. BUN 36, creatinine 1.81. Denies increased shortness of breath. Denies chest pain, palpitations. Denies pain in legs. 06/06/2021 sitting up in chair, feeling better today. Breathing improving, oxygen requirements decreased, maintaining O2 sats in the 90s on 3 L nasal cannula. Steroids have been discontinued with significant improvement in judith iness. Maintained on Unasyn. Denies chest pain, palpitations or increased shortness of breath. Denies leg pain. BUN 38, creatinine 1.9. WBC trending down. C. difficile ruled out. Maintain wound care and IV antibiotics as per infectious disease with significant clinical improvement. Afebrile, WBC within normal limits. Redness and edema of bilateral lower extremity significantly improved. Currently requiring 2 L nasal cannula continuously to maintain O2 sats in the 90s. Losartan to be held for systolic blood pressures less than 120. Avoid nephrotoxins. Significant clinical improvement , cleared by consults for discharge. Patient will be discharged home today in a stable condition with guarded prognosis. The impression and plan of care has been dictated as directed. : I performed a history and examination of this patient, discussed the same with the dictator. I agree with the dictator's note ,documented as a scribe. Any additional findings or plans will be noted. Patient Condition at Discharge: Stable Plan - Discharge Summary Discharge Rx Participant: No New Discharge Prescriptions: New Amoxic-Pot Clav 875-125Mg [Augmentin 875-125] 1 tab PO Q12HR 7 Days #14 tab Ipratropium-Albuterol Nebulize [Duoneb 0.5 mg-3 mg/3 ml Soln] 3 ml INHALATION QID #120 ml Continue buPROPion HCL [Wellbutrin XL] 300 mg PO DAILY Simvastatin [Zocor] 40 mg PO HS Multivitamins, Thera [Multivitamin (formulary)] 1 tab PO DAILY Ascorbic Acid [Vitamin C] 500 mg PO DAILY Mirabegron [Myrbetriq] 50 mg PO DAILY ARIPiprazole [Abilify] 20 mg PO DAILY Semaglutide [Ozempic] 0.5 mg SQ MO Vitamin E [Vitamin E (1000 Iu = 450 MG)] 1,000 unit PO DAILY Cholecalciferol [Vitamin D3 (25 Mcg = 1000 Iu)] 25 mcg PO DAILY Tolterodine Tartrate [Tolterodine Tartrate ER] 4 mg PO DAILY SILVER sulfADIAZINE CREAM [Silvadene Cream] 1 applic TOPICAL BID Famotidine 40 mg PO DAILY DULoxetine HCL [Cymbalta] 60 mg PO DAILY Losartan [Cozaar] 50 mg PO DAILY #0 Rivaroxaban [Xarelto] 20 mg PO W/SUPPER Spironolactone 50 mg PO DAILY Brexpiprazole [Rexulti] 3 mg PO DAILY hydroCHLOROthiazide 25 mg PO DAILY Gabapentin 600 mg PO BID PRN PRN Reason: Pain Umeclidinium Brm/Vilanterol Tr [Anoro Ellipta 62.5-25 Mcg INH] 1 puff INHA LATION RT-BID Discontinued metOLazone [Zaroxolyn] 2.5 mg PO MOFR Discharge Medication List Simvastatin [Zocor] 40 mg PO HS 06/23/13 [History] buPROPion HCL [Wellbutrin XL] 300 mg PO DAILY 06/23/13 [History] Ascorbic Acid [Vitamin C] 500 mg PO DAILY 07/30/17 [History] Mirabegron [Myrbetriq] 50 mg PO DAILY 07/30/17 [History] Multivitamins, Thera [Multivitamin (formulary)] 1 tab PO DAILY 07/30/17 [History] ARIPiprazole [Abilify] 20 mg PO DAILY 08/10/17 [History] Brexpiprazole [Rexulti] 3 mg PO DAILY 06/03/21 [History] Cholecalciferol [Vitamin D3 (25 Mcg = 1000 Iu)] 25 mcg PO DAILY 06/03/21 [History] DULoxetine HCL [Cymbalta] 60 mg PO DAILY 06/03/21 [History] Famotidine 40 mg PO DAILY 06/03/21 [History] Gabapentin 600 mg PO BID PRN 06/03/21 [History] Rivaroxaban [Xarelto] 20 mg PO W/SUPPER 06/03/21 [History] SILVER sulfADIAZINE CREAM [Silvadene Cream] 1 applic TOPICAL BID 06/03/21 [History] Semaglutide [Ozempic] 0.5 mg SQ MO 06/03/21 [History] Spironolactone 50 mg PO DAILY 06/03/21 [History] Tolterodine Tartrate [Tolterodine Tartrate ER] 4 mg PO DAILY 06/03/21 [History] Umeclidinium Brm/Vilanterol Tr [Anoro Ellipta 62.5-25 Mcg INH] 1 puff INHALATION RT-BID 06/03/21 [History] Vitamin E [Vitamin E (1000 Iu = 450 MG)] 1,000 unit PO DAILY 06/03/21 [History] hydroCHLOROthiazide 25 mg PO DAILY 06/03/21 [History] Amoxic-Pot Clav 875-125Mg [Augmentin 875-125] 1 tab PO Q12HR 7 Days #14 tab 06/09/21 [Rx] Ipratropium-Albuterol Nebulize [Duoneb 0.5 mg-3 mg/3 ml Soln] 3 ml INHALATION QID #120 ml 06/09/21 [Rx] Losartan [Cozaar] 50 mg PO DAILY #0 06/09/21 [Rx] Follow up Appointment(s)/Referral(s): Jeet Alaniz MD [STAFF PHYSICIAN] - 06/12/21 9:00 am (You will be seen in the [facility] office with Debra.) Juice Olson DO [STAFF PHYSICIAN] - 07/09/21 10:20 am Emilio Blue MD [STAFF PHYSICIAN] - 06/17/21 11:30 am [facility] Visiting Nurse, [NON-STAFF] - 1 Week Ambulatory/Diagnostic Orders: Basic Metabolic Panel [LAB.AMB] Time Frame: 3 Days, Location: None Selected Patient Instructions/Handouts: Amoxicillin/Clavulanate Potassium (By mouth), Ipratropium/Albuterol (By breathing), Cellulitis (GEN), COPD (Chronic Obstructive Pulmonary Disease) (DC) Activity/Diet/Wound Care/Special Instructions: Patient has a nebulizer at home and an oxygen concentrator (only wears oxygen at night at home) Daily wound care with Aquacell silver to left upper calf open area and Eucerin cream to dry areas bilateral lower legs then wrap with gauze and Alfonso wraps as previously recommended per Infectious disease doctor Discharge/Stand Alone Forms: Who Do I Call?, Help In The Home
[2021-06-09 13:27] VITALS: PULSE 94
== END 2021-06-09 13:35 | disposition home health service (06) | DRG 871 ==
LOC: EC 15:37 → 5NMEDONC 17:49
PROVIDERS: ADMIT Family Medicine; ATTEND Family Medicine
DX: A41.9 Sepsis, unspecified organism (principal); J96.21 Acute and chronic respiratory failure with hypoxia; N17.0 Acute kidney failure with tubular necrosis; Z68.42 Body mass index [BMI] 45.0-49.9, adult; I13.0 Hypertensive heart and chronic kidney disease with heart failure and stage 1 through stage 4 chronic kidney disease, or unspecified chronic kidney disease; I50.32 Chronic diastolic (congestive) heart failure; J44.1 Chronic obstructive pulmonary disease with (acute) exacerbation; L03.116 Cellulitis of left lower limb; L03.115 Cellulitis of right lower limb; L97.929 Non-pressure chronic ulcer of unspecified part of left lower leg with unspecified severity; E03.9 Hypothyroidism, unspecified; E11.22 Type 2 diabetes mellitus with diabetic chronic kidney disease; E66.01 Morbid (severe) obesity due to excess calories; Z20.822 Contact with and (suspected) exposure to COVID-19; E78.5 Hyperlipidemia, unspecified; F31.9 Bipolar disorder, unspecified; G25.81 Restless legs syndrome; I34.1 Nonrheumatic mitral (valve) prolapse; E13.628 Other specified diabetes mellitus with other skin complications; I95.9 Hypotension, unspecified; E11.40 Type 2 diabetes mellitus with diabetic neuropathy, unspecified; N18.32 Chronic kidney disease, stage 3b; M54.9 Dorsalgia, unspecified; E07.9 Disorder of thyroid, unspecified; G89.29 Other chronic pain; R65.20 Severe sepsis without septic shock; M10.9 Gout, unspecified; M19.90 Unspecified osteoarthritis, unspecified site; T39.395A Adverse effect of other nonsteroidal anti-inflammatory drugs [NSAID], initial encounter; Z91.81 History of falling; M41.9 Scoliosis, unspecified; Z79.01 Long term (current) use of anticoagulants; Z79.890 Hormone replacement therapy; K21.9 Gastro-esophageal reflux disease without esophagitis; Z79.899 Other long term (current) drug therapy; Z80.3 Family history of malignant neoplasm of breast; Z86.711 Personal history of pulmonary embolism; Z86.718 Personal history of other venous thrombosis and embolism; Z87.891 Personal history of nicotine dependence; Z90.710 Acquired absence of both cervix and uterus; Z99.81 Dependence on supplemental oxygen; Z98.42 Cataract extraction status, left eye; Z98.41 Cataract extraction status, right eye; Z96.1 Presence of intraocular lens; Z90.49 Acquired absence of other specified parts of digestive tract; Z98.890 Other specified postprocedural states; Z83.6 Family history of other diseases of the respiratory system
CPT/HCPCS: 36415; 71046; 80048; 80053; 81003; 83036; 83605; 83880; 84484; 85025; 85610; 85730; 87040; 87324; 87635; 93005; 94640; 94760; 96365; 96366; 96367; 96375; 96376; 99291

== ENCOUNTER 2021-08-25 10:04 | Inpatient (IN) | payer MEDICARE ==
[2021-08-25] MEDS ORDERED: ACETAMINOPHEN TAB 500 MG TAB PO STA (10:45)
--- NOTE | 2021-08-25 11:17 | XR ---
EXAMINATION TYPE: XR chest 2V DATE OF EXAM: 08/25/2021 COMPARISON: 06/03/2021 TECHNIQUE: PA and lateral views submitted. HISTORY: Shortness of breath FINDINGS: Arthropathy of the AC joints. Limited inspiration with bilateral diffuse increased interstitial patte rn. Heart size normal. No pneumothorax or pleural effusion. Degenerative changes of the spine. IMPRESSION: 1. Correlate for chronic interstitial lung disease.
[2021-08-25] MEDS: SODIUM CHLORIDE 0.9% 500 ML 500 ML IV SCH ×2 (11:20→12:36)
[2021-08-25 11:37] LABS: Basophils % (A) 0 %; Eosinophils # (A) 0.3 k/uL (0-0.7); Eosinophils % (A) 1 %; HCT 40.6 % (34.0-46.0); HGB 12.7 gm/dL (11.4-16.0); Hypochromasia Slight; Lymphocytes # (A) 0.2 k/uL (1.0-4.8); Lymphocytes % (A) 1 %; MCH 29.2 pg (25.0-35.0); MCHC 31.3 g/dL (31.0-37.0); MCV 93.5 fL (80.0-100.0); Mean Platelet Volume 8.5; Monocytes # (A) 0.7 k/uL (0-1.0); Monocytes % (A) 4 %; Neutrophils % (A) 94 %; Platelet Count 252 k/uL (150-450); RBC 4.35 m/uL (3.80-5.40); RDW 15.3 % (11.5-15.5); WBC 19.3 k/uL (3.8-10.6)
--- NOTE | 2021-08-25 11:44 | ED ---
Altered Mental Status HPI - General Chief Complaint: Altered Mental Status Stated Complaint: poss sepsis Time Seen by Provider: 08/25/21 10:07 Source: patient, EMS, RN notes reviewed Mode of arrival: EMS Limitations: no limitations - History of Present Illness Initial Comments: This a 70-year-old female presents emergency Department chief complaint of a feeling well, shaking, confusion. Patient is currently at [facility] in which she has a right calcaneus fracture, cellulitis. Patient is being closely monitored during which patient's started having shaking episodes morning, claims she didn't feel well and some confusion. room states that she was at her baseline yesterday but states that she is currently being treated for cellulitis of her lower extremity, ulcers and decubitus sore. Patient denies any specific complaints upon asking. Patient denies any chest pain she is not having reported a cough no reported sick contacts. She denies any chest pain or abdominal pain. - Related Data Home Medications Medication Instructions Recorded Confirmed Simvastatin [Zocor] 40 mg PO DAILY 06/23/13 08/25/21 buPROPion HCL [Wellbutrin XL] 300 mg PO HS 06/23/13 08/25/21 Mirabegron [Myrbetriq] 50 mg PO DAILY 07/30/17 08/25/21 Multivitamins, Thera [Multivitamin 1 tab PO DAILY 07/30/17 08/25/21 (formulary)] ARIPiprazole [Abilify] 20 mg PO DAILY 08/10/17 08/25/21 Brexpiprazole [Rexulti] 3 mg PO DAILY 06/03/21 08/25/21 DULoxetine HCL [Cymbalta] 60 mg PO HS 06/03/21 08/25/21 Famotidine 40 mg PO DAILY 06/03/21 08/25/21 Gabapentin 600 mg PO TID PRN 06/03/21 08/25/21 Rivaroxaban [Xarelto] 20 mg PO W/SUPPER 06/03/21 08/25/21 Spironolactone 50 mg PO DAILY 06/03/21 08/25/21 Tolterodine Tartrate [Tolterodine 4 mg PO DAILY 06/03/21 08/25/21 Tartrate ER] hydroCHLOROthiazide 25 mg PO DAILY 06/03/21 08/25/21 Collagenase [Santyl Ointment] 1 applic TOPICAL DAILY 08/25/21 08/25/21 Ergocalciferol [Vitamin D2 (1250 1,250 mcg PO MO 08/25/21 08/25/21 Mcg = 45122 Iu)] Liquacel 30 ml PO BID 08/25/21 08/25/21 Magnesium Hydroxide [Milk of 7,200 mg PO DAILY PRN 08/25/21 08/25/21 Magnesia Concentrate] Na Phos,M-B/Na Phos,Di-Ba [Fleet 133 ml RECTAL DAILY PRN 08/25/21 08/25/21 Adult] Vitamin E (Dl,Tocopheryl Acet) 400 unit PO DAILY 08/25/21 08/25/21 [Vitamin E (400 Iu = 180 mg)] bisacodyL [Dulcolax] 10 mg RECTAL DAILY PRN 08/25/21 08/25/21 Previous Rx's Medication Instructions Recorded Losartan [Cozaar] 50 mg PO DAILY #0 06/09/21 Allergies Allergy/AdvReac Type Severity Reaction Status Date / Time morphine Allergy Unknown Verified 08/25/21 13:21 Review of Systems ROS Statement: Those systems with pertinent positive or pertinent negative responses have been documented in the HPI. ROS Other: All systems not noted in ROS Statement are negative. Past Medical History Past Medical History: Asthma, COPD, Diabetes Mellitus, Deep Vein Thrombosis (DVT), GERD/Reflux, Hyperlipidemia, Hypertension, Mitral Valve Prolapse (MVP), Osteoarthritis (OA), Pneumonia, Pulmonary Embolus (PE), Thyroid Disorder Additional Past Medical History / Comment(s): Recent diagnosis of bilateral cellulitis, chronic bilateral leg edema, RLS, bilateral PEs/R leg DVT after back surgery, MVP, NIDDM diet controlled, chronic head tremors, gout, neuropathy bilateral feet, chronic low back pain. History of Any Multi-Drug Resistant Organisms: None Reported Past Surgical History: Back Surgery, Breast Surgery, Cholecystectomy, Heart Catheterization, Hernia Repair, Hysterectomy, Joint Replacement Additional Past Surgical History / Comment(s): spinal surgery with screws and metal plate, jennifer breast reduction, RT CHRISTIANO, COLONOSCOPY, BILAT CATARACTS REMOVED WITH LENS IMPLANTS, bladder suspension x2, hiatal hernia repair Past Anesthesia/Blood Transfusion Reactions: No Reported Reaction Past Psychological History: Bipolar, Depression Smoking Status: Former smoker Past Alcohol Use History: None Reported Past Drug Use History: None Reported - Past Family History Mother Family Medical History: Cancer Additional Family Medical History / Comment(s): breast cancer Father Family Medical History: No Reported History Additional Family Medical History / Comment(s): Father was healthy General Exam Limitations: no limitations, altered mental status General appearance: alert, in no apparent distress Head exam: Present: atraumatic, normocephalic, normal inspection Eye exam: Present: normal appearance, PERRL, EOMI. Absent: scleral icterus, conjunctival injection, periorbital swelling ENT exam: Present: normal exam, mucous membranes moist Neck exam: Present: normal inspection. Absent: tenderness, meningismus, lymphadenopathy Respiratory exam: Present: normal lung sounds bilaterally. Absent: respiratory distress, wheezes, rales, rhonchi, stridor Cardiovascular Exam: Present: regular rate, normal rhythm, normal heart sounds. Absent: systolic murmur, diastolic murmur, rubs, gallop, clicks GI/Abdominal exam: Present: soft, normal bowel sounds. Absent: distended, tenderness, guarding, rebound, rigid Extremities exam: Present: other (Refill less than 2 seconds of all digits, there is erythema and excoriations a left lower extremity right lower extremity splinted short splint) Neurological exam: Present: alert. Absent: oriented X3 Skin exam: Present: warm, dry, intact, normal color. Absent: rash Course Vital Signs 08/25/21 08/25/21 08/25/21 10:07 11:35 13:00 Temperature 102.1 F H 99.3 F Pulse Rate 75 95 96 Respiratory 28 H 18 20 Rate Blood Pressure 141/78 142/99 133/66 O2 Sat by Pulse 96 98 96 Oximetry 08/25/21 14:00 Temperature 99.1 F Pulse Rate 96 Respiratory 24 Rate Blood Pressure 118/59 O2 Sat by Pulse 93 L Oximetry Medical Decision Making - Medical Decision Making 7-year-old female presented from for fever, shaking chills, altered mental status. Patient on have significant leukocytosis, negative urinalysis, negative chest x-ray. Patient does have notable sores, left leg cellulitis. Patient started on antibiotics - Lab Data Result diagrams: 08/25/21 11:17 08/25/21 11:17 Lab Results 08/25/21 08/25/21 08/25/21 Range/Units 11:17 11:17 11:17 WBC 19.3 H (3.8-10.6) k/uL RBC 4.35 (3.80-5.40) m/uL Hgb 12.7 (11.4-16.0) gm/dL Hct 40.6 (34.0-46.0) % MCV 93.5 (80.0-100.0) fL MCH 29.2 (25.0-35.0) pg MCHC 31.3 (31.0-37.0) g/dL RDW 15.3 (11.5-15.5) % Plt Count 252 (150-450) k/uL MPV 8.5 Neutrophils % 94 % Lymphocytes % 1 % Monocytes % 4 % Eosinophils % 1 % Basophils % 0 % Neutrophils # 18.0 H (1.3-7.7) k/uL Lymphocytes # 0.2 L (1.0-4.8) k/uL Monocytes # 0.7 (0-1.0) k/uL Eosinophils # 0.3 (0-0.7) k/uL Basophils # 0.0 (0-0.2) k/uL Hypochromasia Slight PT 10.7 (9.0-12.0) sec INR 1.0 (<1.2) APTT 25.8 (22.0-30.0) sec Sodium 137 (137-145) mmol/L Potassium 5.7 H (3.5-5.1) mmol/L Chloride 105 (98-107) mmol/L Carbon Dioxide 26 (22-30) mmol/L Anion Gap 6 mmol/L BUN 45 H (7-17) mg/dL Creatinine 1.69 H (0.52-1.04) mg/dL Est GFR (CKD-EPI)AfAm 35 (>60 ml/min/1.73 sqM) Est GFR (CKD-EPI)NonAf 30 (>60 ml/min/1.73 sqM) Glucose 126 H (74-99) mg/dL Plasma Lactic Acid Wenceslao (0.7-2.0) mmol/L Calcium 9.3 (8.4-10.2) mg/dL Total Bilirubin 0.9 (0.2-1.3) mg/dL AST 25 (14-36) U/L ALT 24 (4-34) U/L Alkaline Phosphatase 106 (38-126) U/L Total Protein 6.3 (6.3-8.2) g/dL Albumin 3.7 (3.5-5.0) g/dL Urine Color Urine Appearance (Clear) Urine pH (5.0-8.0) Ur Specific [place] (1.001-1.035) Urine Protein (Negative) Urine Glucose (UA) (Negative) Urine Ketones (Negative) Urine Blood (Negative) Urine Nitrite (Negative) Urine Bilirubin (Negative) Urine Urobilinogen (<2.0) mg/dL Ur Leukocyte Esterase (Negative) Urine RBC (0-5) /hpf Urine WBC (0-5) /hpf Ur Squamous Epith Cells (0-4) /hpf Hyaline Casts (0-2) /lpf Urine Mucus (None) /hpf Coronavirus (PCR) (Not Detectd) Influenza Type A RNA (Not Detectd) Influenza Type B (PCR) (Not Detectd) 08/25/21 08/25/21 08/25/21 Range/Units 11:17 11:17 12:23 WBC (3.8-10.6) k/uL RBC (3.80-5.40) m/uL Hgb (11.4-16.0) gm/dL Hct (34.0-46.0) % MCV (80.0-100.0) fL MCH (25.0-35.0) pg MCHC (31.0-37.0) g/dL RDW (11.5-15.5) % Plt Count (150-450) k/uL MPV Neutrophils % % Lymphocytes % % Monocytes % % Eosinophils % % Basophils % % Neutrophils # (1.3-7.7) k/uL Lymphocytes # (1.0-4.8) k/uL Monocytes # (0-1.0) k/uL Eosinophils # (0-0.7) k/uL Basophils # (0-0.2) k/uL Hypochromasia PT (9.0-12.0) sec INR (<1.2) APTT (22.0-30.0) sec Sodium (137-145) mmol/L Potassium (3.5-5.1) mmol/L Chloride (98-107) mmol/L Carbon Dioxide (22-30) mmol/L Anion Gap mmol/L BUN (7-17) mg/dL Creatinine (0.52-1.04) mg/dL Est GFR (CKD-EPI)AfAm (>60 ml/min/1.73 sqM) Est GFR (CKD-EPI)NonAf (>60 ml/min/1.73 sqM) Glucose (74-99) mg/dL Plasma Lactic Acid Wenceslao 1.3 (0.7-2.0) mmol/L Calcium (8.4-10.2) mg/dL Total Bilirubin (0.2-1.3) mg/dL AST (14-36) U/L ALT (4-34) U/L Alkaline Phosphatase (38-126) U/L Total Protein (6.3-8.2) g/dL Albumin (3.5-5.0) g/dL Urine Color Urine Appearance (Clear) Urine pH (5.0-8.0) Ur Specific [place] (1.001-1.035) Urine Protein (Negative) Urine Glucose (UA) (Negative) Urine Ketones (Negative) Urine Blood (Negative) Urine Nitrite (Negative) Urine Bilirubin (Negative) Urine Urobilinogen (<2.0) mg/dL Ur Leukocyte Esterase (Negative) Urine RBC (0-5) /hpf Urine WBC (0-5) /hpf Ur Squamous Epith Cells (0-4) /hpf Hyaline Casts (0-2) /lpf Urine Mucus (None) /hpf Coronavirus (PCR) Not Detected (Not Detectd) Influenza Type A RNA Not Detected (Not Detectd) Influenza Type B (PCR) Not Detected (Not Detectd) 08/25/21 Range/Units 13:55 WBC (3.8-10.6) k/uL RBC (3.80-5.40) m/uL Hgb (11.4-16.0) gm/dL Hct (34.0-46.0) % MCV (80.0-100.0) fL MCH (25.0-35.0) pg MCHC (31.0-37.0) g/dL RDW (11.5-15.5) % Plt Count (150-450) k/uL MPV Neutrophils % % Lymphocytes % % Monocytes % % Eosinophils % % Basophils % % Neutrophils # (1.3-7.7) k/uL Lymphocytes # (1.0-4.8) k/uL Monocytes # (0-1.0) k/uL Eosinophils # (0-0.7) k/uL Basophils # (0-0.2) k/uL Hypochromasia PT (9.0-12.0) sec INR (<1.2) APTT (22.0-30.0) sec Sodium (137-145) mmol/L Potassium (3.5-5.1) mmol/L Chloride (98-107) mmol/L Carbon Dioxide (22-30) mmol/L Anion Gap mmol/L BUN (7-17) mg/dL Creatinine (0.52-1.04) mg/dL Est GFR (CKD-EPI)AfAm (>60 ml/min/1.73 sqM) Est GFR (CKD-EPI)NonAf (>60 ml/min/1.73 sqM) Glucose (74-99) mg/dL Plasma Lactic Acid Wenceslao (0.7-2.0) mmol/L Calcium (8.4-10.2) mg/dL Total Bilirubin (0.2-1.3) mg/dL AST (14-36) U/L ALT (4-34) U/L Alkaline Phosphatase (38-126) U/L Total Protein (6.3-8.2) g/dL Albumin (3.5-5.0) g/dL Urine Color Yellow Urine Appearance Clear (Clear) Urine pH 5.5 (5.0-8.0) Ur Specific [place] 1.019 (1.001-1.035) Urine Protein Negative (Negative) Urine Glucose (UA) Negative (Negative) Urine Ketones Negative (Negative) Urine Blood Negative (Negative) Urine Nitrite Negative (Negative) Urine Bilirubin Negative (Negative) Urine Urobilinogen <2.0 (<2.0) mg/dL Ur Leukocyte Esterase Small H (Negative) Urine RBC 1 (0-5) /hpf Urine WBC 5 (0-5) /hpf Ur Squamous Epith Cells <1 (0-4) /hpf Hyaline Casts 1 (0-2) /lpf Urine Mucus Few H (None) /hpf Coronavirus (PCR) (Not Detectd) Influenza Type A RNA (Not Detectd) Influenza Type B (PCR) (Not Detectd) - EKG Data -: EKG Interpreted by Me EKG Comments: EKG performed at 11:29 sinus sec cardiorenal 100 IA 164 QRS 93 QT/QTC 322/379 Disposition Clinical Impression: Sepsis, Left leg cellulitis Disposition: ADMITTED IP TO THIS HOSP Condition: Fair Referrals: Geneva Maddox DO [Primary Care Provider] - 1-2 days Time of Disposition: 14:41
[2021-08-25 11:52] LABS: Albumin 3.7 g/dL (3.5-5.0); Calcium 9.3 mg/dL (8.4-10.2); Potassium 5.7 mmol/L (3.5-5.1); Total Bilirubin 0.9 mg/dL (0.2-1.3); Total Protein 6.3 g/dL (6.3-8.2)
[2021-08-25 12:17] LABS: Partial Thromboplastin Time 25.8 sec (22.0-30.0); Prothrombin Time 10.7 sec (9.0-12.0)
[2021-08-25 14:16] LABS: Appearance,Urine Clear (Clear); Bilirubin,Urine Negative (Negative); Blood,Urine Negative (Negative); Color,Urine Yellow; Glucose,Urine (UA) Negative (Negative); Hyaline Casts,Urine 1 /lpf (0-2); Ketones,Urine Negative (Negative); Leukocyte Esterase,Urine Small (Negative); Mucus,Urine Few /hpf; Nitrite,Urine Negative (Negative); PH, Urine 5.5 (5.0-8.0); Protein,Urine Negative (Negative); RBC,Urine 1 /hpf (0-5); Specific Gravity,Urine 1.019 (1.001-1.035); Squamous Epithelial Cell,Urine <1 /hpf (0-4); Urobilinogen,Urine <2.0 mg/dL (<2.0); WBC,Urine 5 /hpf (0-5)
[2021-08-25] MEDS ORDERED: AMPICILLIN-SULBACTAM 3 GM in SODIUM CHLORIDE 0.9% 100 ML IVPB STA (14:29)
[2021-08-25] MEDS ORDERED: ONDANSETRON 4 MG/2 ML VIAL IVP PRN (14:42)
[2021-08-25] MEDS ORDERED: NALOXONE 0.4 MG/ML 1 ML VIAL IV PRN (14:42)
[2021-08-25] MEDS ORDERED: MAGNESIUM HYDROXIDE 2,400 MG/10 ML CUP PO PRN (14:43)
[2021-08-25] MEDS ORDERED: bisacodyL 10 MG SUPP RECTAL PRN (14:43)
[2021-08-25] MEDS: SODIUM CHLORIDE 0.9% 1,000 ML IV SCH (15:00)
[2021-08-25 18:16] LABS: Glucose,Whole Blood 104 mg/dL (70-110)
--- NOTE | 2021-08-25 22:08 | P.CONS ---
History of Present Illness - Reason for Consult Consult date: 08/25/21 - History of Present Illness Patient is a 70-year-old female who recently did have a trauma fall with resultant right calcaneus fracture for the patient is an splint immobilizer and has been at the [facility] the patient has been sent to the ER this morning after apparently the patient was not feeling well did have shaking chills and confusion the patient denies having any headache or any URI symptoms denies having any chest pain or shortness of breath did have some chronic cough no change in the pattern or any sputum production denies any abdominal pain or any diarrhea patient on presentation to the hospital did have a temperature of 102.1 F patient did have white count of 19.3 with a left shift BUN and creatinine is mildly elevated patient urine has been negative influenza and sesay PCR has been negative patient did have a chest x-ray chronic consideration lung disease patient was noticed to have erythema to the left lower extremity concerning for possible cellulitis patient received a dose of cefazolin and Unasyn in the ER patient subsequently has been admitted to the hospital infectious disease was consulted for further management of antibiotic therapy Past Medical History Past Medical History: Asthma, COPD, Diabetes Mellitus, Deep Vein Thrombosis (DVT), GERD/Reflux, Hyperlipidemia, Hypertension, Mitral Valve Prolapse (MVP), Osteoarthritis (OA), Pneumonia, Pulmonary Embolus (PE), Thyroid Disorder Additional Past Medical History / Comment(s): Recent diagnosis of bilateral cellulitis, chronic bilateral leg edema, RLS, bilateral PEs/R leg DVT after back surgery, MVP, NIDDM diet controlled, chronic head tremors, gout, neuropathy bilateral feet, chronic low back pain. History of Any Multi-Drug Resistant Organisms: None Reported Past Surgical History: Back Surgery, Breast Surgery, Cholecystectomy, Heart Catheterization, Hernia Repair, Hysterectomy, Joint Replacement Additional Past Surgical History / Comment(s): spinal surgery with screws and metal plate, jennifer breast reduction, RT CHRISTIANO, COLONOSCOPY, BILAT CATARACTS REMOVED WITH LENS IMPLANTS, bladder suspension x2, hiatal hernia repair Past Anesthesia/Blood Transfusion Reactions: No Reported Reaction Past Psychological History: Bipolar, Depression Smoking Status: Former smoker Past Alcohol Use History: None Reported Past Drug Use History: None Reported - Past Family History Mother Family Medical History: Cancer Additional Family Medical History / Comment(s): breast cancer Father Family Medical History: No Reported History Additional Family Medical History / Comment(s): Father was healthy Medications and Allergies Home Medications Medication Instructions Recorded Confirmed Type Simvastatin [Zocor] 40 mg PO DAILY 06/23/13 08/25/21 History buPROPion HCL [Wellbutrin XL] 300 mg PO HS 06/23/13 08/25/21 History Mirabegron [Myrbetriq] 50 mg PO DAILY 07/30/17 08/25/21 History Multivitamins, Thera [Multivitamin 1 tab PO DAILY 07/30/17 08/25/21 History (formulary)] ARIPiprazole [Abilify] 20 mg PO DAILY 08/10/17 08/25/21 History Brexpiprazole [Rexulti] 3 mg PO DAILY 06/03/21 08/25/21 History DULoxetine HCL [Cymbalta] 60 mg PO HS 06/03/21 08/25/21 History Famotidine 40 mg PO DAILY 06/03/21 08/25/21 History Gabapentin 600 mg PO TID PRN 06/03/21 08/25/21 History Rivaroxaban [Xarelto] 20 mg PO W/SUPPER 06/03/21 08/25/21 History Spironolactone 50 mg PO DAILY 06/03/21 08/25/21 History Tolterodine Tartrate [Tolterodine 4 mg PO DAILY 06/03/21 08/25/21 History Tartrate ER] hydroCHLOROthiazide 25 mg PO DAILY 06/03/21 08/25/21 History Losartan [Cozaar] 50 mg PO DAILY #0 06/09/21 08/25/21 Rx Collagenase [Santyl Ointment] 1 applic TOPICAL DAILY 08/25/21 08/25/21 History Ergocalciferol [Vitamin D2 (1250 1,250 mcg PO MO 08/25/21 08/25/21 History Mcg = 99559 Iu)] Liquacel 30 ml PO BID 08/25/21 08/25/21 History Magnesium Hydroxide [Milk of 7,200 mg PO DAILY PRN 08/25/21 08/25/21 History Magnesia Concentrate] Na Phos,M-B/Na Phos,Di-Ba [Fleet 133 ml RECTAL DAILY PRN 08/25/21 08/25/21 History Adult] Vitamin E (Dl,Tocopheryl Acet) 400 unit PO DAILY 08/25/21 08/25/21 History [Vitamin E (400 Iu = 180 mg)] bisacodyL [Dulcolax] 10 mg RECTAL DAILY PRN 08/25/21 08/25/21 History Allergies Allergy/AdvReac Type Severity Reaction Status Date / Time morphine Allergy Unknown Verified 08/25/21 13:21 Physical Exam Vitals: Vital Signs Temp Pulse Resp BP Pulse Ox 08/25/21 14:55 99.0 F 93 25 H 114/79 95 08/25/21 14:00 99.1 F 96 24 118/59 93 L 08/25/21 13:00 99.3 F 96 20 133/66 96 08/25/21 11:35 95 18 142/99 98 08/25/21 10:07 102.1 F H 75 28 H 141/78 96 Intake and Output 08/25/21 08/25/21 08/25/21 06:59 14:59 22:59 Other: Weight 140.614 kg Results CBC & Chem 7: 08/25/21 11:17 08/25/21 11:17 Labs: Abnormal Lab Results - Last 24 Hours (Table) 08/25/21 08/25/21 08/25/21 Range/Units 11:17 11:17 13:55 WBC 19.3 H (3.8-10.6) k/uL Neutrophils # 18.0 H (1.3-7.7) k/uL Lymphocytes # 0.2 L (1.0-4.8) k/uL Potassium 5.7 H (3.5-5.1) mmol/L BUN 45 H (7-17) mg/dL Creatinine 1.69 H (0.52-1.04) mg/dL Glucose 126 H (74-99) mg/dL Ur Leukocyte Esterase Small H (Negative) Urine Mucus Few H (None) /hpf Assessment and Plan Plan: 1patient presented to hospital with shaking chills confusion in this patient did have sepsis on presentation with fever and elevated white count concerning for possible left lower extremity cellulitis is currently no other obvious focus patient UA is negative chest x-ray did not show pneumonia and abdominal soft on clinical examination patient did have some erythema to the left leg however did not seem to be severe enough to cause of her symptomatology. 2we will obtain a CT of abdominal pelvis with oral contrast to make sure no evidence of any intra-abdominal source. 3we will start the patient on Unasyn 3 g every 6 hours. 4Mark area of the redness to the left leg. We will follow on clinical condition and cultures to further adjust medication if needed Thank you for this consultation will follow this patient along with you Time with Patient: Greater than 30
[2021-08-25] MEDS ORDERED: IOPAMIDOL CONTRAST (ORAL USE) VIAL PO PRN (22:09)
[2021-08-25] MEDS: DULoxetine HCL 60 MG CAPSULE.DR PO SCH (22:33)
[2021-08-25] MEDS: buPROPion XL 300 MG TAB.ER.24H PO SCH (22:33)
[2021-08-25] MEDS: AMPICILLIN-SULBACTAM 3 GM in SODIUM CHLORIDE 0.9% 100 ML IVPB SCH (23:45)
[2021-08-25] MEDS: RIVAROXABAN 20 MG TAB PO SCH (23:45)
[2021-08-25 23:48] LABS: Glucose,Whole Blood 89 mg/dL (70-110)
[2021-08-26] MEDS: SODIUM CHLORIDE 0.9% 1,000 ML IV SCH ×3 (05:17→19:32)
[2021-08-26] MEDS: AMPICILLIN-SULBACTAM 3 GM in SODIUM CHLORIDE 0.9% 100 ML IVPB SCH ×2 (05:29→11:06)
[2021-08-26 07:15] LABS: Glucose,Whole Blood 109 mg/dL (70-110)
--- NOTE | 2021-08-26 08:54 | CT ---
EXAMINATION TYPE: CT abdomen pelvis wo con CT DLP: 2006.2 mGycm, Automated exposure control for dose reduction was used. DATE OF EXAM: 08/26/2021 8:19 AM COMPARISON: No direct comparisons. CLINICAL INDICATION:Female, 70 years old with history of fever; Fever, sepsis , left leg cellulitis TECHNIQUE: Standard CT of the abdomen and pelvis following the administration of oral contrast. Cor onal and sagittal reformats were performed. FINDINGS: Motion limited examination. LOWER CHEST: Punctate left lower lobe calcified granuloma. Right basilar scarring and/or atelectasis. ABDOMEN LIVER: Diffusely hypoattenuating parenchyma. No suspicious lesions within limitation of a noncontrast exam. GALLBLADDER AND BILE DUCTS: The gallbladder is surgically absent. Number ductal dilatation. PANCREAS: Fatty infiltration of the pancreas. SPLEEN: Unremarkable noncontrast appearance. ADRENAL GLANDS: Unremarkable noncontrast appearance. KIDNEYS AND URETERS: No evidence of hydronephrosis or renal calculus. Minimal nonspecific bilateral p erinephric fat stranding. PELVIS BLADDER: Nondistended with Ventura catheter in place. REPRODUCTIVE: Poorly visualized due to streak artifact from right hip prosthesis. ABDOMEN & PELVIS STOMACH AND BOWEL: Small hiatal hernia, duodenum is unremarkable. Long segment circumferential wall t hickening and surrounding fat stranding involving the transverse, descending, and sigmoid colon. No e vidence for pneumatosis or portal venous gas. No pericolonic abscess. No evidence of bowel obstructio n. PERITONEUM: No evidence of pneumoperitoneum or free fluid. VASCULATURE: Mild atherosclerotic calcifications are present throughout the abdominal aorta and its b ranches. No evidence of aortic aneurysm. MUSCULOSKELETAL: No acute osseous abnormalities. Postsurgical changes of right total hip arthroplasty . Atrophy of the right iliopsoas muscle. Postsurgical changes of the lumbar spine with by pedicular s crews and rods and laminectomies involving L4-S1. LYMPH NODES: No gross evidence for lymphadenopathy. SOFT TISSUE/ABDOMINAL WALL: Post surgical changes of the anterior abdominal wall with hernia mesh rep air. IMPRESSION: 1. Long segment colitis involving the transverse, descending, sigmoid colon likely from an infectiou s/inflammatory process. Correlation for C. Difficile is recommended. 2. Hepatic steatosis.
[2021-08-26 08:55] LABS: Appearance,Urine Clear (Clear); Bilirubin,Urine Negative (Negative); Blood,Urine Trace (Negative); Color,Urine Yellow; Glucose,Urine (UA) Negative (Negative); Ketones,Urine Negative (Negative); Leukocyte Esterase,Urine Moderate (Negative); Mucus,Urine Rare /hpf; Nitrite,Urine Negative (Negative); Protein,Urine Trace (Negative); RBC,Urine 4 /hpf (0-5); Specific Gravity,Urine 1.023 (1.001-1.035); Squamous Epithelial Cell,Urine <1 /hpf (0-4); Urobilinogen,Urine <2.0 mg/dL (<2.0); WBC,Urine 11 /hpf (0-5)
[2021-08-26] MEDS: hydroCHLOROthiazide 25 MG TAB PO SCH (09:08)
[2021-08-26] MEDS: SPIRONOLACTONE 25 MG TAB PO SCH (09:08)
[2021-08-26] MEDS: LOSARTAN 50 MG TAB PO SCH (09:08)
[2021-08-26] MEDS: OXYBUTYNIN 10 MG TAB.ER.24 PO SCH (09:08)
[2021-08-26] MEDS: ATORVASTATIN 20 MG TAB PO SCH (09:09)
[2021-08-26] MEDS: BREXPIPRAZOLE 3 MG PO SCH (09:10)
[2021-08-26] MEDS: NON FORMULARY DRUG (Mirabegron [Myrbetriq] 50 MG Tab.Er.24h) PO SCH (09:10)
[2021-08-26] MEDS ORDERED: VANCOMYCIN IV PER PHARMACY 1 EACH MISC MISCELLANE PRN (10:55)
[2021-08-26 11:56] LABS: Glucose,Whole Blood 100 mg/dL (70-110)
[2021-08-26] MEDS ORDERED: VANCOMYCIN 2,000 MG in SODIUM CHLORIDE 0.9% 500 ML 500 ML IVPB SCH (12:00)
[2021-08-26] MEDS: VANCOMYCIN 125 MG CAPSULE PO SCH ×3 (13:42→21:36)
[2021-08-26] MEDS: RIVAROXABAN 20 MG TAB PO SCH (17:02)
[2021-08-26 17:03] LABS: Glucose,Whole Blood 100 mg/dL (70-110)
[2021-08-26 21:05] LABS: Glucose,Whole Blood 126 mg/dL (70-110)
[2021-08-26] MEDS: DULoxetine HCL 60 MG CAPSULE.DR PO SCH (21:36)
[2021-08-26] MEDS: buPROPion XL 300 MG TAB.ER.24H PO SCH (21:36)
[2021-08-27] MEDS: SODIUM CHLORIDE 0.9% 1,000 ML IV SCH ×2 (05:47→15:10)
[2021-08-27 06:57] LABS: Glucose,Whole Blood 105 mg/dL (70-110)
--- NOTE | 2021-08-27 07:22 | P.PN ---
Subjective Progress Note Date: 08/26/21 Principal diagnosis: Fever and bacteremia Patient is a 70-year-old female with a recent history of trauma with resultant right calcaneal fracture for the patient is in the immobilizer and was at a intermediate sent to the ER for evaluation of not feeling well shaking ch ills patient on presentation the hospital was septic with fever elevated white count and is a question of left lower extremity cellulitis, patient also have a CT of abdominal pelvis with a long segment of colitis involving the transverse descending and sigmoid colon concerning for infectious/inflammatory process. On today's evaluation that is 08/26/2021 the patient overall fever pattern has improved patient is slightly more awake alert she is breathing comfortably no chest pain shortness of breath or cough no significant abdominal pain however has been complaining of diarrhea Objective - Vital Signs Vital signs: Vital Signs Temp 98.5 F 08/26/21 07:34 Pulse 86 08/26/21 07:34 Resp 20 08/26/21 07:34 BP 123/69 08/26/21 07:34 Pulse Ox 95 08/26/21 07:34 FiO2 Intake & Output 08/25/21 08/26/21 08/26/21 18:59 06:59 18:59 Intake Total 1080 200 Output Total 825 Balance 255 200 Weight 140.614 kg Intake: Oral 1080 200 Output: Urine 825 Other: Voiding Method Indwelling Catheter # Bowel Movements 1 - Exam GENERAL DESCRIPTION: An elderly female lying in bed in no distress RESPIRATORY SYSTEM: Unlabored breathing , decreased breath sounds at bases HEART: S1 S2 regular rate and rhythm , ABDOMEN: Soft , mild lower abdominal tenderness EXTREMITIES: No edema feet - Labs CBC & Chem 7: 08/25/21 11:17 08/27/21 06:32 Labs: Abnormal Lab Results - Last 24 Hours (Table) 08/25/21 08/25/21 08/25/21 Range/Units 11:17 11:17 13:55 WBC 19.3 H (3.8-10.6) k/uL Neutrophils # 18.0 H (1.3-7.7) k/uL Lymphocytes # 0.2 L (1.0-4.8) k/uL Potassium 5.7 H (3.5-5.1) mmol/L BUN 45 H (7-17) mg/dL Creatinine 1.69 H (0.52-1.04) mg/dL Glucose 126 H (74-99) mg/dL Urine Protein (Negative) Urine Blood (Negative) Ur Leukocyte Esterase Small H (Negative) Urine WBC (0-5) /hpf Urine Mucus Few H (None) /hpf 08/26/21 Range/Units 08:00 WBC (3.8-10.6) k/uL Neutrophils # (1.3-7.7) k/uL Lymphocytes # (1.0-4.8) k/uL Potassium (3.5-5.1) mmol/L BUN (7-17) mg/dL Creatinine (0.52-1.04) mg/dL Glucose (74-99) mg/dL Urine Protein Trace H (Negative) Urine Blood Trace H (Negative) Ur Leukocyte Esterase Moderate H (Negative) Urine WBC 11 H (0-5) /hpf Urine Mucus Rare H (None) /hpf Microbiology - Last 24 Hours (Table) 08/25/21 11:12 Blood Culture Gram Stain - Preliminary Blood 08/25/21 11:12 Blood Culture - Final Blood Assessment and Plan (1) Bacteremia Current Visit: Yes Status: Acute Code(s): R78.81 - BACTEREMIA SNOMED Code(s): 1909662 (2) Left leg cellulitis Current Visit: Yes Status: Acute Code(s): L03.116 - CELLULITIS OF LEFT LOWER LIMB SNOMED Code(s): 654355280 (3) Sepsis Current Visit: Yes Status: Acute Code(s): A41.9 - SEPSIS, UNSPECIFIED ORGANISM SNOMED Code(s): 36916524 Plan: 1patient presented to hospital with shaking chills confusion in this patient did have sepsis on presentation with fever and elevated white count concerning for possible left lower extremity cellulitis , patient also have evidence of gram-positive bacteremia vancomycin will be added blood cultures repeated document clearance of bacteremia 2CT of abdominal pelvis with oral contrast concerning for long segment of colitis and the patient has been complaining of diarrhea questionable C. diff stool for C. diff has been requested will add empiric oral vancomycin while awaiting further workup to be completed Time with Patient: Greater than 30
[2021-08-27] MEDS: VANCOMYCIN 125 MG CAPSULE PO SCH ×4 (07:44→21:05)
[2021-08-27] MEDS: ATORVASTATIN 20 MG TAB PO SCH (07:44)
[2021-08-27] MEDS: hydroCHLOROthiazide 25 MG TAB PO SCH (07:44)
[2021-08-27] MEDS: OXYBUTYNIN 10 MG TAB.ER.24 PO SCH (07:44)
[2021-08-27] MEDS: LOSARTAN 50 MG TAB PO SCH (07:44)
[2021-08-27] MEDS: SPIRONOLACTONE 25 MG TAB PO SCH (07:44)
[2021-08-27] MEDS: NON FORMULARY DRUG (Mirabegron [Myrbetriq] 50 MG Tab.Er.24h) PO SCH (07:47)
[2021-08-27] MEDS: BREXPIPRAZOLE 3 MG PO SCH (07:47)
--- NOTE | 2021-08-27 08:28 | P.HPIM ---
History of Present Illness H&P Date: 08/26/21 Jorge Kelsey is a 70 yo F with PMH of COPD, chronic respiratory failure on home O2, bipolar disorder, CKD3, morbid obesity who presented to the ED from subacute rehab with increasing weakness, shaking, confusion. She was admitted to the hospital approx 6 weeks ago with R calcareous fracture and cellulitis. Pt treated with augmentin at that time and initially did well. The day of admission she was found with confusion and shaking chills. She denies shortness of breath, cough, sore throat or nausea. On presentation pt febrile, tachypneic, WBC 19k, Cr 1.7, Covid negative, flu negative, CXR no acute process. Review of Systems All systems: negative Constitutional: Reports chills, Reports malaise, Reports sweats, Reports weakness, Denies fever Eyes: denies blurred vision, denies pain Ears, nose, mouth and throat: Denies headache, Denies sore throat Cardiovascular: Denies chest pain, Denies shortness of breath Respiratory: Denies cough Gastrointestinal: Denies abdominal pain, Denies diarrhea, Denies nausea, Denies vomiting Genitourinary: Denies dysuria, Denies hematuria Musculoskeletal: Denies myalgias Integumentary: Denies pruritus, Denies rash Neurological: Denies numbness, Denies weakness Psychiatric: Denies anxiety, Denies depression Endocrine: Denies fatigue, Denies weight change Past Medical History Past Medical History: Asthma, COPD, Diabetes Mellitus, Deep Vein Thrombosis (DVT), GERD/Reflux, Hyperlipidemia, Hypertension, Mitral Valve Prolapse (MVP), Osteoarthritis (OA), Pneumonia, Pulmonary Embolus (PE), Thyroid Disorder Additional Past Medical History / Comment(s): Recent diagnosis of bilateral cellulitis, chronic bilateral leg edema, RLS, bilateral PEs/R leg DVT after back surgery, MVP, NIDDM diet controlled, chronic head tremors, gout, neuropathy bilateral feet, chronic low back pain. History of Any Multi-Drug Resistant Organisms: None Reported Past Surgical History: Back Surgery, Breast Surgery, Cholecystectomy, Heart Catheterization, Hernia Repair, Hysterectomy, Joint Replacement Additional Past Surgical History / Comment(s): spinal surgery with screws and metal plate, jennifer breast reduction, RT CHRISTIANO, COLONOSCOPY, BILAT CATARACTS REMOVED WITH LENS IMPLANTS, bladder suspension x2, hiatal hernia repair Past Anesthesia/Blood Transfusion Reactions: No Reported Reaction Past Psychological History: Bipolar, Depression Smoking Status: Former smoker Past Alcohol Use History: None Reported Past Drug Use History: None Reported - Past Family History Mother Family Medical History: Cancer Additional Family Medical History / Comment(s): breast cancer Father Family Medical History: No Reported History Additional Family Medical History / Comment(s): Father was healthy Medications and Allergies Home Medications Medication Instructions Recorded Confirmed Type Simvastatin [Zocor] 40 mg PO DAILY 06/23/13 08/25/21 History buPROPion HCL [Wellbutrin XL] 300 mg PO HS 06/23/13 08/25/21 History Mirabegron [Myrbetriq] 50 mg PO DAILY 07/30/17 08/25/21 History Multivitamins, Thera [Multivitamin 1 tab PO DAILY 07/30/17 08/25/21 History (formulary)] ARIPiprazole [Abilify] 20 mg PO DAILY 08/10/17 08/25/21 History Brexpiprazole [Rexulti] 3 mg PO DAILY 06/03/21 08/25/21 History DULoxetine HCL [Cymbalta] 60 mg PO HS 06/03/21 08/25/21 History Famotidine 40 mg PO DAILY 06/03/21 08/25/21 History Gabapentin 600 mg PO TID PRN 06/03/21 08/25/21 History Rivaroxaban [Xarelto] 20 mg PO W/SUPPER 06/03/21 08/25/21 History Spironolactone 50 mg PO DAILY 06/03/21 08/25/21 History Tolterodine Tartrate [Tolterodine 4 mg PO DAILY 06/03/21 08/25/21 History Tartrate ER] hydroCHLOROthiazide 25 mg PO DAILY 06/03/21 08/25/21 History Losartan [Cozaar] 50 mg PO DAILY #0 06/09/21 08/25/21 Rx Collagenase [Santyl Ointment] 1 applic TOPICAL DAILY 08/25/21 08/25/21 History Ergocalciferol [Vitamin D2 (1250 1,250 mcg PO MO 08/25/21 08/25/21 History Mcg = 50185 Iu)] Liquacel 30 ml PO BID 08/25/21 08/25/21 History Magnesium Hydroxide [Milk of 7,200 mg PO DAILY PRN 08/25/21 08/25/21 History Magnesia Concentrate] Na Phos,M-B/Na Phos,Di-Ba [Fleet 133 ml RECTAL DAILY PRN 08/25/21 08/25/21 History Adult] Vitamin E (Dl,Tocopheryl Acet) 400 unit PO DAILY 08/25/21 08/25/21 History [Vitamin E (400 Iu = 180 mg)] bisacodyL [Dulcolax] 10 mg RECTAL DAILY PRN 08/25/21 08/25/21 History Allergies Allergy/AdvReac Type Severity Reaction Status Date / Time morphine Allergy Unknown Verified 08/25/21 13:21 Physical Exam Vitals: Vital Signs Temp Pulse Resp BP BP BP Pulse Ox 08/26/21 20:00 74 17 08/26/21 19:35 98.1 F 76 17 105/64 94 L 08/26/21 14:00 98.0 F 76 20 123/77 99 08/26/21 07:34 98.5 F 86 20 123/69 95 08/26/21 01:59 98.8 F 92 17 112/70 96 Intake and Output 08/26/21 08/26/21 08/26/21 06:59 14:59 22:59 Intake Total 1080 400 Output Total 825 1200 Balance 255 400 -1200 Intake: Oral 1080 400 Output: Urine 825 1200 Other: Voiding Method Indwelling Catheter Indwelling Catheter Gen: Elderly obese female in NAD HEENT: Normocephalic, atraumatic, mucus membranes moist Neck: supple, no thyromegaly or JVD CV: RRR, no murmur. Pulses 2+ Lungs: Normal effort, clear throughout Abd: soft, nontender non distended Neuro: alert and oriented x3, no focal deficits Skin: erythema to LLE. No fluctuance Results CBC & Chem 7: 08/25/21 11:17 08/27/21 06:32 Labs: Abnormal Lab Results - Last 24 Hours (Table) 08/26/21 08/26/21 08/26/21 Range/Units 06:25 06:25 08:00 POC Glucose (mg/dL) (70-110) mg/dL C-Reactive Protein 15.80 H (0.00-0.80) mg/dL Procalcitonin 0.25 H (0.02-0.09) ng/mL Urine Protein Trace H (Negative) Urine Blood Trace H (Negative) Ur Leukocyte Esterase Moderate H (Negative) Urine WBC 11 H (0-5) /hpf Urine Mucus Rare H (None) /hpf 08/26/21 Range/Units 21:03 POC Glucose (mg/dL) 126 H (70-110) mg/dL C-Reactive Protein (0.00-0.80) mg/dL Procalcitonin (0.02-0.09) ng/mL Urine Protein (Negative) Urine Blood (Negative) Ur Leukocyte Esterase (Negative) Urine WBC (0-5) /hpf Urine Mucus (None) /hpf Microbiology - Last 24 Hours (Table) 08/26/21 08:00 Urine Culture - Preliminary Urine,Voided 08/25/21 10:51 Blood Culture - Preliminary Blood No Growth after 24 hours 08/25/21 11:12 Blood Culture Gram Stain - Preliminary Blood Blood Culture - Preliminary Staphylococcus epidermidis 08/25/21 11:12 Blood Culture - Final Blood Thrombosis Risk Factor Assmnt - Choose All That Apply Any of the Below Risk Factors Present?: Yes Each Factor Represents 1 point: Obesity (BMI >25) Other Risk Factors: Yes Each Risk Factor Represents 2 Points: Age 61-74 years Each Risk Factor Represents 3 Points: History of DVT/PE Thrombosis Risk Factor Assessment Total Risk Factor Score: 6 Thrombosis Risk Factor Assessment Level: High Risk Assessment and Plan Plan: 1. Severe sepsis, suspect cellulitis. Admit, IV unasyn and vancomycin. Nahum redness to LE. Follow blood cultures. ID consult 2. YASSINE secondary to sepsis. IV fluids. Follow renal function 3. HTN. Continue HCTZ 4. Hx PE. Continue xarelto
--- NOTE | 2021-08-27 10:38 | CDI ---
Documentation Clarification Form Date: 08/27/2021 10:15:18 AM From: Dianne Scruggs Admit Date: 08/25/2021 02:28:00 PM Patient Name: Jorge Kelsey Visit Number: [id number] Discharge Date: ATTENTION: The Clinical Documentation Specialists (CDI) and [facility] Coding Staff appreciate your assistance in clarifying documentation. Please respond to the clarification below the line at the bottom and electronically sign. The CDI & [facility] Coding staff will review the response and follow-up if needed. Please note: Queries are made part of the Legal Health Record. If you have any questions, please contact the author of this message via ITS. Dr. Jeet Alaniz A Right buttock pressure ulcer stage 2 is documented by Nursing 08/26/2021, Pressure Injury assessment. Based on this information and the findings below, is there an additional diagnosis that is clinically appropriate for this patient? History/Risk Factors: 70-year-old female presents to the ED via EMS from [facility] for increasing weakness and confusion. Medical history: Hospital admission 6 weeks ago with Right calcaneus fracture and cellulitis non weight bearing. Medical history: Asthma, COPD and HTN. Clinical Indicators: Location: Right buttock Stage 2 Wound description: Moist Erythema Treatment: Turn 2 Q, Absorbent pad Is there an additional diagnosis that is clinically appropriate for this patient? [ YES ] Right Buttock Pressure Ulcer Stage 2 [ ] Other condition, please specify [ ] Unable to determine Clinical Definitions: Stage 1 Pressure Ulcer: intact skin, non-blanching redness of local area Stage 2 Pressure Ulcer: Partial thickness, loss of dermis, pink wound bed Stage 3 Pressure Ulcer: Full thickness tissue loss Stage 4 Pressure Ulcer: Full thickness tissue loss with exposed bone, tendon, or muscle. Unstageable pressure ulcer: Full thickness tissue loss in which the base of the ulcer is covered by slough (yellow, pruitt, quigley, green or brown) and/or eschar (pruitt, brown or black) in the wound bed. (Template Last Revised: April 2020) Right Buttock Pressure Ulcer Stage 2 MTDD
--- NOTE | 2021-08-27 10:39 | CDI ---
Documentation Clarification Form Date: 08/27/2021 10:15:18 AM From: Dianne Scruggs RN CCDS Admit Date: 08/25/2021 02:28:00 PM Patient Name: Jorge Kelsey Visit Number: [id number] Discharge Date: ATTENTION: The Clinical Documentation Specialists (CDI) and [facility] Coding Staff appreciate your assistance in clarifying documentation. Please respond to the clarification below the line at the bottom and electronically sign. The CDI & [facility] Coding staff will review the response and follow-up if needed. Please note: Queries are made part of the Legal Health Record. If you have any questions, please contact the author of this message via ITS. Dr. Jeet Andujar Left buttock pressure ulcer stage 1 is documented by Nursing 08/26/2021, Pressure Injury assessment. Based on this information and the findings below, is there an additional diagnosis that is clinically appropriate for this patient? History/Risk Factors: 70-year-old female presents to the ED via EMS from [facility] for increasing weakness and confusion. Medical history: Hospital admission 6 weeks ago with Right calcaneus fracture and cellulitis non weight bearing. Medical history: Asthma, COPD and HTN. Clinical Indicators: Location: Left Buttock Wound description: Stage 1, warm, dry, tight with erthema Treatment: Turn 2 Q, Absorbent pad Is there an additional diagnosis that is clinically appropriate for this patient? [ YES] Left Buttock Pressure Ulcer Stage 1 [ ] Other condition, please specify [ ] Unable to determine Clinical Definitions: Stage 1 Pressure Ulcer: intact skin, non-blanching redness of local area Stage 2 Pressure Ulcer: Partial thickness, loss of dermis, pink wound bed Stage 3 Pressure Ulcer: Full thickness tissue loss Stage 4 Pressure Ulcer: Full thickness tissue loss with exposed bone, tendon, or muscle. Unstageable pressure ulcer: Full thickness tissue loss in which the base of the ulcer is covered by slough (yellow, pruitt, quigley, green or brown) and/or eschar (pruitt, brown or black) in the wound bed. (Template Last Revised: April 2020) Left Buttock Pressure Ulcer Stage 1 MTDD
[2021-08-27 11:55] LABS: Glucose,Whole Blood 107 mg/dL (70-110)
[2021-08-27 13:10] VITALS: BMI 50.0
[2021-08-27] MEDS ORDERED: VANCOMYCIN 2,000 MG in SODIUM CHLORIDE 0.9% 500 ML 500 ML IVPB SCH (14:00)
[2021-08-27 16:27] LABS: Glucose,Whole Blood 102 mg/dL (70-110)
[2021-08-27] MEDS: RIVAROXABAN 20 MG TAB PO SCH (17:20)
[2021-08-27] MEDS: buPROPion XL 300 MG TAB.ER.24H PO SCH (19:21)
[2021-08-27] MEDS: DULoxetine HCL 60 MG CAPSULE.DR PO SCH (19:21)
[2021-08-27 20:49] LABS: Glucose,Whole Blood 95 mg/dL (70-110)
--- NOTE | 2021-08-27 22:32 | P.PN ---
Subjective Progress Note Date: 08/27/21 She has been afebrile, feeling improved, no chills, diaphoresis. She continues to complain of LLE tenderness. She has not been ambulating or bearing weight due to RLE fracture. 1/3 BC with Staph epidermidis. She denies any further diarrhea since her admission. Objective - Vital Signs Vital signs: Vital Signs Temp 98.1 F 08/27/21 13:41 Pulse 78 08/27/21 13:41 Resp 20 08/27/21 13:41 BP 121/72 08/27/21 13:41 Pulse Ox 95 08/27/21 13:41 FiO2 Intake & Output 08/27/21 08/27/21 08/28/21 06:59 18:59 06:59 Output Total 1200 1200 Balance -1200 -1200 Weight 140.614 kg Output: Urine 1200 1200 Other: Voiding Method Indwelling Catheter Indwelling Catheter # Bowel Movements 2 - Exam Gen: Elderly obese female in NAD CV: RRR, no murmur Lungs: Normal effort, clear throughout Ext: RLE in cast. LLE with mild erythema, and improved tenderness from previous - Labs CBC & Chem 7: 08/25/21 11:17 08/27/21 06:32 Labs: Abnormal Lab Results - Last 24 Hours (Table) 08/27/21 Range/Units 06:32 Creatinine 1.40 H (0.52-1.04) mg/dL Microbiology - Last 24 Hours (Table) 08/26/21 08:00 Urine Culture - Final Urine,Voided 08/26/21 11:47 Blood Culture - Preliminary Blood No Growth after 24 hours 08/25/21 10:51 Blood Culture - Preliminary Blood No Growth after 48 hours 08/25/21 11:12 Blood Culture Gram Stain - Final Blood Blood Culture - Final Staphylococcus epidermidis Assessment and Plan Plan: Continue with current management, continue vancomycin IV and PO. ID following. Repeat blood culture. Suspect contaminant
[2021-08-27] MEDS: GABAPENTIN 300 MG CAP PO PRN (23:26)
[2021-08-28 07:02] LABS: Glucose,Whole Blood 80 mg/dL (70-110)
[2021-08-28] MEDS: SODIUM CHLORIDE 0.9% 1,000 ML IV SCH ×2 (07:56→22:06)
[2021-08-28 10:50] LABS: Basophils # (A) 0.04 X 10*3/uL (0.00-0.10); Basophils % (A) 0.6 %; Eosinophils # (A) 0.84 X 10*3/uL (0.04-0.35); Eosinophils % (A) 12.1 %; HCT 32.8 % (37.2-46.3); Immature Grans, Automated 0.4 %; Lymphocytes # (A) 0.74 X 10*3/uL (0.90-5.00); Lymphocytes % (A) 10.7 %; MCH 28.5 pg (27.0-32.0); MCHC 30.5 g/dL (32.0-37.0); MCV 93.4 fL (80.0-97.0); Mean Platelet Volume 10.8 fL (9.5-12.2); Monocytes # (A) 0.51 X 10*3/uL (0.20-1.00); Monocytes % (A) 7.3 %; NRBC Per 100 WBC 0 /100 WBCS (0.0-0.0); Neutrophils # (A) 4.78 X 10*3/uL (1.80-7.70); Neutrophils % (A) 68.9 %; Platelet Count 217 X 10*3/uL (140-440); RBC 3.51 X 10*6/uL (4.10-5.20); RDW 16.2 % (11.5-14.5); WBC 6.94 X 10*3/uL (4.50-10.00)
[2021-08-28] MEDS: BREXPIPRAZOLE 3 MG PO SCH (10:55)
[2021-08-28] MEDS: NON FORMULARY DRUG (Mirabegron [Myrbetriq] 50 MG Tab.Er.24h) PO SCH (10:55)
[2021-08-28 10:56] LABS: African American GFR (CKD) 47.7 (60.0-200.0); Anion Gap 10.6 mmol/L (10.00-18.00); BUN/Creat Ratio 13.36 Ratio (12.00-20.00); Blood Urea Nitrogen 17.5 mg/dL (9.0-27.0); Calcium 9.1 mg/dL (8.7-10.3); Carbon Dioxide 24.3 mmol/L (20.0-27.5); Non-African American GFR(CKD) 41.2 (60.0-200.0); Potassium 4.4 mmol/L (3.5-5.5)
[2021-08-28] MEDS: SPIRONOLACTONE 25 MG TAB PO SCH (10:56)
[2021-08-28] MEDS: LOSARTAN 50 MG TAB PO SCH (10:58)
[2021-08-28] MEDS: ATORVASTATIN 20 MG TAB PO SCH (10:59)
[2021-08-28] MEDS: hydroCHLOROthiazide 25 MG TAB PO SCH (10:59)
[2021-08-28] MEDS: OXYBUTYNIN 10 MG TAB.ER.24 PO SCH (11:01)
[2021-08-28] MEDS: VANCOMYCIN 125 MG CAPSULE PO SCH (11:22)
[2021-08-28 11:36] LABS: Glucose,Whole Blood 87 mg/dL (70-110)
[2021-08-28] MEDS ORDERED: AMPICILLIN-SULBACTAM 3 GM in SODIUM CHLORIDE 0.9% 100 ML IVPB SCH (12:00)
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
[2021-08-28 16:29] LABS: Glucose,Whole Blood 88 mg/dL (70-110)
[2021-08-28] MEDS: GABAPENTIN 300 MG CAP PO PRN (17:41)
[2021-08-28] MEDS: RIVAROXABAN 20 MG TAB PO SCH (17:41)
[2021-08-28] MEDS: AMPICILLIN-SULBACTAM 3 GM in SODIUM CHLORIDE 0.9% 100 ML IVPB SCH (20:35)
[2021-08-28 21:02] LABS: Glucose,Whole Blood 95 mg/dL (70-110)
[2021-08-28] MEDS: buPROPion XL 300 MG TAB.ER.24H PO SCH (21:39)
[2021-08-28] MEDS: DULoxetine HCL 60 MG CAPSULE.DR PO SCH (21:39)
[2021-08-29] MEDS: AMPICILLIN-SULBACTAM 3 GM in SODIUM CHLORIDE 0.9% 100 ML IVPB SCH ×3 (04:45→20:09)
[2021-08-29 07:14] LABS: Glucose,Whole Blood 96 mg/dL (70-110)
[2021-08-29] MEDS: SPIRONOLACTONE 25 MG TAB PO SCH (07:56)
[2021-08-29] MEDS: hydroCHLOROthiazide 25 MG TAB PO SCH (07:57)
[2021-08-29] MEDS: BREXPIPRAZOLE 3 MG PO SCH (07:57)
[2021-08-29] MEDS: ATORVASTATIN 20 MG TAB PO SCH (07:57)
[2021-08-29] MEDS: LOSARTAN 50 MG TAB PO SCH (07:57)
[2021-08-29] MEDS: OXYBUTYNIN 10 MG TAB.ER.24 PO SCH (07:57)
[2021-08-29] MEDS: NON FORMULARY DRUG (Mirabegron [Myrbetriq] 50 MG Tab.Er.24h) PO SCH (07:58)
--- NOTE | 2021-08-29 08:27 | P.PN ---
Subjective Progress Note Date: 08/28/21 She is feeling better today, no fever, chills, diaphoresis, WBC down to 7k today. She feels her leg tenderness is improved. Complains of loose stool. Repeat blood cultures negative. Objective - Vital Signs Vital signs: Vital Signs Temp 98.4 F 08/29/21 07:49 Pulse 74 08/29/21 07:49 Resp 16 08/29/21 07:49 BP 129/69 08/29/21 07:49 Pulse Ox 94 L 08/29/21 07:49 FiO2 Intake & Output 08/28/21 08/29/21 08/29/21 18:59 06:59 18:59 Output Total 1050 1800 Balance -1050 -1800 Output: Urine 1050 1800 Other: Voiding Method Indwelling Catheter Toilet - Exam Gen: Elderly obese female in NAD CV: RRR, no murmur Lungs: Normal effort, clear throughout Ext: RLE in cast. LLE with mild erythema, and improved tenderness from previous - Labs CBC & Chem 7: 08/28/21 06:55 08/28/21 06:55 Labs: Abnormal Lab Results - Last 24 Hours (Table) 08/28/21 08/28/21 Range/Units 06:55 06:55 RBC 3.51 L (4.10-5.20) X 10*6/uL Hgb 10.0 L (12.0-15.0) g/dL Hct 32.8 L (37.2-46.3) % MCHC 30.5 L (32.0-37.0) g/dL RDW 16.2 H (11.5-14.5) % Lymphocytes # 0.74 L (0.90-5.00) X 10*3/uL Eosinophils # 0.84 H (0.04-0.35) X 10*3/uL Est GFR (CKD-EPI)AfAm 47.7 L (60.0-200.0) Est GFR (CKD-EPI)NonAf 41.2 L (60.0-200.0) Microbiology - Last 24 Hours (Table) 08/26/21 11:47 Blood Culture - Preliminary Blood No Growth after 48 hours 08/25/21 10:51 Blood Culture - Preliminary Blood No Growth after 72 hours Assessment and Plan Plan: Continue with current management, continue vancomycin IV and PO. ID following. C diff PCR. Follow blood cultures
[2021-08-29 10:51] LABS: Basophils # (A) 0.06 X 10*3/uL (0.00-0.10); Basophils % (A) 0.9 %; Eosinophils # (A) 0.77 X 10*3/uL (0.04-0.35); Eosinophils % (A) 12.1 %; HCT 33.4 % (37.2-46.3); HGB 10.3 g/dL (12.0-15.0); Immature Grans, Automated 0.6 %; Lymphocytes # (A) 0.76 X 10*3/uL (0.90-5.00); Lymphocytes % (A) 11.9 %; MCH 28.4 pg (27.0-32.0); MCHC 30.8 g/dL (32.0-37.0); Mean Platelet Volume 10.8 fL (9.5-12.2); Monocytes # (A) 0.54 X 10*3/uL (0.20-1.00); Monocytes % (A) 8.5 %; NRBC Per 100 WBC 0 /100 WBCS (0.0-0.0); Neutrophils # (A) 4.19 X 10*3/uL (1.80-7.70); Platelet Count 219 X 10*3/uL (140-440); RBC 3.63 X 10*6/uL (4.10-5.20); WBC 6.36 X 10*3/uL (4.50-10.00)
[2021-08-29 11:14] LABS: African American GFR (CKD) 48.1 (60.0-200.0); Albumin 3.6 g/dL (3.8-4.9); Albumin/Globulin Ratio 1.8 (1.60-3.17); Anion Gap 10.3 mmol/L (10.00-18.00); BUN/Creat Ratio 11.31 Ratio (12.00-20.00); Blood Urea Nitrogen 14.7 mg/dL (9.0-27.0); Carbon Dioxide 23.7 mmol/L (20.0-27.5); Non-African American GFR(CKD) 41.5 (60.0-200.0); Potassium 4.1 mmol/L (3.5-5.5); Total Bilirubin 0.3 mg/dL (0.30-1.20); Total Protein 5.6 g/dL (6.2-8.2)
[2021-08-29 11:19] LABS: Glucose,Whole Blood 84 mg/dL (70-110)
[2021-08-29 11:35] LABS: C Reactive Protein 3.9 mg/dL (0.00-0.80)
[2021-08-29] MEDS: SODIUM CHLORIDE 0.9% 1,000 ML IV SCH (13:00)
[2021-08-29] MEDS: GABAPENTIN 300 MG CAP PO PRN (15:35)
[2021-08-29 16:13] LABS: Glucose,Whole Blood 116 mg/dL (70-110)
[2021-08-29] MEDS: RIVAROXABAN 20 MG TAB PO SCH (17:56)
[2021-08-29] MEDS: LACTOBACILLUS ACIDOPH & BULGAR 1 EACH PACKET PO SCH (20:09)
[2021-08-29] MEDS: DULoxetine HCL 60 MG CAPSULE.DR PO SCH (20:10)
[2021-08-29] MEDS: buPROPion XL 300 MG TAB.ER.24H PO SCH (20:10)
--- NOTE | 2021-08-29 22:20 | P.PN ---
Subjective Progress Note Date: 08/29/21 She remains afebrile and is responding to abx. She feels the pain in her LLE is diminishing. WBC 6.3 today. C diff PCR negative Objective - Vital Signs Vital signs: Vital Signs Temp 98.8 F 08/29/21 18:54 Pulse 70 08/29/21 18:54 Resp 18 08/29/21 18:54 BP 134/72 08/29/21 18:54 Pulse Ox 98 08/29/21 18:54 FiO2 Intake & Output 08/29/21 08/29/21 08/30/21 06:59 18:59 06:59 Intake Total 120 Output Total 1800 1300 Balance -1800 -1180 Intake: Oral 120 Output: Urine 1800 1300 Other: Voiding Method Toilet Indwelling Catheter Indwelling Catheter - Exam Gen: Elderly obese female in NAD CV: RRR, no murmur Lungs: Normal effort, clear throughout Ext: RLE in cast. LLE with mild erythema, and improved tenderness from previous - Labs CBC & Chem 7: 08/29/21 07:09 08/29/21 07:09 Labs: Abnormal Lab Results - Last 24 Hours (Table) 08/29/21 08/29/21 08/29/21 Range/Units 07:09 07:09 16:12 RBC 3.63 L (4.10-5.20) X 10*6/uL Hgb 10.3 L (12.0-15.0) g/dL Hct 33.4 L (37.2-46.3) % MCHC 30.8 L (32.0-37.0) g/dL RDW 16.0 H (11.5-14.5) % Lymphocytes # 0.76 L (0.90-5.00) X 10*3/uL Eosinophils # 0.77 H (0.04-0.35) X 10*3/uL Est GFR (CKD-EPI)AfAm 48.1 L (60.0-200.0) Est GFR (CKD-EPI)NonAf 41.5 L (60.0-200.0) BUN/Creatinine Ratio 11.31 L (12.00-20.00) Ratio POC Glucose (mg/dL) 116 H (70-110) mg/dL C-Reactive Protein 3.90 H (0.00-0.80) mg/dL Total Protein 5.6 L (6.2-8.2) g/dL Albumin 3.6 L (3.8-4.9) g/dL Microbiology - Last 24 Hours (Table) 08/26/21 11:47 Blood Culture - Preliminary Blood No Growth after 72 hours 08/25/21 10:51 Blood Culture - Preliminary Blood No Growth after 96 hours Assessment and Plan Plan: Switch Vancomycin to unasyn per ID. Probiotic. Discontinue PO vancomycin. Continue with remainder of medications. PT, OT
[2021-08-30] MEDS: AMPICILLIN-SULBACTAM 3 GM in SODIUM CHLORIDE 0.9% 100 ML IVPB SCH ×3 (04:16→20:44)
[2021-08-30] MEDS: SODIUM CHLORIDE 0.9% 1,000 ML IV SCH ×2 (04:17→17:45)
[2021-08-30] MEDS: SPIRONOLACTONE 25 MG TAB PO SCH (08:09)
[2021-08-30] MEDS: hydroCHLOROthiazide 25 MG TAB PO SCH (08:10)
[2021-08-30] MEDS: OXYBUTYNIN 10 MG TAB.ER.24 PO SCH (08:10)
[2021-08-30] MEDS: LOSARTAN 50 MG TAB PO SCH (08:10)
[2021-08-30] MEDS: LACTOBACILLUS ACIDOPH & BULGAR 1 EACH PACKET PO SCH ×2 (08:10→20:44)
[2021-08-30] MEDS: ATORVASTATIN 20 MG TAB PO SCH (08:10)
[2021-08-30] MEDS: BREXPIPRAZOLE 3 MG PO SCH (08:10)
[2021-08-30] MEDS: NON FORMULARY DRUG (Mirabegron [Myrbetriq] 50 MG Tab.Er.24h) PO SCH (08:11)
[2021-08-30] MEDS: GABAPENTIN 300 MG CAP PO PRN (15:03)
[2021-08-30] MEDS: RIVAROXABAN 20 MG TAB PO SCH (17:45)
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
[2021-08-30] MEDS: DULoxetine HCL 60 MG CAPSULE.DR PO SCH (20:44)
[2021-08-30] MEDS: buPROPion XL 300 MG TAB.ER.24H PO SCH (20:44)
[2021-08-31] MEDS: AMPICILLIN-SULBACTAM 3 GM in SODIUM CHLORIDE 0.9% 100 ML IVPB SCH ×3 (03:52→20:55)
[2021-08-31] MEDS: SODIUM CHLORIDE 0.9% 1,000 ML IV SCH (05:14)
[2021-08-31] MEDS: SPIRONOLACTONE 25 MG TAB PO SCH (08:41)
[2021-08-31] MEDS: ATORVASTATIN 20 MG TAB PO SCH (08:41)
[2021-08-31] MEDS: OXYBUTYNIN 10 MG TAB.ER.24 PO SCH (08:41)
[2021-08-31] MEDS: hydroCHLOROthiazide 25 MG TAB PO SCH (08:42)
[2021-08-31] MEDS: BREXPIPRAZOLE 3 MG PO SCH (08:42)
[2021-08-31] MEDS: NON FORMULARY DRUG (Mirabegron [Myrbetriq] 50 MG Tab.Er.24h) PO SCH (08:42)
[2021-08-31] MEDS: LOSARTAN 50 MG TAB PO SCH (08:42)
[2021-08-31] MEDS: LACTOBACILLUS ACIDOPH & BULGAR 1 EACH PACKET PO SCH ×2 (08:42→19:46)
[2021-08-31] MEDS: RIVAROXABAN 20 MG TAB PO SCH (16:55)
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
[2021-08-31] MEDS: buPROPion XL 300 MG TAB.ER.24H PO SCH (19:46)
[2021-08-31] MEDS: DULoxetine HCL 60 MG CAPSULE.DR PO SCH (19:46)
[2021-08-31] MEDS: GABAPENTIN 300 MG CAP PO PRN (19:47)
--- NOTE | 2021-08-31 22:16 | P.PN ---
Subjective Progress Note Date: 08/30/21 Principal diagnosis: Fever and bacteremia 70-year-old female with a recent history of trauma with resultant right calcaneal fracture for the patient is in the immobilizer and was at a residential sent to the ER for evaluation of not feeling well shaking chills patient on presentation the hospital was septic with fever elevated white count and is a question of left lower extremity cellulitis, patient also have a CT of abdominal pelvis with a long segment of colitis involving the transverse descending and sigmoid colon concerning for infectious/inflammatory process. Objective - Vital Signs Vital signs: Vital Signs Temp 97.8 F 08/30/21 07:55 Pulse 74 08/30/21 07:55 Resp 18 08/30/21 07:55 BP 110/70 08/30/21 07:55 Pulse Ox 96 08/30/21 07:55 FiO2 Intake & Output 08/29/21 08/30/21 08/30/21 18:59 06:59 18:59 Intake Total 120 1400 Output Total 1300 1600 Balance -1180 -200 Weight 140.614 kg Intake: Intake, IV Titration 900 Amount Sodium Chloride 0.9% 1, 900 000 ml @ 75 mls/hr IV . [id number] [facility]ENDING [facility] TO [facility] Rx#:[id number] Oral 120 500 Output: Urine 1300 1600 Other: Voiding Method Indwelling Catheter Indwelling Catheter External Catheter - Exam - Constitutional General appearance: Present: average body habitus, cooperative, no acute distress - EENT Eyes: Present: anicteric sclerae, EOMI, PERRLA, normal appearance ENT: Present: hearing grossly normal, normal oropharynx Ears: bilateral: normal - Neck Neck: Present: normal ROM. Absent: lymphadenopathy, rigidity, thyromegaly Carotids: negative: bruit present Thyroid: bilateral: normal size, negative: enlarged, nodule - Respiratory Respiratory: bilateral: CTA, negative: rales, rhonchi, wheezing - Cardiovascular Rhythm: regular Heart sounds: normal: S1, S2 Abnormal Heart Sounds: Absent: systolic murmur, diastolic murmur - Gastrointestinal General gastrointestinal: Present: normal bowel sounds, soft. Absent: distended, organomegaly, tenderness - Genitourinary Genitourinary Comment(s): deferred - Integumentary Integumentary: Present: normal turgor. Absent: jaundiced, rash, ulcer - Neurologic Neurologic: Present: CNII-XII intact. Absent: focal deficits - Musculoskeletal Musculoskeletal: Present: gait normal, strength equal bilaterally - Psychiatric Psychiatric: Present: A&O x's 3, appropriate affect, intact judgment & insight - Labs CBC & Chem 7: 08/29/21 07:09 08/29/21 07:09 Labs: Abnormal Lab Results - Last 24 Hours (Table) 08/29/21 Range/Units 16:12 POC Glucose (mg/dL) 116 H (70-110) mg/dL Microbiology - Last 24 Hours (Table) 08/26/21 11:47 Blood Culture - Preliminary Blood No Growth after 72 hours 08/25/21 10:51 Blood Culture - Preliminary Blood No Growth after 96 hours Assessment and Plan Assessment: 1. Bacteremia 2. Cellulitis left lower extremity 3. Sepsis 4. Acute renal injury; resolved with IV fluid hydration 5. Hypertension; losartan 50 mg daily, Hydrea Diuril 25 mg daily 6. History of PE; remains on Xarelto 7. Urinary incontinence; Ditropan XL 10 mg daily; mirabegron 50 mg daily --- 1patient presented to hospital with shaking chills confusion in this patie nt did have sepsis on presentation with fever and elevated white count concerning for possible left lower extremity cellulitis , patient also have evidence of gram-positive bacteremia , However blood culture has been finalized with staph epi which is more likely skin contaminant repeat blood cultures negative 2CT of abdominal pelvis with oral contrast concerning for long segment of colitis and the patient has been complaining of diarrhea , stool for C. diff came back negative 3-patient seemed to have shown clinical improvement with the Unasyn to continue we will apply Alfonso wrap to the left and keep the swelling down and will finish therapy with a short course of oral Augmentin
--- NOTE | 2021-08-31 22:17 | P.PN ---
Subjective Progress Note Date: 08/31/21 Principal diagnosis: Fever and bacteremia 70-year-old female with a recent history of trauma with resultant right calcaneal fracture for the patient is in the immobilizer and was at a [facility] sent to the ER for evaluation of not feeling well shaking chills patient on presentation the hospital was septic with fever elevated white count and is a question of left lower extremity cellulitis, patient also have a CT of abdominal pelvis with a long segment of colitis involving the transverse descending and sigmoid colon concerning for infectious/inflammatory process. 08/31/2021 the patient remains to be afebrile, the patient is breathing comfortably on nasal cannula oxygen, the patient denies any chest pain shortness of breath or cough no abdominal pain and the patient diarrhea has resolved per the nursing staff, the patient denies pain to the left lower extremity 1patient presented to hospital with shaking chills confusion in this patient did have sepsis on presentation with fever and elevated white count concerning for possible left lower extremity cellulitis , patient also have evidence of gram-positive bacteremia , However blood culture has been finalized with staph epi which is more likely skin contaminant repeat blood cultures negative 2CT of abdominal pelvis with oral contrast concerning for long segment of colitis and the patient has been complaining of diarrhea , stool for C. diff cam e back negative 3-patient seemed to have shown clinical improvement with the Unasyn to continue we will apply Alfonso wrap to the left and keep the swelling down and will finish therapy with a short course of oral Augmentin Objective - Vital Signs Vital signs: Vital Signs Temp 98.4 F 08/31/21 14:00 Pulse 75 08/31/21 14:00 Resp 17 08/31/21 14:00 BP 117/58 08/31/21 14:00 Pulse Ox 94 L 08/31/21 14:00 FiO2 Intake & Output 08/30/21 08/31/21 08/31/21 18:59 06:59 18:59 Intake Total 1045 Output Total 1950 1600 1600 Balance -90 -1600 -1600 Weight 140.614 kg Intake: Intake, IV Titration 925 Amount Sodium Chloride 0.9% 1, 925 000 ml @ 75 mls/hr IV . [id number] [facility] Rx#:[id number] Oral 120 Output: Urine 1950 1600 1600 Other: Voiding Method External Catheter Indwelling Catheter - Exam - Constitutional General appearance: Present: average body habitus, cooperative, no acute distress - EENT Eyes: Present: anicteric sclerae, EOMI, PERRLA, normal appearance ENT: Present: hearing grossly normal, normal oropharynx Ears: bilateral: normal - Neck Neck: Present: normal ROM. Absent: lymphadenopathy, rigidity, thyromegaly Carotids: negative: bruit present Thyroid: bilateral: normal size, negative: enlarged, nodule - Respiratory Respiratory: bilateral: CTA, negative: rales, rhonchi, wheezing - Cardiovascular Rhythm: regular Heart sounds: normal: S1, S2 Abnormal Heart Sounds: Absent: systolic murmur, diastolic murmur - Gastrointestinal General gastrointestinal: Present: normal bowel sounds, soft. Absent: distended, organomegaly, tenderness - Genitourinary Genitourinary Comment(s): deferred - Integumentary Integumentary: Present: normal turgor. Absent: jaundiced, rash, ulcer - Neurologic Neurologic: Present: CNII-XII intact. Absent: focal deficits - Musculoskeletal Musculoskeletal: Present: gait normal, strength equal bilaterally - Psychiatric Psychiatric: Present: A&O x's 3, appropriate affect, intact judgment & insight - Labs CBC & Chem 7: 08/29/21 07:09 08/29/21 07:09 Labs: Microbiology - Last 24 Hours (Table) 08/26/21 11:47 Blood Culture - Preliminary Blood No Growth after 120 hours 08/25/21 10:51 Blood Culture - Final Blood No Growth after 144 hours Assessment and Plan Assessment: 1. Bacteremia 2. Cellulitis left lower extremity 3. Sepsis 4. Acute renal injury; resolved with IV fluid hydration 5. Hypertension; losartan 50 mg daily, Hydrea Diuril 25 mg daily 6. History of PE; remains on Xarelto 7. Urinary incontinence; Ditropan XL 10 mg daily; mirabegron 50 mg daily --- 1patient presented to hospital with shaking chills confusion in this patient did have sepsis on presentation with fever and elevated white count concerning for possible left lower extremity cellulitis , patient also have evidence of gram-positive bacteremia , However blood culture has been finalized with staph epi which is more likely skin contaminant repeat blood cultures negative 2CT of abdominal pelvis with oral contrast concerning for long segment of colitis and the patient has been complaining of diarrhea , stool for C. diff came back negative 3-patient seemed to have shown clinical improvement with the Unasyn to continue we will apply Alfonso wrap to the left and keep the swelling down and will finish therapy with a short course of oral Augmentin
[2021-09-01] MEDS: AMPICILLIN-SULBACTAM 3 GM in SODIUM CHLORIDE 0.9% 100 ML IVPB SCH ×2 (04:13→12:20)
[2021-09-01] MEDS: SODIUM CHLORIDE 0.9% 1,000 ML IV SCH (08:10)
[2021-09-01] MEDS: hydroCHLOROthiazide 25 MG TAB PO SCH (08:15)
[2021-09-01] MEDS: LACTOBACILLUS ACIDOPH & BULGAR 1 EACH PACKET PO SCH (08:15)
[2021-09-01] MEDS: ATORVASTATIN 20 MG TAB PO SCH (08:15)
[2021-09-01] MEDS: LOSARTAN 50 MG TAB PO SCH (08:15)
[2021-09-01] MEDS: SPIRONOLACTONE 25 MG TAB PO SCH (08:15)
[2021-09-01] MEDS: OXYBUTYNIN 10 MG TAB.ER.24 PO SCH (08:16)
[2021-09-01] MEDS: NON FORMULARY DRUG (Mirabegron [Myrbetriq] 50 MG Tab.Er.24h) PO SCH (08:19)
[2021-09-01] MEDS: BREXPIPRAZOLE 3 MG PO SCH (08:19)
[2021-09-01] MEDS ORDERED: ERGOCALCIFEROL 1,250 MCG (50,000 IU) CAPSULE PO SCH (09:00)
[2021-09-01] MEDS ORDERED: FAMOTIDINE 20 MG TAB PO SCH (09:00)
--- NOTE | 2021-09-01 12:26 | P.DS ---
Providers Date of admission: 08/25/21 14:28 Expected date of discharge: 09/01/21 Attending physician: Jeet Alaniz MD Consults: 08/25/21 14:42 Consult Physician Urgent Consulting Provider: Quang Cope Consult Reason/Comments: sepsis Do you want consulting provider notified?: Yes Primary care physician: Geneva Maddox [facility] Course: Jorge Kelsey is a 70 yo F with PMH of COPD, chronic respiratory failure on home O2, bipolar disorder, CKD3, morbid obesity who presented to the ED from subacute rehab with increasing weakness, shaking, confusion. She was admitted to the hospital approx 6 weeks ago with R calcareous fracture and cellulitis. Pt treated with augmentin at that time and initially did well. The day of admission she was found with confusion and shaking chills. She denies shortness of breath, cough, sore throat or nausea. On presentation pt febrile, tachypneic, WBC 19k, Cr 1.7, Covid negative, flu negative, CXR no acute process. Pt admitted to medicine, seen by ID. Started on PO and IV vancomycin pending cultures. 1/2 BC with staph epi, felt to be contaminant. Repeat blood cultures with no growth. Stool negative for C diff adn diarrhea resolved with proboiotic. She was treated with IV unasyn during her admission with good results. Her LLE erythema and tenderness diminished throughout her hospitalization. She remained afebrile and no further chills, diaphoresis, shortness of breath. She is discharged in stable condition and recommended to complete a course of augmenin and follow up with her PCP. Patient Condition at Discharge: Fair Plan - Discharge Summary Discharge Rx Participant: No New Discharge Prescriptions: Continue buPROPion HCL [Wellbutrin XL] 300 mg PO HS Simvastatin [Zocor] 40 mg PO DAILY Multivitamins, Thera [Multivitamin (formulary)] 1 tab PO DAILY Mirabegron [Myrbetriq] 50 mg PO DAILY ARIPiprazole [Abilify] 20 mg PO DAILY Tolterodine Tartrate [Tolterodine Tartrate ER] 4 mg PO DAILY Famotidine 40 mg PO DAILY DULoxetine HCL [Cymbalta] 60 mg PO HS Losartan [Cozaar] 50 mg PO DAILY #0 Ergocalciferol [Vitamin D2 (1250 Mcg = 40641 Iu)] 1,250 mcg PO MO Magnesium Hydroxide [Milk of Magnesia Concentrate] 7,200 mg PO DAILY PRN PRN Reason: Constipation Na Phos,M-B/Na Phos,Di-Ba [Fleet Adult] 133 ml RECTAL DAILY PRN PRN Reason: Constipation Vitamin E (Dl,Tocopheryl Acet) [Vitamin E (400 Iu = 180 mg)] 400 unit PO DAILY Rivaroxaban [Xarelto] 20 mg PO W/SUPPER Spironolactone 50 mg PO DAILY Brexpiprazole [Rexulti] 3 mg PO DAILY hydroCHLOROthiazide 25 mg PO DAILY Gabapentin 600 mg PO TID PRN PRN Reason: Pain bisacodyL [Dulcolax] 10 mg RECTAL DAILY PRN PRN Reason: Constipation Collagenase [Santyl Ointment] 1 applic TOPICAL DAILY Liquacel 30 ml PO BID Discharge Medication List Simvastatin [Zocor] 40 mg PO DAILY 06/23/13 [History] buPROPion HCL [Wellbutrin XL] 300 mg PO HS 06/23/13 [History] Mirabegron [Myrbetriq] 50 mg PO DAILY 07/30/17 [History] Multivitamins, Thera [Multivitamin (formulary)] 1 tab PO DAILY 07/30/17 [H istory] ARIPiprazole [Abilify] 20 mg PO DAILY 08/10/17 [History] Brexpiprazole [Rexulti] 3 mg PO DAILY 06/03/21 [History] DULoxetine HCL [Cymbalta] 60 mg PO HS 06/03/21 [History] Famotidine 40 mg PO DAILY 06/03/21 [History] Gabapentin 600 mg PO TID PRN 06/03/21 [History] Rivaroxaban [Xarelto] 20 mg PO W/SUPPER 06/03/21 [History] Spironolactone 50 mg PO DAILY 06/03/21 [History] Tolterodine Tartrate [Tolterodine Tartrate ER] 4 mg PO DAILY 06/03/21 [History] hydroCHLOROthiazide 25 mg PO DAILY 06/03/21 [History] Losartan [Cozaar] 50 mg PO DAILY #0 06/09/21 [Rx] Collagenase [Santyl Ointment] 1 applic TOPICAL DAILY 08/25/21 [History] Ergocalciferol [Vitamin D2 (1250 Mcg = 22928 Iu)] 1,250 mcg PO MO 08/25/21 [History] Liquacel 30 ml PO BID 08/25/21 [History] Magnesium Hydroxide [Milk of Magnesia Concentrate] 7,200 mg PO DAILY PRN 08/25/21 [History] Na Phos,M-B/Na Phos,Di-Ba [Fleet Adult] 133 ml RECTAL DAILY PRN 08/25/21 [History] Vitamin E (Dl,Tocopheryl Acet) [Vitamin E (400 Iu = 180 mg)] 400 unit PO DAILY 08/25/21 [History] bisacodyL [Dulcolax] 10 mg RECTAL DAILY PRN 08/25/21 [History] Follow up Appointment(s)/Referral(s): Geneva Maddox DO [Primary Care Provider] - 09/04/21 10:00 am Discharge Disposition: TRANSFER TO SNF/ECF
[2021-09-01 14:55] VITALS: BP 144/79; PULSE 67; RESP 18; TEMP 98.2
== END 2021-09-01 16:47 | DRG 872 ==
LOC: EC 10:04 → 4SSUR 14:28
PROVIDERS: ADMIT Family Medicine; ATTEND Family Medicine
DX: A41.9 Sepsis, unspecified organism (principal); L03.116 Cellulitis of left lower limb; N17.9 Acute kidney failure, unspecified; Z68.43 Body mass index [BMI] 50.0-59.9, adult; J96.10 Chronic respiratory failure, unspecified whether with hypoxia or hypercapnia; R65.20 Severe sepsis without septic shock; E66.9 Obesity, unspecified; E66.01 Morbid (severe) obesity due to excess calories; E11.22 Type 2 diabetes mellitus with diabetic chronic kidney disease; I12.9 Hypertensive chronic kidney disease with stage 1 through stage 4 chronic kidney disease, or unspecified chronic kidney disease; N18.30 Chronic kidney disease, stage 3 unspecified; S92.001D Unspecified fracture of right calcaneus, subsequent encounter for fracture with routine healing; W19.XXXD Unspecified fall, subsequent encounter; K52.9 Noninfective gastroenteritis and colitis, unspecified; L89.312 Pressure ulcer of right buttock, stage 2; L89.321 Pressure ulcer of left buttock, stage 1; F31.9 Bipolar disorder, unspecified; G25.81 Restless legs syndrome; J44.9 Chronic obstructive pulmonary disease, unspecified; E11.40 Type 2 diabetes mellitus with diabetic neuropathy, unspecified; Z20.822 Contact with and (suspected) exposure to COVID-19; Z99.81 Dependence on supplemental oxygen; R32 Unspecified urinary incontinence; E78.5 Hyperlipidemia, unspecified; G89.29 Other chronic pain; M54.50 Low back pain, unspecified; M10.9 Gout, unspecified; K21.9 Gastro-esophageal reflux disease without esophagitis; K44.9 Diaphragmatic hernia without obstruction or gangrene; M19.90 Unspecified osteoarthritis, unspecified site; E07.9 Disorder of thyroid, unspecified; Z87.01 Personal history of pneumonia (recurrent); Z88.5 Allergy status to narcotic agent; Z86.711 Personal history of pulmonary embolism; Z79.01 Long term (current) use of anticoagulants; Z87.891 Personal history of nicotine dependence; Z71.3 Dietary counseling and surveillance; Z79.899 Other long term (current) drug therapy; Z86.718 Personal history of other venous thrombosis and embolism; Z80.3 Family history of malignant neoplasm of breast
CPT/HCPCS: 36415; 71046; 74176; 80048; 80053; 81001; 82565; 83605; 84145; 85025; 85610; 85730; 86140; 87040; 87086; 87324; 87502; 87635; 93005; 94760; 96361; 96365; 96367; 99285

== ENCOUNTER → 2021-10-29 | Outpatient (CLI) | payer MEDICARE ==
--- NOTE | 2021-10-29 08:59 | XR ---
EXAMINATION TYPE: XR calcaneus 2V RT DATE OF EXAM: 10/29/2021 COMPARISON: None HISTORY: Calcaneal fracture TECHNIQUE: Two-view right calcaneus FINDINGS: There is a transverse fracture through the mid calcaneus. There is diastases of the inferio r aspect of the fracture line. Soft tissue swelling may be along the plantar surface. No significant interval healing is evident. IMPRESSION: 1. Vertical fracture through the mid calcaneus with diastases of the inferior aspect of the fracture fragments.
== END | disposition home or self-care (01) ==
LOC: RADXRMAIN 07:05
PROVIDERS: ATTEND Orthopaedic Surgery Orthopaedic Trauma
DX: S92.001A Unspecified fracture of right calcaneus, initial encounter for closed fracture (principal)

== ENCOUNTER → 2023-08-04 | Outpatient (CLI) | payer MEDICARE ==
--- NOTE | 2023-08-18 10:03 | CT ---
EXAMINATION TYPE: CT shoulder LT wo con CT DLP: 867.0 mGycm, Automated exposure control for dose reduction was used. DATE OF EXAM: 08/04/2023 3:22 PM COMPARISON: . None CLINICAL INDICATION:Female, 72 years old with history of Z96.9 ORTHO HARDWARE M25.512 L SHOULD PAIN Z 47.1; PHH, increased left shoulder pain TECHNIQUE: Axial images were obtained of the CT shoulder LT wo con, Additional coronal and sagittal r eformatted images and soft tissue and bone window were obtained for review. 3-D reconstruction was cr eated on a separate workstation. Contrast used: mL of , (None if empty) Oral contrast used: (None if empty) FINDINGS: Post fixation changes to the left shoulder with arthroplasty in place. Arthroplasty with st reak artifact limits evaluation of the surrounding structures. There is no evidence of dislocation. M ild periprosthetic lucency of the glenoid component best appreciated on coronal imaging. No evidence for periprosthetic lucency of the humeral component. Rotator pathology is somewhat limited given streak artifact the muscle volume of the supraspinatus an d infraspinatus appear within normal limits. Soft tissues of the shoulder are grossly unremarkable. T he visualized portions of the lungs demonstrate left lower lobe calcified granuloma. Scattered athero sclerosis of the arterial vasculature. No lymphadenopathy identified. IMPRESSION: Left shoulder arthroplasty with lucency around the glenoid component possibly representing loosening.
== END | disposition home or self-care (01) ==
LOC: RADCTMAIN 14:55
PROVIDERS: ATTEND Orthopaedic Surgery
DX: M25.512 Pain in left shoulder (principal); Z96.9 Presence of functional implant, unspecified; Z47.1 Aftercare following joint replacement surgery; Z96.612 Presence of left artificial shoulder joint

== ENCOUNTER 2024-01-03 08:57 | Day surgery (SDC) | payer MEDICARE ==
[~2024-01-03 08:57] MED LIST changes: -LACTATED RINGERS 1,000 ML IV SCH
[2024-01-03] MEDS: LACTATED RINGERS 1,000 ML IV SCH (10:21)
[2024-01-03 10:22] VITALS: TEMP 97.4
[2024-01-03] MEDS: LACTATED RINGERS 1,000 ML IV ONE (10:22)
[2024-01-03 10:26] LABS: Glucose,Whole Blood 115 mg/dL (70-110)
[2024-01-03] MEDS ORDERED: PROPOFOL 10 MG/ML 20 ML VIAL IV ONE (11:00)
[2024-01-03] MEDS ORDERED: LIDOCAINE 2% (PF) 20 MG/ML 5 ML VIAL ONE (11:00)
--- NOTE | 2024-01-03 11:05 | P.GSHP ---
History of Present Illness H&P Date: 01/03/24 Chief Complaint: Diarrhea This is a 73-year-old female presents today for colonoscopy patient has had issues with diarrhea. Past Medical History Past Medical History: COPD, Diabetes Mellitus, Deep Vein Thrombosis (DVT), GERD/Reflux, Hyperlipidemia, Hypertension, Mitral Valve Prolapse (MVP), Osteoarthritis (OA), Pneumonia, Pulmonary Embolus (PE), Skin Disorder Additional Past Medical History / Comment(s): Hx. bilateral cellulitis, RLS, bilateral PEs/R leg DVT after back surgery, MVP, NIDDM diet controlled, chronic head tremors, neuropathy bilateral feet, chronic low back pain. low iron anemia, urinary incontinence/urgency, scab on left arm from recent fall in shower History of Any Multi-Drug Resistant Organisms: None Reported Past Surgical History: Back Surgery, Bladder Surgery, Breast Surgery, Cholecystectomy, Heart Catheterization, Hernia Repair, Hysterectomy, Joint Replacement Additional Past Surgical History / Comment(s): spinal surgery with screws and metal plate, jennifer breast reduction, RT CHRISTIANO, COLONOSCOPY, BILAT CATARACTS REMOVED WITH LENS IMPLANTS, bladder suspension x2, hiatal hernia repair Past Anesthesia/Blood Transfusion Reactions: No Reported Reaction Smoking Status: Former smoker - Past Family History Mother Family Medical History: Cancer Additional Family Medical History / Comment(s): breast cancer Father Family Medical History: No Reported History Additional Family Medical History / Comment(s): Father was healthy Medications and Allergies Home Medications Medication Instructions Recorded Confirmed Type Simvastatin [Zocor] 40 mg PO DAILY 06/23/13 12/30/23 History buPROPion HCL [Wellbutrin XL] 300 mg PO HS 06/23/13 12/30/23 History Mirabegron [Myrbetriq] 50 mg PO DAILY 07/30/17 12/30/23 History Multivitamins, Thera [Multivitamin 1 tab PO DAILY 07/30/17 12/30/23 History (formulary)] ARIPiprazole [Abilify] 20 mg PO DAILY 08/10/17 12/30/23 History Brexpiprazole [Rexulti] 3 mg PO DAILY 06/03/21 12/30/23 History DULoxetine HCL [Cymbalta] 60 mg PO HS 06/03/21 12/30/23 History Famotidine 40 mg PO DAILY 06/03/21 12/30/23 History Gabapentin 600 mg PO HS PRN 06/03/21 01/03/24 History Rivaroxaban [Xarelto] 20 mg PO W/SUPPER 06/03/21 01/03/24 History Spironolactone 50 mg PO DAILY 06/03/21 12/30/23 History Tolterodine Tartrate [Tolterodine 4 mg PO DAILY 06/03/21 12/30/23 History Tartrate ER] hydroCHLOROthiazide 25 mg PO DAILY 06/03/21 12/30/23 History Losartan [Cozaar] 50 mg PO DAILY #0 06/09/21 12/30/23 Rx Ergocalciferol [Vitamin D2 (1250 1,250 mcg PO MO 08/25/21 12/30/23 History Mcg = 24381 Iu)] Vitamin E (Dl,Tocopheryl Acet) 400 unit PO DAILY 08/25/21 12/30/23 History [Vitamin E (400 Iu = 180 mg)] Budesonide/Glycopyr/Formoterol 1 puff INHALATION BID 12/30/23 12/30/23 History [Breztri Aerosphere Inhaler] Allergies Allergy/AdvReac Type Severity Reaction Status Date / Time morphine Allergy Nausea & Verified 01/03/24 10:03 Vomiting Surgical - Exam Vital Signs Temp Pulse Resp BP Pulse Ox 97.4 F L 98 20 139/66 96 01/03/24 10:11 01/03/24 10:11 01/03/24 10:11 01/03/24 10:11 01/03/24 10:11 - General well developed, well nourished, no distress - Eyes PERRL - ENT normal pinna, normal nares - Neck no masses - Respiratory normal expansion - Cardiovascular Rhythm: regular - Abdomen Abdomen: soft, non tender Results - Labs Abnormal Lab Results - Last 24 Hours (Table) 01/03/24 Range/Units 10:19 POC Glucose (mg/dL) 115 H (70-110) mg/dL Assessment and Plan Plan: Diarrhea. Will perform colonoscopy.
--- NOTE | 2024-01-03 12:17 | P.OP ---
Date of Procedure: 01/03/24 Preoperative Diagnosis: Gerd Diarrhea Postoperative Diagnosis: Hiatal hernia Antral gastritis Diverticulosis Procedure(s) Performed: Colonoscopy EGD Anesthesia: MAC Surgeon: Zain Clinton Pathology: other (Antrum, esophagus) Condition: stable Disposition: PACU Description of Procedure: The patient is placed on the endoscopy table in the lateral position. She received IV sedation. Juliane placed the oropharynx passed in the esophagus and stomach. Scope in place through the pylorus. The first and second portion of the duodenum appeared normal. Scope was then brought back to the antrum this appeared mildly Flaim. A biopsy performed. Scope was retroflexed and there was a moderate-sized paraesophageal hiatal hernia. The GE junction was at 38 cm. The distal esophagus appeared mildly Flaim. Biopsy performed at the proximal esophagus appeared normal. Scope withdrawn for patient. Next digital rectal exam was performed. This revealed no abnormality. Flex colonoscope was then placed patient anus passed. The colon. The patient was noted of significant diverticular disease. Scope not advanced beyond the l right colon secondary to tortuosity bowel. Several times were made to maneuver the colonoscope however this was not possible. To withdraw. In the transverse and descending and sigmoid colon there were diverticular changes noted. Scope was brought back to the rectum this appeared normal. Scope withdrawn the patient. Patient was scheduled for a barium enema.
[2024-01-03 12:23] VITALS: PULSE 93
[2024-01-03 13:18] VITALS: BP 128/70; RESP 18
--- NOTE | 2024-01-04 08:48 | FL ---
EXAMINATION TYPE: FL barium enema w air contrast DATE OF EXAM: 01/03/2024 COMPARISON: None CLINICAL INDICATION: Female, 73 years old with history of Incomplete colonoscopy; [facility], TECHNIQUE: A angled contrast barium enema study is performed. A total of 1 minute and 36 seconds of fluoroscopic time was utilized during procedure and 32 images obtained. Total dose area product (DA P) in uGy*m?, mGy*cm? (or similar): Provide. FINDINGS: Cryolite Recovery Operator view of the abdomen shows overall non-obstructive bowel gas pattern. Postsurgical ch anges are seen. Limited exam due to patient's mobility. Scattered diverticula are seen in the sigmoid colon. No obvio us obstruction or annular constricting lesion. No obvious filling defect. Limited assessment for poly ps. IMPRESSION: 1. Limited exam demonstrates no obvious obstruction or annular constricting lesion. 2. Mild sigmoid diverticulosis. [facility], , 01/04/2024 8:46 AM
== END 2024-01-03 14:02 | disposition home or self-care (01) ==
LOC: ORWHC2ENDO 08:57
PROVIDERS: ATTEND Surgery
DX: K29.70 Gastritis, unspecified, without bleeding (principal); K31.89 Other diseases of stomach and duodenum; K21.00 Gastro-esophageal reflux disease with esophagitis, without bleeding; K44.9 Diaphragmatic hernia without obstruction or gangrene; K57.30 Diverticulosis of large intestine without perforation or abscess without bleeding; J44.9 Chronic obstructive pulmonary disease, unspecified; M19.90 Unspecified osteoarthritis, unspecified site; E78.5 Hyperlipidemia, unspecified; R63.0 Anorexia; I10 Essential (primary) hypertension; E66.9 Obesity, unspecified; E11.40 Type 2 diabetes mellitus with diabetic neuropathy, unspecified; L03.90 Cellulitis, unspecified; G25.81 Restless legs syndrome; I34.1 Nonrheumatic mitral (valve) prolapse; Z86.711 Personal history of pulmonary embolism; Z86.718 Personal history of other venous thrombosis and embolism; Z90.49 Acquired absence of other specified parts of digestive tract; Z68.32 Body mass index [BMI] 32.0-32.9, adult; Z98.890 Other specified postprocedural states; Z90.710 Acquired absence of both cervix and uterus; Z87.891 Personal history of nicotine dependence; Z80.3 Family history of malignant neoplasm of breast; Z88.5 Allergy status to narcotic agent; Z79.02 Long term (current) use of antithrombotics/antiplatelets; Z79.811 Long term (current) use of aromatase inhibitors; Z79.01 Long term (current) use of anticoagulants; Z79.51 Long term (current) use of inhaled steroids; Z79.899 Other long term (current) drug therapy
CPT/HCPCS: 88305; 74280; 43239; 45330; J2704; J2003